=== PATIENT | female | born 1935 | race Caucasian/White ===

== ENCOUNTER → 2018-02-02 12:48 | Outpatient (CLI) | payer MEDICARE, SELFPAY ==
--- NOTE | 2018-02-02 13:05 | XR_ITS ---
XR chest 2V HISTORY: ITS.REASON: SHORTNESS OF BREATH ORDERING PHYSICIAN: Nj Kuo MD PATIENT AGE: 82 years COMPARISON: [id number] FINDINGS: Cardiac pacemaker device is present. Borderline cardiomegaly without failure. Chronic changes are present in the anterior clear space and in the right middle lobe. Increased markings are present in the left lung base laterally consistent with a patchy area of pneumonia. Right hemidiaphragm is slightly elevated. No acute bony anomalies. IMPRESSION: Chronic changes with patchy pneumonia in the left lung base laterally.
== END ==
PROVIDERS: PCP Family Medicine; Visit Provider Family Medicine
DX: R06.02 Shortness of breath (principal)
CPT/HCPCS: 71046

== ENCOUNTER → 2018-02-23 16:01 | Outpatient (CLI) | payer MEDICARE, SELFPAY ==
--- NOTE | 2018-02-23 16:06 | MM_ITS ---
MM Dig screening mamm BI w/CAD CAD Screening ORDERING PHYSICIAN : Nj Kuo MD PATIENT AGE: 82 years GENDER: Female COMPARISON: Previous mammograms: November 2015, July 2014. March 2010. INDICATION: Routine screening 82-year-old no hormones no new complaints noncontributory family history TECHNIQUE: Standard CC and MLO images were obtained. R2 CAD reviewed. FINDINGS: Low-density breast bilaterally with minimal fibrolinear elements. Generalized fatty replacement No dominant mass nor suspicious calcifications either breast.. No architectural distortion No significant new findings. Bilateral follow-up one year recommended . IMPRESSION:... ... Stable bilateral mammogram. Follow-up in one year recommended. BI-RADS Category: 1 Negative RECOMMENDED FOLLOW-UP: 1YR - 1 YEAR FOLLOW-UP (A letter has been sent to the patient regarding results of the study.)
== END ==
PROVIDERS: PCP Family Medicine; Visit Provider Family Medicine
DX: Z12.31 Encounter for screening mammogram for malignant neoplasm of breast (principal)
CPT/HCPCS: 77067

== ENCOUNTER → 2018-03-18 15:14 | Outpatient (POV) | payer MEDICARE, SELFPAY | PROVIDERS: PCP Family Medicine; Visit Provider Dermatology | DX: Z00.00 Encounter for general adult medical examination without abnormal findings (principal) ==

== ENCOUNTER 2018-08-12 09:45 | Outpatient (CLI) | payer MEDICARE, SELFPAY ==
[2018-08-12 10:50] VITALS: BP 112/54; PULSE 72; RESP 16; O2SAT 93
[2018-08-12 11:14] LABS: Anion Gap 13.6 mEq/L (5-15); Blood Urea Nitrogen 18 mg/dL (7-18); Calcium 9.5 mg/dL (8.5-10.1); Carbon Dioxide 27 mmol/L (21.0-32.0); Chloride 104 mmol/L (98-107); Creatinine,Serum 1.12 mg/dL (0.55-1.02); Estimated Glomerular Filt Rate 47 ml/min (>60); GFR (African American) 57 ML/MIN (>60); Glucose 93 mg/dL (74-106); Sodium 140 mmol/L (136-145)
[2018-08-12 11:17] LABS: Potassium 4.6 mmoL/L (3.5-5.1)
[2018-08-12 11:20] VITALS: BP 102/64; PULSE 75; RESP 18
[2018-08-12 11:30] VITALS: BP 92/58; PULSE 74; RESP 18
== END 2018-08-12 11:45 | disposition home or self-care (01) ==
LOC: INF 09:47
PROVIDERS: PCP Family Medicine; Visit Provider Urology
DX: N39.0 Urinary tract infection, site not specified (principal)
CPT/HCPCS: 80048; 96365; J1335

== ENCOUNTER 2018-08-13 09:50 | Outpatient (CLI) | payer MEDICARE, SELFPAY ==
[2018-08-13 10:30] VITALS: BP 142/95; PULSE 98; RESP 20; TEMP 36.4; O2SAT 96
[2018-08-13 11:00] VITALS: BP 138/74; PULSE 66; RESP 20; TEMP 36.4; O2SAT 96
== END 2018-08-13 11:00 | disposition home or self-care (01) ==
LOC: INF 10:09
PROVIDERS: PCP Family Medicine; Visit Provider Urology
DX: N39.0 Urinary tract infection, site not specified (principal)
CPT/HCPCS: 96365; J1335

== ENCOUNTER → 2018-08-14 10:11 | Outpatient (CLI) | payer MEDICARE, SELFPAY ==
[2018-08-14 10:24] VITALS: BP 146/59; PULSE 78; RESP 18; TEMP 36.2; O2SAT 98; BMI 27.3
[2018-08-14 11:15] VITALS: BP 124/64; PULSE 88; RESP 18; TEMP 36.7; O2SAT 97
== END ==
PROVIDERS: PCP Family Medicine; Visit Provider Urology
DX: N39.0 Urinary tract infection, site not specified (principal)
CPT/HCPCS: 96365; J1335

== ENCOUNTER → 2018-08-15 10:12 | Outpatient (CLI) | payer MEDICARE, SELFPAY ==
[2018-08-15 10:25] VITALS: BMI 27.3
[2018-08-15 10:30] VITALS: BP 120/50; PULSE 85; RESP 16; TEMP 36.4; O2SAT 100
[2018-08-15 11:20] VITALS: BP 112/60; PULSE 71; RESP 18; TEMP 36.7; O2SAT 100
== END ==
PROVIDERS: PCP Family Medicine; Visit Provider Urology
DX: N39.0 Urinary tract infection, site not specified (principal)
CPT/HCPCS: 96365; J1335

== ENCOUNTER 2018-08-16 10:04 | Outpatient (CLI) | payer MEDICARE, SELFPAY ==
[2018-08-16 10:14] VITALS: BP 115/64; PULSE 78; RESP 18; TEMP 36.5; O2SAT 98
[2018-08-16 11:05] VITALS: BP 112/68; PULSE 80; RESP 18; TEMP 36.6; O2SAT 98
== END 2018-08-16 11:05 | disposition home or self-care (01) ==
LOC: INF 10:04
PROVIDERS: Visit Provider Urology
DX: N39.0 Urinary tract infection, site not specified (principal)
CPT/HCPCS: 96365; J1335

== ENCOUNTER 2018-08-17 12:50 | Outpatient (CLI) | payer MEDICARE, SELFPAY ==
[2018-08-17 12:50] VITALS: BP 109/61; PULSE 97; RESP 20; TEMP 36.9; O2SAT 96
[2018-08-17 13:10] VITALS: BP 108/74; PULSE 68; RESP 20; TEMP 36.9; O2SAT 96
== END 2018-08-17 13:15 | disposition home or self-care (01) ==
LOC: INF 12:57
PROVIDERS: PCP Family Medicine; Visit Provider Urology
DX: N30.00 Acute cystitis without hematuria (principal)
CPT/HCPCS: 96365; J1335

== ENCOUNTER 2018-08-18 10:10 | Outpatient (CLI) | payer MEDICARE, SELFPAY ==
[2018-08-18 10:05] VITALS: BP 110/63; PULSE 108; RESP 18; TEMP 36.3; O2SAT 94
[2018-08-18 10:30] VITALS: BP 114/64; PULSE 79; RESP 18; TEMP 36.3; O2SAT 94
[2018-08-18 10:34] VITALS: BMI 26.9
[2018-08-18 10:45] VITALS: BP 114/64; PULSE 79; RESP 18; TEMP 36.3; O2SAT 95
[2018-08-18 11:15] VITALS: BP 124/63; PULSE 91; RESP 18; TEMP 36.2; O2SAT 94
== END 2018-08-18 11:15 | disposition home or self-care (01) ==
LOC: INF 10:24
PROVIDERS: PCP Family Medicine; Visit Provider Urology
DX: N30.00 Acute cystitis without hematuria (principal)
CPT/HCPCS: 96365; J1335

== ENCOUNTER 2018-08-19 11:15 | Outpatient (CLI) | payer MEDICARE, SELFPAY ==
[2018-08-19 11:25] VITALS: BP 116/68; PULSE 74; RESP 18; TEMP 36.7; O2SAT 96
[2018-08-19 12:10] VITALS: BP 118/69; PULSE 78; RESP 18; TEMP 36.7; O2SAT 96
== END 2018-08-19 12:10 | disposition home or self-care (01) ==
LOC: INF 11:15
PROVIDERS: PCP Family Medicine; Visit Provider Urology
DX: N39.0 Urinary tract infection, site not specified (principal)
CPT/HCPCS: 96365; J1335

== ENCOUNTER 2018-08-20 10:25 | Outpatient (CLI) | payer MEDICARE, SELFPAY ==
[2018-08-20 10:50] VITALS: BP 109/61; PULSE 75; RESP 18; TEMP 35.9; O2SAT 100
[2018-08-20 11:20] VITALS: BP 104/71; PULSE 70; RESP 18
[2018-08-20 11:35] VITALS: BP 119/61; PULSE 70; RESP 18
== END 2018-08-20 11:55 | disposition home or self-care (01) ==
LOC: INF 10:29
PROVIDERS: PCP Family Medicine; Visit Provider Urology
DX: N30.00 Acute cystitis without hematuria (principal)
CPT/HCPCS: 96365; J1335

== ENCOUNTER → 2018-08-21 10:15 | Outpatient (CLI) | payer MEDICARE, SELFPAY ==
[2018-08-21 10:15] VITALS: BP 104/62; PULSE 80; RESP 16; TEMP 36.2; O2SAT 95
[2018-08-21 10:54] VITALS: BP 111/67; PULSE 80; RESP 18; TEMP 36.2; O2SAT 95; BMI 26.9
== END ==
PROVIDERS: PCP Family Medicine; Visit Provider Urology
DX: N39.0 Urinary tract infection, site not specified (principal)
CPT/HCPCS: 96365; J1335

== ENCOUNTER → 2019-05-10 09:19 | Outpatient (CLI) | payer MEDICARE, SELFPAY ==
--- NOTE | 2019-05-10 09:25 | US_ITS ---
US liver HISTORY: ITS.REASON: ABN ALKALINE PHOSPHATASE TEST ORDERING PHYSICIAN: Nj Kuo MD PATIENT AGE: 83 years COMPARISON: None FINDINGS: Common bile duct measures 3.1 mm. The hepatic veins and portal veins appear to be unremarkable. The echogenicity of the liver is normal. Visualized portions of the right kidney and pancreas are normal. AP diameter of the right hepatic lobe is 10.6 cm. IMPRESSION: Normal ultrasound of the liver.
== END ==
PROVIDERS: PCP Family Medicine; Visit Provider Family Medicine
DX: R74.8 Abnormal levels of other serum enzymes (principal)
CPT/HCPCS: 76705

== ENCOUNTER → 2019-06-07 14:03 | Outpatient (POV) | payer MEDICARE, SELFPAY | PROVIDERS: Visit Provider Dermatology | DX: Z00.00 Encounter for general adult medical examination without abnormal findings (principal) ==

== ENCOUNTER → 2019-07-05 14:23 | Outpatient (POV) | payer MEDICARE, SELFPAY | PROVIDERS: Visit Provider Dermatology | DX: Z00.00 Encounter for general adult medical examination without abnormal findings (principal) ==

== ENCOUNTER 2019-08-11 16:00 | Outpatient (RCR) | payer MEDICARE, SELFPAY | END 2019-08-11 16:05 | disposition home or self-care (01) | LOC: PT 16:00 | PROVIDERS: Visit Provider Dermatology | DX: L97.211 Non-pressure chronic ulcer of right calf limited to breakdown of skin (principal) | CPT/HCPCS: 97140; 97162; 97597 ==

== ENCOUNTER → 2019-12-12 17:12 | Outpatient (CLI) | payer MEDICARE, SELFPAY | PROVIDERS: Visit Provider Nurse Practitioner Obstetrics & Gynecology | DX: N39.0 Urinary tract infection, site not specified (principal) | CPT/HCPCS: 87086; 87088; 87186 ==

== ENCOUNTER → 2020-09-20 12:48 | Outpatient (CLI) | payer MEDICARE, SELFPAY ==
--- NOTE | 2020-09-20 12:53 | MM_ITS ---
PROCEDURE: MM DIG SCREENING MAMM BI W/CAD Digital Breast Tomosynthesis Included CLINICAL INDICATION: SCREENING There is no personal or family history of breast cancer. COMPARISON: MG DMSB DIG MAMM-SCREEN JOSÉ MIGUEL from 08/08/2014 MG DMSB DIG MAMM-SCREEN JOSÉ MIGUEL from 12/04/2015 MG [facility] MM Dig screening mamm BI w/CAD from 02/23/2018 TECHNIQUE: Standard CC and MLO images and 3D Tomosynthesis was obtained. R2 CAD reviewed. FINDINGS: There are fibroglandular densities are seen throughout both breast and the findings are fairly symmetrical bilaterally. There is minimal arterial calcification in each breast. There is a cardiac pacemaker device projecting over left axilla. This lesion and no suspicious microcalcifications. IMPRESSION: Mild to moderate breast density with no suspicious lesions seen BI-RAD Category: 2 Benign Finding(s) FOLLOW-UP: 1YR 1 Year Follow-up (A letter has been sent to the patient regarding results of the study.) Dictated by: Dr. David Fair MD 09/25/2020 09:33 Dr. David Fair MD in [place] 09/25/2020 09:33
== END ==
PROVIDERS: PCP Family Medicine; Visit Provider Family Medicine
DX: Z12.31 Encounter for screening mammogram for malignant neoplasm of breast (principal)
CPT/HCPCS: 77063; 77067

== ENCOUNTER → 2020-12-05 13:57 | Outpatient (CLI) | payer MEDICARE, SELFPAY ==
--- NOTE | 2020-12-05 14:04 | XR_ITS ---
PROCEDURE: XR ELBOW RT MIN 3V CLINICAL INDICATION: RT ELBOW PAIN COMPARISON: No exams were available for comparison FINDINGS: No fracture or dislocation. No lytic or blastic change. There is normal mineralization. The joint spaces are well-preserved. No significant degenerative/arthritic changes. No erosive changes evident. Other findings:Mild soft tissue swelling is present at the olecranon region with some faint calcification in the soft tissues at this area. IMPRESSION: No acute fracture or dislocation. Frontal mild soft tissue swelling and minimal soft tissue calcification at the olecranon region which could be posttraumatic or inflammatory Dictated by: Armen Gonzales MD 12/05/2020 15:22 Armen Gonzales MD in [place] 12/05/2020 15:22
--- NOTE | 2020-12-05 14:04 | XR_ITS ---
PROCEDURE: XR SHOULDER LT MIN 2V CLINICAL INDICATION: ROTATOR CUFF SYNDROME OF LT SHOULDER Left shoulder pain COMPARISON: No exams were available for comparison FINDINGS: There are minimal osteoarthritic changes of the glenohumeral joint. There is some mild hypertrophy along the inferior aspect the acromion with resultant subacromial stenosis. Cardiac pacemaker is present from left subclavian approach. Other findings:None. 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 Hypertrophy along the inferior aspect of the acromion with resultant subacromial stenosis which may result in rotator cuff disease. Dictated by: Armen Gonzales MD 12/05/2020 15:24 Armen Gonzales MD in [place] 12/05/2020 15:24
== END ==
PROVIDERS: PCP Family Medicine; Visit Provider Family Medicine
DX: M75.102 Unspecified rotator cuff tear or rupture of left shoulder, not specified as traumatic (principal); M25.521 Pain in right elbow
CPT/HCPCS: 73030; 73080

== ENCOUNTER → 2020-12-14 09:07 | Outpatient (CLI) | payer MEDICARE, SELFPAY ==
--- NOTE | 2020-12-14 09:11 | US_ITS ---
PROCEDURE: US ABDOMEN LIMITED CLINICAL INDICATION: ABN LIVER FUNCTION COMPARISON: No exams were available for comparison FINDINGS: PANCREAS: Unremarkable. No obvious mass or abnormal fluid collection. No ductal dilatation LIVER: No focal liver lesions demonstrated. Homogeneous echogenicity. No intrahepatic biliary ductal dilatation evident. There is appropriate direction of blood flow within a non dilated portal vein RIGHT KIDNEY: Unremarkable. Normal size and echogenicity. No hydronephrosis GALLBLADDER: Prior cholecystectomy. The common bile duct normal at 4 mm. IMPRESSION: Status post cholecystectomy otherwise negative right upper quadrant ultrasound Dictated by: Armen Gonzales MD 12/14/2020 17:28 Armen Gonzales MD in [place] 12/14/2020 17:28
== END ==
PROVIDERS: PCP Family Medicine; Visit Provider Family Medicine
DX: R94.5 Abnormal results of liver function studies (principal)
CPT/HCPCS: 76705

== ENCOUNTER → 2021-09-03 13:06 | Outpatient (POV) | payer MEDICARE, SELFPAY | PROVIDERS: Visit Provider Dermatology | DX: Z00.00 Encounter for general adult medical examination without abnormal findings (principal) ==

== ENCOUNTER 2021-12-15 06:47 | Observation (INO) | payer MEDICARE, SELFPAY ==
[2021-12-15] VITALS (23 sets, daily range): BP systolic 120–156; BP diastolic 68–94; PULSE 48–93; RESP 16–29; TEMP 36.4–36.6; O2SAT 84–98; BMI 25.8; BMI 26.6
--- NOTE | 2021-12-15 06:58 | ECG_ITS ---
APPROVED REPORT Exam: Resting ECG HR:82 bpm ECG Measurements Heart Rate 82 AXES QRSd 100 QRS 111 QT 387 T -69 QTc 426 Conclusion UNCERTAIN IRREGULAR RHYTHM ELECTRONIC VENTRICULAR PACEMAKER -- CONTOUR ANALYSIS BASED ON INTRINSIC RHYTHM POSSIBLE RIGHT VENTRICULAR HYPERTROPHY [SOME/ALL OF: PROMINENT R IN V1, LATE TRANSITION, RAD, BAKARI, SSS] ST DEVIATION AND MODERATE T-WAVE ABNORMALITY, CONSIDER LATERAL ISCHEMIA [-0.1+ mV T-WAVE IN I/aVL/V5/V6] ST DEVIATION AND MODERATE T-WAVE ABNORMALITY, CONSIDER INFERIOR ISCHEMIA [-0.1+ mV T-WAVE IN II/aVF] ABNORMAL ECG UNCONFIRMED REPORT Electronically signed by : Demetrio Mendosa MD 12/16/2021 17:28:58
--- NOTE | 2021-12-15 07:04 | XR_ITS ---
PROCEDURE INFORMATION: Exam: XR Chest Exam date and time: 12/15/2021 7:04 AM Age: 86 years old Clinical indication: Shortness of breath; Prior surgery; Surgery date: 6+ months; Surgery type: Pacemaker; Additional info: SOA TECHNIQUE: Imaging protocol: XR of the chest. Views: 1 view. COMPARISON: DX CXR2V XR chest 2V 02/02/2018 1:07 PM FINDINGS: Tubes, catheters and devices: There is a cardiac pacemaker in place. Lungs: There is ill-defined airspace and interstitial opacity in the perihilar region on the right, and right lower lobe. There is mild prominence of interstitial markings in the left perihilar region. Pleural spaces: There is a pleural effusion at the right lung base. Heart/Mediastinum: Unremarkable. No cardiomegaly. Bones/joints: Unremarkable. IMPRESSION: 1. Perihilar interstitial prominence, with possible infiltrate right lower lobe. This may be seen with pulmonary edema. Clinical correlation is recommended. 2. Small right-sided pleural effusion.
--- NOTE | 2021-12-15 07:11 | PC.NURSE ---
Covid Swab sent to the lab
--- NOTE | 2021-12-15 07:12 | ECG_ITS ---
APPROVED REPORT Exam: Resting ECG HR:74 bpm ECG Measurements Heart Rate 74 AXES QRSd 96 QRS 109 QT 411 T -86 QTc 438 Conclusion UNCERTAIN IRREGULAR RHYTHM ELECTRONIC VENTRICULAR PACEMAKER -- CONTOUR ANALYSIS BASED ON INTRINSIC RHYTHM RIGHT AXIS DEVIATION [QRS AXIS > 100] ST DEVIATION AND MODERATE T-WAVE ABNORMALITY, CONSIDER LATERAL ISCHEMIA [-0.1+ mV T-WAVE IN I/aVL/V5/V6] ST DEVIATION AND MODERATE T-WAVE ABNORMALITY, CONSIDER INFERIOR ISCHEMIA [-0.1+ mV T-WAVE IN II/aVF] ABNORMAL ECG UNCONFIRMED REPORT Electronically signed by : Demetrio Mendosa MD 12/16/2021 17:28:48
--- NOTE | 2021-12-15 07:16 | PC.NURSE ---
radiology bedside doing chest xray
--- NOTE | 2021-12-15 07:42 | HMH.EDSOB ---
ED Disposition Clinical Impression: SIRS (systemic inflammatory response syndrome) Congestive heart failure Qualifiers: Heart failure type: unspecified Heart failure chronicity: acute Qualified Code(s): I50.9 - Heart failure, unspecified A-fib Qualifiers: Atrial fibrillation type: unspecified chronic Qualified Code(s): I48.20 - Chronic atrial fibrillation, unspecified UTI (urinary tract infection) Qualifiers: Urinary tract infection type: site unspecified Hematuria presence: without hematuria Qualified Code(s): N39.0 - Urinary tract infection, site not specified Hypothyroidism Qualifiers: Hypothyroidism type: acquired Qualified Code(s): E03.9 - Hypothyroidism, unspecified Disposition: Admitted As Inpatient Condition on Discharge: Fair Referrals: Maximino Naqvi MD [Primary Care Provider] - - Critical Care Critical Care Time: No Attestation: On 12/15/21, the high probability of a clinically significant, sudden or life threatening deterioration of the following system(s) required my full and direct attention, intervention and personal management. The time I documented below is in addition to time spent performing reported procedures but includes the following listed in this critical care notation. Medical Decision Making - Medical Records Medical records reviewed: Yes: I reviewed the patient's medical records. - Leon Inquiry Pt receiving controlled substance: No Vital Signs: 12/15/21 06:49 12/15/21 07:00 12/15/21 07:15 Temperature 97.5 F L Temperature Source Oral Pulse Rate 76 60 Pulse Rate [Right Radial] 82 Respiratory Rate 18 29 H 21 Blood Pressure 152/94 H 144/74 H Blood Pressure [Right Arm] 152/94 H Blood Pressure Mean Blood Pressure Mean [Right Arm] 113 Blood Pressure Source [Right Arm] Automatic Cuff Blood Pressure Position [Right Arm] Sitting 02 Sat by Pulse Oximetry 90 L 88 L 95 Oxygen Delivery Method Room Air Oxygen Flow Rate (LPM) 12/15/21 07:30 12/15/21 07:45 12/15/21 08:09 Temperature Temperature Source Pulse Rate 48 L 75 93 H Pulse Rate [Right Radial] Respiratory Rate 16 22 26 H Blood Pressure 148/86 H 152/84 H Blood Pressure [Right Arm] Blood Pressure Mean Blood Pressure Mean [Right Arm] Blood Pressure Source [Right Arm] Blood Pressure Position [Right Arm] 02 Sat by Pulse Oximetry 93 L 96 92 L Oxygen Delivery Method Oxygen Flow Rate (LPM) 12/15/21 08:13 01/30/22 08:29 12/15/21 09:00 Temperature Temperature Source Pulse Rate 86 81 83 Pulse Rate [Right Radial] Respiratory Rate 24 16 27 H Blood Pressure 156/82 H 146/74 H 144/88 H Blood Pressure [Right Arm] Blood Pressure Mean 109 98 Blood Pressure Mean [Right Arm] Blood Pressure Source [Right Arm] Blood Pressure Position [Right Arm] 02 Sat by Pulse Oximetry 95 94 L 96 Oxygen Delivery Method Nasal Cannula Nasal Cannula Nasal Cannula Oxygen Flow Rate (LPM) 2 2 2 12/15/21 09:30 Temperature Temperature Source Pulse Rate 89 Pulse Rate [Right Radial] Respiratory Rate 24 Blood Pressure 140/81 Blood Pressure [Right Arm] Blood Pressure Mean 107 Blood Pressure Mean [Right Arm] Blood Pressure Source [Right Arm] Blood Pressure Position [Right Arm] 02 Sat by Pulse Oximetry 96 Oxygen Delivery Method Nasal Cannula Oxygen Flow Rate (LPM) 2 - Lab Data Lab results reviewed: Yes: I reviewed the patient's lab results. Lab Results 12/15/21 07:11: WBC 8.5, RBC 4.51, Hgb 12.5, Hct 48.3 H, MCV 107.1 H, MCH 27.8, MCHC 26.0 L, RDW 20.6 H, Plt Count 280, MPV 23.6 H, Neut % (Auto) 70.2, Lymph % (Auto) 19.6, Ralls % (Auto) 8.1, Eos % (Auto) 2.1, Baso % (Auto) 15.1 H, Neut # (Auto) 6.0, Lymph # (Auto) 1.7, [place] # (Auto) 0.7, Eos # (Auto) 0.2, Baso # (Auto) 1.3 H, ESR 17 12/15/21 07:11: Sodium 143, Potassium 3.5, Chloride 108 H, Carbon Dioxide 24, Anion Gap 14.5, BUN 16, Creatinine 0.60, Estimated Creat Clear 49, Estimated GFR 95, Est GFR ( Amer
[2021-12-15 07:48] LABS: Coronavirus 19, PCR Not Detected (NotDetected); Influenza A, PCR Not Detected (NotDetected); Influenza B, PCR Not Detected (NotDetected)
--- NOTE | 2021-12-15 07:59 | PC.NURSE ---
pt up to the bathroom, nurses bedside
[2021-12-15 08:02] LABS: Alanine Aminotransferase 15 U/L (12-78); Albumin Level 4.5 g/dl (3.5-5.0); Alkaline Phosphatase 157 U/L (38-126); Anion Gap 14.5 mEq/L (5-15); Aspartate Amino Transferase 29 U/L (14-36); Basophils # 1.3 K/mm3 (0-0.2); Basophils % 15.1 % (0.1-2.0); Bilirubin,Direct 0.1 mg/dl (0.0-0.4); Bilirubin,Indirect 2.2 mg/dL (0.0-0.9); Bilirubin,Total 2.3 mg/dl (0.2-1.3); Bilirubin,Unconjugated 2.2 mg/dL (0.0-1.1); Blood Urea Nitrogen 16 mg/dl (7-17); Calcium 9.8 mg/dl (8.4-10.2); Carbon Dioxide 24 mmol/L (22.0-30.0); Chloride 108 mmol/L (98-107); Creatinine Clearance Estimated 49 mL/min (50-200); Eosinophils # 0.2 K/mm3 (0.0-0.4); Eosinophils % 2.1 % (0.1-12.0); Estimated Glomerular Filt Rate 95 ml/min (>60); GFR (African American) 115 ML/MIN (>60); Glucose 110 mg/dl (74-100); Hematocrit 48.3 % (37.0-47.0); Hemoglobin 12.5 g/dL (12.2-16.2); Lymphocytes # 1.7 K/mm3 (0.7-4.5); Lymphocytes % 19.6 % (10-50); Mean Corpuscular Hemoglobin 27.8 pg (27.0-31.2); Mean Corpuscular Volume 107.1 fl (81-99); Mean Platelet Volume 23.6 fl (7.4-10.4); Monocytes # 0.7 K/mm3 (0.1-1.0); Monocytes % 8.1 % (1.7-9.3); Neutrophils % 70.2 % (37.0-80.0); Platelet Count 280 K/mm3 (142-424); Potassium 3.5 mmoL/L (3.5-5.1); Red Blood Count 4.51 M/mm3 (4.20-5.40); Red Cell Distribution Width 20.6 % (11.5-17.5); Sodium 143 mmol/L (136-145); Total Protein,Serum 7.8 g/dl (6.3-8.2); White Blood Count 8.5 K/mm3 (4.8-10.8)
--- NOTE | 2021-12-15 08:09 | PC.NURSE ---
assisted pt out of restroom and into wheelchair. Helped her to get back in bed and hooked her back up to the oxygen, cardiac monitoring, and vital signs. Call light is within reach. Pt resting in bed at this time.
--- NOTE | 2021-12-15 08:10 | PC.NURSE ---
urine output 300cc
[2021-12-15 08:14] LABS: Microscopic, Urine URINE MICROSCOPIC (MICROSCOPIC)
[2021-12-15 08:17] LABS: NT Pro Brain Natriuretic Pep. 840 pg/mL (0-450)
[2021-12-15 08:18] LABS: Appearance,Urine SL CLOUDY (Clear); Bilirubin,Urine Negative (Negative); Blood, Urine 1+ (Negative); Color,Urine YELLOW (Yellow); Glucose,Urine (UA) Negative (Negative); Ketones,Urine Negative (Negative); Leukocyte Esterase,Urine 3+ (Negative); Nitrate,Urine POSITIVE (Negative); PH,Urine 5.5 (5.0-8.5); Protein,Urine Negative (Negative); Urobilinogen,Urine 0.2 EU/dl (0.2)
[2021-12-15 08:20] LABS: Troponin I < 0.01 ng/ml (0.00-0.034)
[2021-12-15 08:21] LABS: Procalcitonin 0.048 ng/mL (0.0-2.0)
[2021-12-15 08:27] LABS: Bacteria,Urine 4+ /lpf; Squamous Epithelial Cell,Urine Occasional #/hpf (0-5); WBC,Urine 50-100 #/hpf (0-3)
[2021-12-15 08:35] LABS: Thyroid Stimulating Hormone 5.33 uIU/mL (0.465-4.68)
[2021-12-15 08:40] LABS: Erythrocyte Sedimentation Rate 17 mm/hr (0-30)
--- NOTE | 2021-12-15 08:44 | PC.NURSE ---
pt up to bathroom per wheelchair, urine output 450cc
--- NOTE | 2021-12-15 09:30 | PC.NURSE ---
Patient was taken to the bathroom. Output in the hat was 100mL. Patient stated not all of the urine made it into the hat.
--- NOTE | 2021-12-15 09:46 | PC.NURSE ---
called house for admission, stated that she would let us know when we have a bed available, currently using open rooms for outpatient services, but once someone left she would have it cleaned STAT and would notify admissions with room number.
--- NOTE | 2021-12-15 09:49 | PC.NURSE ---
up to the bathroom with assistance x1.
--- NOTE | 2021-12-15 09:52 | PC.NURSE ---
assisted pt out of the bathroom. Voided 550cc. of clear urine. Helped back into bed; placed back on cardiac monitoring, vital signs, and oxygen of 2 liters. call light within reach.
--- NOTE | 2021-12-15 10:17 | PC.NURSE ---
Lab in room drawing lactic acid and blood cultures.
--- NOTE | 2021-12-15 10:36 | PC.NURSE ---
pt up to bathroom at this time. assistance of 1.
--- NOTE | 2021-12-15 10:44 | PC.NURSE ---
pt back in bed after going to the bathroom. Voided 500cc of clear urine. assisted back to bed with assist x1. hooked up to cardiac monitoring, oxygen and vital signs. call light within reach.
--- NOTE | 2021-12-15 11:30 | PC.NURSE ---
report called to floor. states room not ready will call when cleaned
[2021-12-15 11:33] LABS: Troponin I < 0.01 ng/ml (0.00-0.034)
--- NOTE | 2021-12-15 11:46 | PC.NURSE ---
pt up to the bathroom, assist x1.
--- NOTE | 2021-12-15 11:55 | PC.NURSE ---
Wheeled patient to the bathroom. Output was 400 mL
--- NOTE | 2021-12-15 12:00 | PC.NURSE ---
dietary brought patient a lunch tray. pt sitting up eating. call light within reach.
--- NOTE | 2021-12-15 12:13 | PC.NURSE ---
Notified [facility] ED RN that room is clean and ready for patient to come up.
--- NOTE | 2021-12-15 12:45 | PC.NURSE ---
Pt arrived to the floor at this time.
[2021-12-15 13:39] LABS: Troponin I < 0.01 ng/ml (0.00-0.034)
[2021-12-16] VITALS: BP 149/73; PULSE 90; PULSE 92; RESP 16; TEMP 36.7; O2SAT 94
--- NOTE | 2021-12-16 03:35 | PC.NURSE ---
pt with strong foul smelling urine noted, cloudy and yuri colored, pt sob w/exertion, 02 sats noted to be 88% on 2 L pnc and increased to 3L pnc. pt states soa better than what it was before coming into the hospital.
[2021-12-16 04:00] VITALS: BP 156/82; PULSE 66; PULSE 90; RESP 18; TEMP 36.8; O2SAT 94
[2021-12-16 05:00] VITALS: BMI 32.0
--- NOTE | 2021-12-16 07:17 | HMH.PHAVTE ---
[facility] Pharmacy VTE Monitoring - Patient Demographics Admission date: 12/15/21 Report Date: 12/16/21 Time: 07:18 Allergies/Adverse Reactions: Patient Allergies ciprofloxacin [From CIPRO] Allergy (Mild, Verified 06/20/20 13:23) I-RASH Height: 1.5 m Weight: 72 kg Patient Problems: Current Active Problems Congestive heart failure (Acute) A-fib (Acute) UTI (urinary tract infection) (Acute) SIRS (systemic inflammatory response syndrome) (Acute) Hypothyroidism (Acute) - VTE Risk Labs: VTE Related Lab Results Hgb 12.5 g/dL (12.2-16.2) 12/15/21 07:11 Hct 48.3 % (37.0-47.0) H 12/15/21 07:11 Plt Count 280 K/mm3 (142-424) 12/15/21 07:11 BUN 16 mg/dl (7-17) 12/15/21 07:11 Creatinine 0.60 mg/dl (0.52-1.04) 12/15/21 07:11 Estimated Creat Clear 49 mL/min (50-200) 12/15/21 07:11 Was VTE Risk Assessment Performed: Yes VTE Score: 5 VTE Risk Level: Low Risk - Prophylaxis VTE Prophylaxis Ordered?: Yes Types of VTE Prophylaxis: TEDS Knee High, Pharmacological Location of Applied Device: Bilateral Lower Extremeties Pharmacologic Type: Other (XARELTO)
--- NOTE | 2021-12-16 07:30 | XR_ITS ---
FINAL REPORT TECHNIQUE: Single view chest CLINICAL HISTORY: sob COMPARISON: 12/15/2021 FINDINGS: A single view of the chest was obtained. There is a left subclavian pacemaker. The heart and mediastinum are within normal limits. There is pulmonary vascular congestion. Pulmonary opacities may represent edema or pneumonia. There is right base atelectasis or pneumonia with small, right greater than left pleural effusions. There is no pneumothorax. Osseous structures are unremarkable. IMPRESSION: Pulmonary opacities which may represent edema or pneumonia with right greater than left pleural effusions. Reviewed, Interpreted and Dictated by Gerry Ospina III, MD Transcribed by Agatah Dailey Authenticated by Gerry Ospina III, MD on 12/16/2021 08:57:[address] [facility]
--- NOTE | 2021-12-16 07:30 | HMH.PHAINT ---
MEDICATION RECONCILIATION COMPLETED ON PATIENT USING EXTERNAL FILL HISTORY FROM PHARMACY. -PARAM BURCH, [place]
[2021-12-16 07:40] VITALS: BP 137/56; PULSE 86; RESP 14; TEMP 36.4; O2SAT 91
[2021-12-16 07:44] LABS: Basophils # 0.1 K/mm3 (0-0.2); Basophils % 0.8 % (0.1-2.0); Eosinophils # 0.2 K/mm3 (0.0-0.4); Hematocrit 37.6 % (37.0-47.0); Hemoglobin 11.7 g/dL (12.2-16.2); Lymphocytes # 1.4 K/mm3 (0.7-4.5); Lymphocytes % 17.4 % (10-50); Mean Corpuscular HGB Conc 31.1 g/dL (31.8-35.4); Mean Platelet Volume 7.9 fl (7.4-10.4); Monocytes # 0.6 K/mm3 (0.1-1.0); Monocytes % 6.9 % (1.7-9.3); Neutrophils % 72.8 % (37.0-80.0); Platelet Count 299 K/mm3 (142-424); Red Blood Count 4.18 M/mm3 (4.20-5.40); White Blood Count 8.2 K/mm3 (4.8-10.8)
[2021-12-16 07:58] LABS: Anion Gap 13.4 mEq/L (5-15); Blood Urea Nitrogen 16 mg/dl (7-17); Calcium 9.3 mg/dl (8.4-10.2); Carbon Dioxide 26 mmol/L (22.0-30.0); Chloride 107 mmol/L (98-107); Creatinine Clearance Estimated 48 mL/min (50-200); Estimated Glomerular Filt Rate 95 ml/min (>60); GFR (African American) 115 ML/MIN (>60); Glucose 103 mg/dl (74-100); Magnesium 1.9 mg/dl (1.6-2.3); Potassium 3.4 mmoL/L (3.5-5.1); Sodium 143 mmol/L (136-145)
[2021-12-16 08:00] VITALS: PULSE 86
--- NOTE | 2021-12-16 08:00 | CA_ITS ---
APPROVED REPORT EXAM: Comprehensive 2D, Doppler, and color-flow Echocardiogram Package Clerk: Tracey Neely CRT Ht: 5 ft 7 in Wt: 165lbs BSA: 1.86 BP: 140/81 mmHg Indications: Congestive Heart Failure, Atrial Fibrillation, TIA, PACER 2D Dimensions LVOT 1.74 cm (M/F) 1.5-2.5 LA Volume 44.50 mL LA Volume Index 23.90 mL/m2 (M/F) 16-34 M-Mode Dimensions RVDd 3.16 cm (0.9-2.6) LA Diam 3.89 cm (1.9-4.0) LVDd 4.07 cm (3.5-5.7) Ao Diam 3.13 cm (2.0-3.7) LVDs 2.56 cm (3.5-5.7) IVSd 1.35 cm (0.6-1.1) PWd 0.77 cm (0.6-1.1) EF (Teich) 67.50% FS 37.10% EDV (Teich) 72.90 mL TAPSE 1.26 (<1.7) ESV (Teich) 23.70 mL LV Diastology E Decel Time 87.00 (160-240 msec) E/A Ratio 2.45 LAT E' 11.20 (<10 cm/sec) LAT A' 7.20 cm/s E/LAT E' Ratio 10.76 (>14) Aortic Valve AO Peak GR. 6.00 mmHg Mitral Valve MV E Max Javed. 121.00 (40-130 cm/s) MV A Velocity 49.00 (40-130 cm/s) E/A Ratio 2.45 MV Decel. Time 87.00 (160-240 ms) MV PHT 25.00 ms Pulmonary Valve PV Peak Velocity 81.00 (50-150 cm/s) Tricuspid Valve TR P. Velocity 380.00 cm/s RAP Estimate 10.00 mmHg RVSP 67.60 mmHg Left Ventricle Left atrium is moderately enlarged, left ventricle is normal size, mild concentric left ventricular hypertrophy, visually estimated ejection fraction 50%, there is abnormal septal motion, diastolic parameters are inconclusive. Right Ventricle Right atrium and right ventricle moderately enlarged, contractility of the right ventricle is mildly reduced, there is catheter noted in the right ventricle which is likely pacemaker lead. Aortic Valve Aortic valve is minimally thickened and calcified without aortic stenosis or significant aortic insufficiency. Mitral Valve Mitral valve is grossly normal, there is mild mitral regurgitation. Tricuspid Valve Tricuspid valve is minimally thickened, there is moderate tricuspid regurgitation, calculated right ventricular systolic pressure is 57 mmHg. Pulmonic Valve Pulmonic valve is poorly visualized. Great Vessels Aortic root is normal size. Inferior vena cava is poorly visualized. Pericardium No significant pericardial effusion noted. Conclusion 1. Biatrial enlargement, normal left ventricular size, mild concentric left ventricular hypertrophy, visually estimated ejection fraction 50%, there is abnormal septal motion. Diastolic parameters are inconclusive. 2. Moderately enlarged right ventricle with mild reduced contractility. 3. Mild mitral and moderate tricuspid regurgitation, calculated right ventricular systolic pressure is 57 mmHg. 4. No significant pericardial effusion noted. 5. Inferior vena cava is poorly visualized. Electronically signed by : Prince Cardenas MD 12/16/2021 22:05:14
[2021-12-16 08:42] VITALS: O2SAT 88
--- NOTE | 2021-12-16 09:05 | HMH.HPDC ---
General - General Admission date:: 12/15/21 Discharge date: 12/16/21 *Admission Date: 12/15/21 *Chief complaint: Dyspnea/upper abdominal pain/dysuria *History of present illness: 86-year-old white female who recently established care with our practice who has been diagnosed with congestive heart failure, atrial fibrillation and chronic urinary tract infections. She has been prescribed Lasix by her previous physician but had not been taking this on a daily basis. She also had quite a bit of upheaval since the of her in June, and has been progressively more tired and short of air. Over the past couple of days this became worse, came to the emergency department yesterday when she was found to have bilateral pleural effusions, ankle edema, dyspnea, new oxygen requirement and evidence of UTI was admitted to the hospital. [facility] History I have reviewed the patient's past medical history: Yes Medical History: Reports:: Anxiety, Atrial Fibrillation, Cancer (melanoma, no chemo), Hyperlipidemia, Hypertension, Internal Pacemaker, Transient Ischemic Attacks (TIA), Ulcer Denies:: Diabetes Mellitus Type 1, Diabetes Mellitus Type 2, Lung Disease, MRSA, Seizures *Have you ever received a pneumonia vaccine?: Yes *Have you received a flu vaccine this season?: Yes Other Medical History: Reports: Arthritis (both knees, neck, hands), Cataracts (one removed right eye), Hypothyroidism, Thyroid Disease Other Surgeries: Yes: Cholecystectomy, Colonoscopy, Hysterectomy-Total, Pacemaker Amputation: No Fractures: No - *Social History Smoking Status: Never smoker Alcohol Intake: never Alcohol Intake Frequency:: holidays/special occasions only Substance Use Type: denies use *Occupational Status:: retired Housing: house Household Members: none *Travel in the last 8 weeks: None - Psychiatric History Pschychiatric History:: Reports:: Anxiety Family Hx:: No significant family history Review of Systems - Review of Systems Review of systems:: pertinent systems reviewed and negative unless documented below - *Neurologic Denies headache(s), Denies seizure-like activity Exam Vital signs and Labs for Last 24 Hours: Temp Pulse Resp BP Pulse Ox 97.5 F L 86 14 137/56 L 88 L 12/16/21 07:40 12/16/21 07:40 12/16/21 07:40 12/16/21 07:40 12/16/21 08:42 Laboratory Results - last 24 hr 12/15/21 10:15: Troponin I < 0.01 12/15/21 10:25: Lactate 1.0 12/15/21 13:04: Troponin I < 0.01 12/16/21 07:25: WBC 8.2, RBC 4.18 L, Hgb 11.7 L, Hct 37.6, MCV 90.0, MCH 28.0, MCHC 31.1 L, RDW 16.0, Plt Count 299, MPV 7.9, Neut % (Auto) 72.8, Lymph % (Auto) 17.4, [place] % (Auto) 6.9, Eos % (Auto) 2.0, Baso % (Auto) 0.8, Neut # (Auto) 6.0, Lymph # (Auto) 1.4, [place] # (Auto) 0.6, Eos # (Auto) 0.2, Baso # (Auto) 0.1 12/16/21 07:25: Sodium 143, Potassium 3.4 L, Chloride 107, Carbon Dioxide 26, Anion Gap 13.4, BUN 16, Creatinine 0.60, Estimated Creat Clear 48, Estimated GFR 95, Est GFR ( Amer) 115, Glucose 103 H, Calcium 9.3, Magnesium 1.9 I & O for Last 24 hours: Intake & Output 12/13/21 12/14/21 12/15/21 12/16/21 11:59 11:59 11:59 11:59 Intake Total 120 / 120 Output Total 600 / 600 Balance -480 / -480 Weight 160 lb 158 lb 11.725 oz Microbiology Reports for the Last 24 Hours: Microbiology 12/15/21 08:00 Urine,Clean Catch Urine Culture - Preliminary - Constitutional no acute distress - *Routine HEENT Exam Head: Present: normocephalic Eye: Present: EOMI, PERRL ENT: Present: mucous membranes moist - *Routine Neck Exam Present: supple. Absent: lymphadenopathy - *Routine Respiratory Exam Present: rales Comments: In bilateral bases. - *Routine Cardiovascular Exam Present: irregular rhythm - *Routine Abdominal Exam Present: soft, normoactive bowel sounds. Absent: tenderness Comments: Minimal tenderness in the epigastric area. - *Routine Rectal Exam Rectal:: deferred - *Routine Genitalia Exam Genita
--- NOTE | 2021-12-16 09:26 | SW/DCPLANNER ---
PATIENT IS DISCHARGING HOME TODAY AND NEEDS HOME 02, PATIENT HAS CHOSEN [facility]. SENT REFERRAL FOR A PORTABLE TANK TO BE DELIVERED TO HER ROOM PRIOR TO DISCHARGE. SHE IS TO SEE DR RENO IN THE OFFICE ON , 2 SONS AT BEDSIDE..
== END 2021-12-16 10:30 | disposition home or self-care (01) ==
LOC: ER 09:54 → 2ND 10:11
PROVIDERS: Admitting Provider Internal Medicine Adolescent Medicine; Emergency Provider Emergency Medicine; PCP Internal Medicine Adolescent Medicine; Visit Provider Internal Medicine Adolescent Medicine
DX: I11.0 Hypertensive heart disease with heart failure (principal); N39.0 Urinary tract infection, site not specified; Z79.01 Long term (current) use of anticoagulants; Z79.899 Other long term (current) drug therapy; I48.20 Chronic atrial fibrillation, unspecified; E03.9 Hypothyroidism, unspecified; I50.9 Heart failure, unspecified; Z95.0 Presence of cardiac pacemaker; Z20.822 Contact with and (suspected) exposure to COVID-19
CPT/HCPCS: G0378; 71045; 80048; 80076; 81001; 83605; 83735; 83880; 84145; 84436; 84443; 84484; 85025; 85651; 86140; 87040; 87086; 87088; 87186; 93005; 93306; 94760; 94761; 96365; 96375; 99284; C9803; J1335; J2405; U0003; U0005

== ENCOUNTER 2022-02-27 21:57 | Observation (INO) | payer MEDICARE, SELFPAY ==
[2022-02-27] VITALS (8 sets, daily range): BP systolic 85–97; BP diastolic 52–75; PULSE 71–75; RESP 12–18; TEMP 36.4; O2SAT 93–98; BMI 25.8
--- NOTE | 2022-02-27 22:06 | ECG_ITS ---
APPROVED REPORT Exam: Resting ECG HR:77 bpm ECG Measurements Heart Rate 77 AXES QRSd 181 QRS -85 QT 502 T 101 QTc 534 Conclusion ELECTRONIC VENTRICULAR PACEMAKER ABNORMAL RHYTHM ECG UNCONFIRMED REPORT Electronically signed by : Demetrio Mendosa MD 02/28/2022 09:56:23
--- NOTE | 2022-02-27 22:17 | XR_ITS ---
PROCEDURE INFORMATION: Exam: XR Chest Exam date and time: 02/27/2022 10:27 PM Age: 86 years old Clinical indication: Sternal or substernal pain; Prior surgery; Surgery date: 6+ months; Surgery type: Pacemaker placed. ; Additional info: Chest pain TECHNIQUE: Imaging protocol: XR of the chest. Views: 2 views. COMPARISON: CR XR CHEST PORTABLE 12/16/2021 8:13 AM FINDINGS: Tubes, catheters and devices: Dual lead left-sided cardiac pacemaker. Lungs: In the right lung base there is atelectasis /pneumonia. Left lung shows linear atelectasis in the left lower lobe. Pleural spaces: Mild right pleural effusion. Heart/Mediastinum: Cardiomegaly. Diaphragm: Elevated right hemidiaphragm. Bones/joints: Unremarkable. IMPRESSION: Mild right pleural effusion with associated atelectasis /pneumonia.
[2022-02-27 22:39] LABS: Alanine Aminotransferase 25 U/L (12-78); Albumin Level 4.2 g/dl (3.5-5.0); Albumin/Globulin Ratio 1.4 (1.1-1.8); Alkaline Phosphatase 146 U/L (38-126); Anion Gap 15.2 mEq/L (5-15); Aspartate Amino Transferase 37 U/L (14-36); Bilirubin,Total 1.9 mg/dl (0.2-1.3); Blood Urea Nitrogen 38 mg/dl (7-17); Calcium 9.4 mg/dl (8.4-10.2); Carbon Dioxide 22 mmol/L (22.0-30.0); Chloride 103 mmol/L (98-107); Creatinine Clearance Estimated 40 mL/min (50-200); Estimated Glomerular Filt Rate 43 ml/min (>60); GFR (African American) 52 ML/MIN (>60); Globulin 2.9 g/dL (1.3-3.2); Glucose 162 mg/dl (74-100); Potassium 4.2 mmoL/L (3.5-5.1); Sodium 136 mmol/L (136-145); Total Protein,Serum 7.1 g/dl (6.3-8.2)
[2022-02-27 22:40] LABS: Alanine Aminotransferase 25 U/L (12-78); Albumin Level 4.3 g/dl (3.5-5.0); Alkaline Phosphatase 152 U/L (38-126); Aspartate Amino Transferase 36 U/L (14-36); Bilirubin,Direct 0.1 mg/dl (0.0-0.4); Bilirubin,Indirect 1.8 mg/dL (0.0-0.9); Bilirubin,Total 1.9 mg/dl (0.2-1.3); Bilirubin,Unconjugated 1.8 mg/dL (0.0-1.1); Total Protein,Serum 7.1 g/dl (6.3-8.2)
[2022-02-27 22:57] LABS: Troponin I < 0.01 ng/ml (0.00-0.034)
[2022-02-27 23:10] LABS: Thyroid Stimulating Hormone 1.74 uIU/mL (0.465-4.68)
[2022-02-27 23:22] LABS: NT Pro Brain Natriuretic Pep. 883 pg/mL (0-450)
--- NOTE | 2022-02-27 23:24 | HMH.EDDIZZ ---
ED Disposition Clinical Impression: Duodenitis, OZZIE (acute kidney injury) Hypothyroidism Qualifiers: Hypothyroidism type: acquired Qualified Code(s): E03.9 - Hypothyroidism, unspecified Disposition: Admitted As Inpatient Condition on Discharge: Good Referrals: Maximino Naqvi MD [Primary Care Provider] - - Critical Care Critical Care Time: No Attestation: On 02/27/22, the high probability of a clinically significant, sudden or life threatening deterioration of the following system(s) required my full and direct attention, intervention and personal management. The time I documented below is in addition to time spent performing reported procedures but includes the following listed in this critical care notation. Medical Decision Making - Medical Records Medical records reviewed: Yes: I reviewed the patient's medical records. - Leon Inquiry Pt receiving controlled substance: No Vital Signs: 02/27/22 21:57 02/27/22 22:43 02/27/22 22:44 Temperature 97.6 F Temperature Source Oral Pulse Rate 72 71 Pulse Rate [Left Radial] 75 Respiratory Rate 18 14 14 Blood Pressure 96/54 L 97/52 L Blood Pressure [Right Arm] 90/75 L Blood Pressure Mean [Right Arm] 80 Blood Pressure Position Supine Sitting Blood Pressure Position [Right Arm] Sitting 02 Sat by Pulse Oximetry 93 L 94 L 95 Oxygen Delivery Method Room Air Room Air Room Air 02/27/22 22:45 Temperature Temperature Source Pulse Rate 75 Pulse Rate [Left Radial] Respiratory Rate 16 Blood Pressure 96/55 L Blood Pressure [Right Arm] Blood Pressure Mean [Right Arm] Blood Pressure Position Standing Blood Pressure Position [Right Arm] 02 Sat by Pulse Oximetry 98 Oxygen Delivery Method Room Air - Lab Data Lab results reviewed: Yes: I reviewed the patient's lab results. Lab Results 02/27/22 22:12: Sodium 136, Potassium 4.2, Chloride 103, Carbon Dioxide 22, Anion Gap 15.2 H, BUN 38 H, Creatinine 1.20 H, Estimated Creat Clear 40, Estimated GFR 43 L, Est GFR ( Amer) 52 L, Glucose 162 H, Calcium 9.4, Total Bilirubin 1.9 H, AST 37 H, ALT 25, Alkaline Phosphatase 146 H, Troponin I < 0.01, Total Protein 7.1, Albumin 4.2, Globulin 2.9, Albumin/Globulin Ratio 1.4, TSH 1.74 02/27/22 22:12: Total Bilirubin 1.9 H, Direct Bilirubin 0.1, Conjugated Bilirubin 0.0, Indirect Bilirubin 1.8 H, Unconjugated Bilirubin 1.8 H, AST 36, ALT 25, Alkaline Phosphatase 152 H, Total Protein 7.1, Albumin 4.3 02/27/22 22:12: NT-Pro-B Natriuret Pep 883 H, TSH 1.79, Thyroxine (T4) 12.0 H 02/27/22 22:12: Amylase 50 02/27/22 22:12: WBC 8.2, RBC 4.61, Hgb 12.7, Hct 40.9, MCV 88.7, MCH 27.5, MCHC 31.1 L, RDW 18.3 H, Plt Count 245, MPV 8.9, Neut % (Auto) 73.8, Lymph % (Auto) 16.2, [place] % (Auto) 6.6, Eos % (Auto) 1.6, Baso % (Auto) 1.7, Neut # (Auto) 6.1, Lymph # (Auto) 1.3, [place] # (Auto) 0.5, Eos # (Auto) 0.1, Baso # (Auto) 0.1 02/27/22 22:12: Lipase 116 02/28/22 00:04: SARS-CoV-2 (PCR) Not detected, Influenza A Untype (PCR) Not detected, Influenza Type B (PCR) Not detected Result diagrams: 02/27/22 22:12 02/27/22 22:12 Orders (Tests/Meds): ED MEDICATIONS Generic Name Dose Route Start Last Admin Trade Name Freq PRN Reason Stop Dose Admin Sodium Chloride 1,000 mls @ 999 mls/hr 02/27/22 23:45 02/27/22 23:43 Sod Chlor 0.9% 1000ml Bag IV 02/28/22 00:45 999 mls/hr .Q1H1M ALBERTO Administration ORDERS Category Date Time Status Troponin I Q3H Lab 02/28/22 01:30 Ordered Troponin I Q3H Lab 02/28/22 04:30 Ordered UA [Urinalysis and Microscopic] Stat Lab 02/27/22 23:40 Ordered - Radiology Data #1 Image(s): Chest Image Reviewed: Yes I have reviewed radiologist's interpretation Preliminary Findings: Abnormal - CT Data CT Scan: Abdomen, Pelvis Time Received: 00:[address] Reviewed: Yes: I have viewed the radiologist's interpretation Preliminary Findings: Abnormal - ECG Data Tracing #1 Pacemaker function: normal pacer function - Physician
--- NOTE | 2022-02-27 23:40 | CT_ITS ---
PROCEDURE INFORMATION: Exam: CT Abdomen And Pelvis Without Contrast Exam date and time: 02/27/2022 11:47 PM Age: 86 years old Clinical indication: Abdominal pain TECHNIQUE: Imaging protocol: Computed tomography of the abdomen and pelvis without contrast. Radiation optimization: All CT scans at this facility use at least one of these dose optimization techniques: automated exposure control; mA and/or kV adjustment per patient size (includes targeted exams where dose is matched to clinical indication); or iterative reconstruction. COMPARISON: US ABDOMEN LIMITED 12/14/2020 9:15 AM FINDINGS: Pleural spaces: Small right pleural effusion. No left pleural effusion. Heart: Cardiomegaly Liver: Normal. No mass. Gallbladder and bile ducts: Cholecystectomy. Pancreas: Peripancreatic inflammatory changes. These findings could indicate acute pancreatitis. Spleen: Normal. No splenomegaly. Adrenal glands: Normal. No mass. Kidneys and ureters: Punctate non-obstructing right renal stone. No hydronephrosis. Stomach and bowel: Inflammation around the 1st and 2nd portion of the duodenum concerning for duodenitis. Appendix: Normal appendix. Intraperitoneal space: Small amount of free fluid in the pelvis. Arteries: Unremarkable. No abdominal aortic aneurysm. Lymph nodes: Unremarkable. No enlarged lymph nodes. Urinary bladder: Stones in the urinary bladder dependent portion. Reproductive: Unremarkable as visualized. Bones/joints: Unremarkable. No acute fracture. Soft tissues: Unremarkable. IMPRESSION: 1. Peripancreatic inflammatory changes concerning for acute pancreatitis. Correlate with amylase and lipase. 2. Inflammation involving the 1st and 2nd portion of the duodenum which could reflect duodenitis. 3. Punctate non-obstructing right renal stone. No hydronephrosis. 4. Cholecystectomy. 5. Normal appendix. 6. Small amount of free fluid. 7. Bladder stones.
[2022-02-27 23:43] LABS: Thyroid Stimulating Hormone 1.79 uIU/mL (0.465-4.68)
[2022-02-27 23:44] LABS: Basophils # 0.1 K/mm3 (0-0.2); Basophils % 1.7 % (0.1-2.0); Eosinophils # 0.1 K/mm3 (0.0-0.4); Eosinophils % 1.6 % (0.1-12.0); Hematocrit 40.9 % (37.0-47.0); Hemoglobin 12.7 g/dL (12.2-16.2); Lymphocytes # 1.3 K/mm3 (0.7-4.5); Lymphocytes % 16.2 % (10-50); Mean Corpuscular HGB Conc 31.1 g/dL (31.8-35.4); Mean Corpuscular Hemoglobin 27.5 pg (27.0-31.2); Mean Corpuscular Volume 88.7 fl (81-99); Mean Platelet Volume 8.9 fl (7.4-10.4); Monocytes # 0.5 K/mm3 (0.1-1.0); Monocytes % 6.6 % (1.7-9.3); Neutrophils # 6.1 K/mm3 (1.8-7.8); Neutrophils % 73.8 % (37.0-80.0); Platelet Count 245 K/mm3 (142-424); Red Blood Count 4.61 M/mm3 (4.20-5.40); Red Cell Distribution Width 18.3 % (11.5-17.5); White Blood Count 8.2 K/mm3 (4.8-10.8)
[2022-02-27 23:48] LABS: Amylase 50 U/L (30-110)
[2022-02-27 23:51] LABS: Lipase 116 U/L (23-300)
[2022-02-28] VITALS (18 sets, daily range): BP systolic 84–123; BP diastolic 41–73; PULSE 65–104; RESP 14–22; TEMP 35.7–37.2; O2SAT 89–96; BMI 25.7
[2022-02-28 00:10] LABS: Coronavirus 19, PCR Not Detected (NotDetected); Influenza A, PCR Not Detected (NotDetected); Influenza B, PCR Not Detected (NotDetected)
--- NOTE | 2022-02-28 00:20 | PC.NURSE ---
paged dr doty
--- NOTE | 2022-02-28 00:20 | PC.NURSE ---
ER speaking with dr doty
--- NOTE | 2022-02-28 00:30 | PC.NURSE ---
HOUSE NOTIFIED OF ADMISSION
--- NOTE | 2022-02-28 01:30 | PC.NURSE ---
sofia [employer] warehouse specialist called report at [phone] to Yulia HERNANDEZ
[2022-02-28 01:59] LABS: Troponin I < 0.01 ng/ml (0.00-0.034)
--- NOTE | 2022-02-28 02:15 | PC.NURSE ---
PT ARRIVED TO FLOOR VIA STRETCHER FROM ED W/STAFF @ [id number]
[2022-02-28 05:34] LABS: Basophils # 0.1 K/mm3 (0-0.2); Basophils % 1.8 % (0.1-2.0); Eosinophils % 0.5 % (0.1-12.0); Hematocrit 35.5 % (37.0-47.0); Lymphocytes # 0.9 K/mm3 (0.7-4.5); Lymphocytes % 13.4 % (10-50); Mean Corpuscular HGB Conc 31.8 g/dL (31.8-35.4); Mean Corpuscular Hemoglobin 27.2 pg (27.0-31.2); Mean Corpuscular Volume 85.7 fl (81-99); Mean Platelet Volume 9.2 fl (7.4-10.4); Monocytes # 0.5 K/mm3 (0.1-1.0); Monocytes % 6.6 % (1.7-9.3); Neutrophils # 5.5 K/mm3 (1.8-7.8); Neutrophils % 77.7 % (37.0-80.0); Platelet Count 205 K/mm3 (142-424); Red Blood Count 4.14 M/mm3 (4.20-5.40); Red Cell Distribution Width 18.2 % (11.5-17.5)
[2022-02-28 05:44] LABS: Chloride 107 mmol/L (98-107); Hemoglobin 11.4 g/dL (12.2-16.2); Potassium 4.1 mmoL/L (3.5-5.1); Sodium 137 mmol/L (136-145)
[2022-02-28 05:46] LABS: Blood Urea Nitrogen 43 mg/dl (7-17); Creatinine Clearance Estimated 37 mL/min (50-200); Estimated Glomerular Filt Rate 39 ml/min (>60); GFR (African American) 47 ML/MIN (>60)
[2022-02-28 05:47] LABS: Alanine Aminotransferase 18 U/L (12-78); Albumin Level 3.4 g/dl (3.5-5.0); Albumin/Globulin Ratio 1.4 (1.1-1.8); Alkaline Phosphatase 128 U/L (38-126); Anion Gap 12.1 mEq/L (5-15); Aspartate Amino Transferase 32 U/L (14-36); Bilirubin,Total 1.9 mg/dl (0.2-1.3); Calcium 7.8 mg/dl (8.4-10.2); Carbon Dioxide 22 mmol/L (22.0-30.0); Globulin 2.5 g/dL (1.3-3.2); Glucose 124 mg/dl (74-100); Lipase 42 U/L (23-300); Total Protein,Serum 5.9 g/dl (6.3-8.2)
[2022-02-28 06:14] LABS: Troponin I < 0.01 ng/ml (0.00-0.034)
--- NOTE | 2022-02-28 07:17 | P.CONPHA_ITS ---
[facility] Pharmacy VTE Monitoring - Patient Demographics Admission date: 02/28/22 Report Date: 02/28/22 Time: 07:17 Allergies/Adverse Reactions: Patient Allergies ciprofloxacin [From CIPRO] Allergy (Mild, Verified 02/24/22 11:47) I-RASH Height: 1.68 m Weight: 72.575 kg Patient Problems: Current Active Problems Duodenitis (Acute) OZZIE (acute kidney injury) (Acute) Hypothyroidism (Acute) - VTE Risk Labs: VTE Related Lab Results Hgb 11.4 g/dL (12.2-16.2) L D 02/28/22 05:25 Hct 35.5 % (37.0-47.0) L 02/28/22 05:25 Plt Count 205 K/mm3 (142-424) 02/28/22 05:25 BUN 43 mg/dl (7-17) H 02/28/22 05:25 Creatinine 1.30 mg/dl (0.52-1.04) H 02/28/22 05:25 Estimated Creat Clear 37 mL/min (50-200) 02/28/22 05:25 Was VTE Risk Assessment Performed: Yes VTE Score: 3 VTE Risk Level: Low Risk Clinical Trial Participant: No - Prophylaxis VTE Prophylaxis Ordered?: Yes Types of VTE Prophylaxis: TEDS Knee High
--- NOTE | 2022-02-28 07:25 | HMH.PHAINT ---
home medication list verified using list from outpatient pharmacy and cardiology office
--- NOTE | 2022-02-28 07:26 | HMH.HP ---
*Admission Date: 02/28/22 *Chief complaint: Weakness, OZZIE, nausea *History of present illness: Ms. bradford is a pleasant 86-year-old female with history of A. fib, combined CHF, hypertension, chronic anticoagulation. Has recently been seen by both her PCP and cardiology with adjustments to her regimen for heart failure and A. fib. Presented to the ER yesterday due to worsening pain in her neck and back. Got worse yesterday and she felt more dizzy and fatigued. Denies man emesis but was having bloating and discomfort in her upper abdomen accompanied by nausea. No diarrhea. On presentation to the ER found to be hypotensive. Work-up positive for duodenitis on imaging. Concern for UTI so UA was ordered but not obtained until this morning. No leukocytosis. Electrolytes acceptable/within normal limits. Slight OZZIE noted as well on labs with increase from baseline of 0.7 to 1.2. Of note, has recently been increased on her metoprolol over the past month from 100 twice daily to 200 twice daily with the addition of verapamil at the beginning of this week. Tolerating Lasix for peripheral edema with drastic improvement in her lower extremity swelling. Heart rate better controlled at this time in the 70s. Goal between 60 and 80 per cardiology. Pleasant on exam this morning. States she feels little bit better. Tolerating IV fluids. No shortness of breath. On room air. [facility] History I have reviewed the patient's past medical history: Yes Medical History: Reports:: Anxiety, Atrial Fibrillation, Congestive Heart Failure, Hyperlipidemia, Hypertension, Internal Pacemaker, Transient Ischemic Attacks (TIA), Ulcer Denies:: Cancer, Diabetes Mellitus Type 1, Diabetes Mellitus Type 2, Lung Disease, MRSA, Seizures *Have you ever received a pneumonia vaccine?: No *Have you received a flu vaccine this season?: No Other Medical History: Reports: Arthritis, Cataracts, Hypothyroidism, Thyroid Disease Laterality Cases: Right: Cataract, Bilateral: Total Knee Replacement Other Surgeries: Yes: Cardiac Surgery, Cholecystectomy, Colonoscopy, EGD, Hysterectomy-Total, Pacemaker, Tubal Ligation Amputation: No Fractures: No - *Social History Last grade of school completed: High school graduate Smoking Status: Never smoker Alcohol Intake: never Alcohol Intake Frequency:: holidays/special occasions only Substance Use Type: denies use *Occupational Status:: retired Housing: house Household Members: none *Travel in the last 8 weeks: None - Psychiatric History Pschychiatric History:: Reports:: Anxiety Family Hx:: Cancer, Diabetes, Stroke Review of Systems - Review of Systems Review of systems:: pertinent systems reviewed and negative unless documented below (14 point review of systems performed, pertinent positives and negatives as per HPI) - *Neurologic Denies seizure-like activity Meds Home Medications Medication Instructions Recorded Confirmed Type Aspirin [Aspirin 81mg EC Tab] 81 mg PO DAILY 08/12/18 02/27/22 History clonazepam 0.5 mg tablet 0.5 mg PO TIDP PRN 12/12/19 02/27/22 History lisinopril 10 mg tablet 5 mg PO DAILY 12/12/19 02/28/22 History rosuvastatin 10 mg tablet 10 mg PO DAILY 12/12/19 02/27/22 History Rivaroxaban [Xarelto 20mg Tablet*] 20 mg PO PM 12/15/21 02/28/22 History Metoprolol Succinate [Metoprolol 200 mg PO BID 02/27/22 02/28/22 History Succinate 200mg Tablet*] Verapamil HCl [Verapamil ER] 180 mg PO DAILY 02/27/22 02/28/22 History Furosemide [Furosemide 40MG tAB*] 40 mg PO DAILY 02/28/22 02/28/22 History Levothyroxine Sodium 200 mcg PO DAILY 02/28/22 02/28/22 History [Levothyroxine 200mcg (0.2mg) Tab] Allergies Allergy/AdvReac Type Severity Reaction Status Date / Time ciprofloxacin [From CIPRO] Allergy Mild I-RASH Verified 02/24/22 11:47 Exam Vital signs and Labs for Last 24 Hours: Temp Pulse Resp BP Pulse Ox 96.3 F L 65 18 93/41 L 93 L 02/28/22 03:05 02/28/22 04:00 02/28/22 03:05 02/28/22 03:05
--- NOTE | 2022-02-28 11:10 | HMH.PTEV ---
Physical Therapy Evaluation Rehab PT IP Evaluation Start: 02/28/22 08:33 Freq: ONCE Status: Active Protocol: Document 02/28/22 11:07 [email or web address] (Rec: 02/28/22 11:10 PHORNE [id number]) Subjective/History History History 86 yowf adm to [facility] with OZZIE and ABD pain. She reports she lives alone, 1 step to enter, uses a rolator for ambulation at baseline. Subjective Subjective Pt reports feeling less pain this am, tender to B LE in gaitor area, but this is normal for her. Rehab PT IP Eval Objective Appearance Patient Behavior Appropriate Patient Orientation Person,Place,Time Difficulty following instructions none Speech Pattern Clear Ambulation Patient Able to Ambulate Yes Ambulation Observation IP General Gait Pattern Observation Shuffling Step Ambulation Distance (feet) 30 Ambulation Assistive Device Rolling Walker Ambulation Ability Supervision/Stand by Balance Ability to Arise Able, w/o using arms Sitting Balance Steady, safe Standing Balance Steady, wide stance Dynamic Sitting Balance Ability Good Dynamic Standing Balance Ability Fair Transfers Bed Transfer Ability Supervision/Stand by Chair Transfer Ability Supervision/Stand by Sit to Stand Bed Transfer Ability Supervision/Stand by Sit to Stand Chair Transfer Ability Supervision/Stand by ROM All Extremities PT ROM Status WFL MMT All Extremities PT MMT WFL Rehab PT IP prob,goals,plan Problems Date of Evaluation: 02/28/22 Discharge Plan PT Discharge Plan Pt is appropriate to return home once medically stable, would benefit from home health therapy after D/C. G -code Required No Eval Complexity Eval Charge Codes 75073 - Moderate Complexity PHYSICIAN CERTIFICATION: I certify the specified therapy services for Vanessa Chávez are required, authorized, and reviewed every 30 days.
--- NOTE | 2022-02-28 11:56 | SW/DCPLANNER ---
I spoke with this patient this afternoon regarding discharge plans. Patient stated that she lives at home alone with assistance from her family. Patient is not interested in any services at this time including home health. Patient stated that she should be ready for discharge tomorrow. I will continue to follow up with this patient if she has any needs/questions.
[2022-02-28 12:58] LABS: Microscopic, Urine URINE MICROSCOPIC (MICROSCOPIC)
[2022-02-28 13:03] LABS: Appearance,Urine CLOUDY (Clear); Bilirubin,Urine Negative (Negative); Blood, Urine 1+ (Negative); Color,Urine AMBER (Yellow); Glucose,Urine (UA) Negative (Negative); Ketones,Urine Negative (Negative); Leukocyte Esterase,Urine 1+ (Negative); Nitrate,Urine Negative (Negative); PH,Urine 5.5 (5.0-8.5); Protein,Urine 2+ (Negative); Specific Gravity, Urine >= 1.030 (1.005-1.030); Urobilinogen,Urine 0.2 EU/dl (0.2)
[2022-02-28 13:35] LABS: Bacteria,Urine 1+ /lpf; WBC,Urine 20-50 #/hpf (0-3)
--- NOTE | 2022-02-28 15:51 | PC.NURSE ---
PT IS RESTING IN BED. NO COMPLAINTS OF DISCOMFORT. ALERT AND ORIENTED X4. PT TOLERATED SITTING UP IN THE CHAIR FOR SEVERAL HOURS THIS SHIFT. AMBULATES TO THE BATHROOM WITH 1 ASSIST. EATING AND DRINKING FAIR. PACED ON TELEMETRY. LUNG SOUNDS CLEAR. ABDOMEN SOFT WITH MILD EPIGASTRIC TENDERNESS. NORMAL BOWEL SOUNDS. WILL CONTINUE TO MONITOR.
[2022-02-28 18:11] LABS: Chloride 104 mmol/L (98-107); Potassium 4.2 mmoL/L (3.5-5.1); Sodium 138 mmol/L (136-145)
[2022-02-28 18:14] LABS: Anion Gap 13.2 mEq/L (5-15); Blood Urea Nitrogen 40 mg/dl (7-17); Calcium 8.1 mg/dl (8.4-10.2); Carbon Dioxide 25 mmol/L (22.0-30.0); Creatinine Clearance Estimated 34 mL/min (50-200); Estimated Glomerular Filt Rate 36 ml/min (>60); GFR (African American) 43 ML/MIN (>60); Glucose 129 mg/dl (74-100)
[2022-03-01] VITALS: BP 125/83; PULSE 110; PULSE 94; RESP 20; TEMP 36.8; O2SAT 91
[2022-03-01 04:00] VITALS: BP 123/87; PULSE 100; PULSE 110; RESP 20; TEMP 36.6; O2SAT 89
[2022-03-01 05:00] VITALS: BMI 25.6
[2022-03-01 06:33] LABS: Basophils # 0.1 K/mm3 (0-0.2); Basophils % 1.8 % (0.1-2.0); Eosinophils # 0.2 K/mm3 (0.0-0.4); Eosinophils % 2.8 % (0.1-12.0); Hematocrit 36.7 % (37.0-47.0); Hemoglobin 11.6 g/dL (12.2-16.2); Lymphocytes # 1.4 K/mm3 (0.7-4.5); Lymphocytes % 19.5 % (10-50); Mean Corpuscular HGB Conc 31.6 g/dL (31.8-35.4); Mean Corpuscular Hemoglobin 27.9 pg (27.0-31.2); Mean Corpuscular Volume 88.1 fl (81-99); Mean Platelet Volume 8.6 fl (7.4-10.4); Monocytes # 0.6 K/mm3 (0.1-1.0); Monocytes % 7.9 % (1.7-9.3); Neutrophils # 4.9 K/mm3 (1.8-7.8); Platelet Count 222 K/mm3 (142-424); Red Blood Count 4.16 M/mm3 (4.20-5.40); Red Cell Distribution Width 18.6 % (11.5-17.5); White Blood Count 7.2 K/mm3 (4.8-10.8)
[2022-03-01 06:41] LABS: Chloride 107 mmol/L (98-107); Sodium 138 mmol/L (136-145)
[2022-03-01 06:42] LABS: Potassium 4.3 mmoL/L (3.5-5.1)
[2022-03-01 06:44] LABS: Alanine Aminotransferase 19 U/L (12-78); Albumin Level 3.6 g/dl (3.5-5.0); Albumin/Globulin Ratio 1.4 (1.1-1.8); Alkaline Phosphatase 150 U/L (38-126); Anion Gap 12.3 mEq/L (5-15); Aspartate Amino Transferase 27 U/L (14-36); Bilirubin,Total 1.6 mg/dl (0.2-1.3); Blood Urea Nitrogen 33 mg/dl (7-17); Calcium 8.2 mg/dl (8.4-10.2); Carbon Dioxide 23 mmol/L (22.0-30.0); Creatinine Clearance Estimated 48 mL/min (50-200); Estimated Glomerular Filt Rate 60 ml/min (>60); GFR (African American) 72 ML/MIN (>60); Globulin 2.6 g/dL (1.3-3.2); Glucose 88 mg/dl (74-100); Magnesium 2.3 mg/dl (1.6-2.3); Total Protein,Serum 6.2 g/dl (6.3-8.2)
[2022-03-01 08:00] VITALS: BP 133/83; PULSE 98; RESP 16; TEMP 37.3; O2SAT 93
--- NOTE | 2022-03-01 08:37 | HMH.DCSUM ---
General - General Admission date:: 02/28/22 Discharge date: 03/01/22 HPI HPI: Ms. bradford is a pleasant 86-year-old female with history of A. fib, combined CHF, hypertension, chronic anticoagulation. Has recently been seen by both her PCP and cardiology with adjustments to her regimen for heart failure and A. fib. Presented to the ER yesterday due to worsening pain in her neck and back. Got worse yesterday and she felt more dizzy and fatigued. Denies man emesis but was having bloating and discomfort in her upper abdomen accompanied by nausea. No diarrhea. On presentation to the ER found to be hypotensive. Work-up positive for duodenitis on imaging. Concern for UTI so UA was ordered but not obtained until this morning. No leukocytosis. Electrolytes acceptable/within normal limits. Slight OZZIE noted as well on labs with increase from baseline of 0.7 to 1.2. Of note, has recently been increased on her metoprolol over the past month from 100 twice daily to 200 twice daily with the addition of verapamil at the beginning of this week. Tolerating Lasix for peripheral edema with drastic improvement in her lower extremity swelling. Heart rate better controlled at this time in the 70s. Goal between 60 and 80 per cardiology. Pleasant on exam this morning. States she feels little bit better. Tolerating IV fluids. No shortness of breath. On room air. Hospital Course Hospital Course: Patient was admitted. Lasix was held, lisinopril was held and verapamil was held. She was given gentle IV fluids overnight. Did have evidence of leukocytes on urine testing and ceftriaxone was started for UTI. This morning she feels great. OZZIE has resolved. Blood pressure has normalized and she wishes to go home. Plan will be to discharge home. Omnicef for 5 days for possible UTI-adjust therapy based on culture once it is returned. I will ask her to hold Lasix unless she becomes edematous. We will also hold lisinopril and cut verapamil dose down to 120. We will follow her in the office closely. Objective Vital signs: Temp Pulse Resp BP Pulse Ox 99.2 F 98 H 16 133/83 93 L 03/01/22 08:00 03/01/22 08:00 03/01/22 08:00 03/01/22 08:00 03/01/22 08:00 no acute distress - *Routine HEENT Exam Head: Present: normocephalic Eye: Present: EOMI, PERRL ENT: Present: mucous membranes moist - *Routine Neck Exam Present: supple - *Routine Respiratory Exam Present: CTA bilaterally - *Routine Cardiovascular Exam Present: RRR - *Routine Abdominal Exam Present: soft, normoactive bowel sounds. Absent: tenderness - *Routine Extremities Exam Absent: cyanosis, clubbing, edema - *Routine Skin Exam Present: warm. Absent: rash - Detailed Eye Exam Eyelids: Bilateral normal inspection Results Labs on day of discharge: Labs from last 24 hours 03/01/22 03/01/22 02/28/22 06:07 06:07 17:57 WBC 7.2 RBC 4.16 L Hgb 11.6 L Hct 36.7 L MCV 88.1 MCH 27.9 MCHC 31.6 L RDW 18.6 H Plt Count 222 MPV 8.6 Neut % (Auto) 68.0 Lymph % (Auto) 19.5 [place] % (Auto) 7.9 Eos % (Auto) 2.8 Baso % (Auto) 1.8 Neut # (Auto) 4.9 Lymph # (Auto) 1.4 [place] # (Auto) 0.6 Eos # (Auto) 0.2 Baso # (Auto) 0.1 Sodium 138 138 Potassium 4.3 4.2 Chloride 107 104 Carbon Dioxide 23 25 Anion Gap 12.3 13.2 BUN 33 H 40 H Creatinine 0.90 D 1.40 H Estimated Creat Clear 48 34 Estimated GFR 60 36 L Est GFR ( Amer) 72 D 43 L Glucose 88 D 129 H Calcium 8.2 L 8.1 L Magnesium 2.3 Total Bilirubin 1.6 H AST 27 ALT 19 Alkaline Phosphatase 150 H Total Protein 6.2 L Albumin 3.6 Globulin 2.6 Albumin/Globulin Ratio 1.4 Urine Color Urine Appearance Urine pH Ur Specific [place] Urine Protein Urine Glucose (UA) Urine Ketones Urine Blood Urine Nitrate Urine Bilirubin Urine Urobilinogen
--- NOTE | 2022-03-01 09:14 | HMH.PHAINT ---
DISCHARGE MEDICATION COUNSELING PROVIDED. DISCUSSED STOPPING THE LISINOPRIL AND FUROSEMIDE AND THE CHANGE OF THE VERAPAMIL FROM 180 MG TO 120 MG. ALSO DISCUSSED THE SHORT COURSE CEFDINIR FOR HER UTI. DISCUSSED TAKING TWICE DAILY AND TO TAKE WITH FOOD, MAY CAUSE UPSET STOMACH. PATIENT UNDERSTANDS AND ENDORSED NO FURTHER QUESTIONS AT THIS TIME.
--- NOTE | 2022-03-03 15:28 | CARE MANAGER ---
Addendum entered by Jessica Rosa RN 03/03/22 15:33: Patient returned phone call. She reports that she is monitoring her blood pressure and is going to take the results with her to her follow up MD appointment. She states she has been slightly nauseous but nothing too bad. She denies any other questions or concerns at this time. Original Note: Attempted to contact patient and left voicemail message. MARY Gutierrez
== END 2022-03-01 12:04 | disposition home or self-care (01) ==
LOC: ER 22:03 → 2ND 02-28 00:41
PROVIDERS: Admitting Provider Internal Medicine Adolescent Medicine; Emergency Provider Emergency Medicine; PCP Internal Medicine Adolescent Medicine; Visit Provider Internal Medicine Adolescent Medicine
DX: N17.9 Acute kidney failure, unspecified (principal); K29.80 Duodenitis without bleeding; I50.42 Chronic combined systolic (congestive) and diastolic (congestive) heart failure; E03.9 Hypothyroidism, unspecified; I48.20 Chronic atrial fibrillation, unspecified; N39.0 Urinary tract infection, site not specified; Z79.01 Long term (current) use of anticoagulants; Z79.899 Other long term (current) drug therapy; Z20.822 Contact with and (suspected) exposure to COVID-19
CPT/HCPCS: G0378; 36415; 71046; 74176; 80048; 80053; 80076; 81001; 82150; 83690; 83735; 83880; 84436; 84443; 84484; 85025; 87086; 87088; 87186; 93005; 96365; 96375; 97162; 99285; C9803; J0696; J2405; U0003; U0005

== ENCOUNTER 2022-05-30 14:59 | Emergency (ER) | payer MEDICARE, SELFPAY ==
[2022-05-30 15:00] VITALS: BP 168/88; PULSE 105; RESP 18; TEMP 36.7; O2SAT 97; BMI 27.4
--- NOTE | 2022-05-30 15:03 | ED_ITS ---
ED Disposition Referrals: Nj Kuo MD [Primary Care Provider] - Attestation: On , the high probability of a clinically significant, sudden or life threatening deterioration of the following system(s) required my full and direct attention, intervention and personal management. The time I documented below is in addition to time spent performing reported procedures but includes the following listed in this critical care notation. Extremity Problem HPI - General Stated complaint: open wound Time Seen by Provider: 05/30/22 15:03 - Related Data Home Medications Medication Instructions Recorded Confirmed Aspirin [Aspirin 81mg EC Tab] 81 mg PO DAILY 08/12/18 04/22/22 clonazepam 0.5 mg tablet 0.5 mg PO TIDP PRN 12/12/19 04/22/22 rosuvastatin 10 mg tablet 10 mg PO DAILY 12/12/19 04/22/22 Rivaroxaban [Xarelto 20mg Tablet*] 20 mg PO PM 12/15/21 04/22/22 Metoprolol Succinate [Metoprolol 200 mg PO BID 02/27/22 04/22/22 Succinate 200mg Tablet*] Levothyroxine Sodium 200 mcg PO DAILY 02/28/22 04/22/22 [Levothyroxine 200mcg (0.2mg) Tab] nitrofurantoin 100 mg PO BID cap 04/22/22 04/22/22 monohydrate/macrocrystals 100 mg capsule Previous Rx's Medication Instructions Recorded Verapamil HCl [Verapamil ER] 120 mg PO DAILY #30 cap 03/01/22 Allergies Allergy/AdvReac Type Severity Reaction Status Date / Time ciprofloxacin [From CIPRO] Allergy Mild I-RASH Verified 04/22/22 11:57 [facility] History - Hepatitis A Screen Attestation statement:: This patient has been screened for Hepatitis A risk factors. Medical History: Reports:: Anxiety, Atrial Fibrillation, Congestive Heart Failur e, Hyperlipidemia, Hypertension, Internal Pacemaker, Transient Ischemic Attacks (TIA), Ulcer Denies:: Cancer, Diabetes Mellitus Type 1, Diabetes Mellitus Type 2, Lung Disease, MRSA, Seizures Other Medical History: Reports: Arthritis, Cataracts, Hypothyroidism, Thyroid Disease Other Surgeries: Yes: Cardiac Surgery, Cholecystectomy, Colonoscopy, EGD, Hysterectomy-Total, Pacemaker, Tubal Ligation Amputation: No Fractures: No - Social History Smoking Status: Never smoker Alcohol Intake: never Alcohol Intake Frequency:: holidays/special occasions only Substance Use Type: denies use Occupational Status: retired Housing: house Household Members: none - Psychiatric History Pschychiatric History:: Reports:: Anxiety Family Hx:: Cancer, Diabetes, Stroke
--- NOTE | 2022-05-30 15:05 | PC.NURSE ---
[id number] ED MD AT BEDSIDE FOR EVALUATION
--- NOTE | 2022-05-30 15:09 | HMH.EDSKAF ---
ED Disposition Clinical Impression: Bleeding from open wound of chest wall Qualifiers: Encounter type: initial encounter Laterality: left Qualified Code(s): S21.102A - Unspecified open wound of left front wall of thorax without penetration into thoracic cavity, initial encounter Disposition: Home, Self-Care Condition on Discharge: Fair Instructions: DI for Wound Infection Additional Instructions: Continue taking all medications except for your blood thinner. Stop your blood thinner for the next 2 days. After 2 days you may start taking your blood thinner again. Return to the emergency department immediately if you feel worse in any way. Referrals: Nj Kuo MD [Primary Care Provider] - - Critical Care Critical Care Time: No Attestation: On , the high probability of a clinically significant, sudden or life threatening deterioration of the following system(s) required my full and direct attention, intervention and personal management. The time I documented below is in addition to time spent performing reported procedures but includes the following listed in this critical care notation. Medical Decision Making - Leon Inquiry Pt receiving controlled substance: No Vital Signs: 05/30/22 15:00 Temperature 98.0 F Temperature Source Oral Pulse Rate [Brachial] 105 H Respiratory Rate 18 Blood Pressure [Right Arm] 168/88 H Blood Pressure Mean [Right Arm] 114 Blood Pressure Source [Right Arm] Automatic Cuff Blood Pressure Position [Right Arm] Sitting 02 Sat by Pulse Oximetry 97 Oxygen Delivery Method Room Air Orders (Tests/Meds): ORDERS Category Date Time Status ECG Request by /Shimon Stat Y 05/30/22 15:15 Ordered - ECG Data Tracing #1 I reviewed this ECG and interpreted as documented below: Patient is EKG was performed at 1520 p.m. It shows an irregular rhythm with intermittent ventricular pacing at 91 bpm. There is some artifact present. Given the patient's history of atrial fibrillation I suspect that this represents A. fib. The rate is well controlled. No evidence of ischemia. Medical Decision Narrative: The patient presents to the emergency department complaining of bleeding from a chest wound status post incision and drainage at her primary care physician's office. Is on anticoagulation for chronic A. fib. An ECG was obtained. It shows an irregular rhythm most likely A. fib. However, given the fact that the patient is having bleeding complications from her Xarelto, I will advise the patient to stop the Xarelto for the next 2 days while a compression dressing will be applied to the wound. The likelihood of developing a blood clot from atrial fibrillation in those 2 days is low. Skin/Abscess/FB HPI - General Stated complaint: open wound Time Seen by Provider: 05/30/22 15:03 - History of Present Illness HPI narrative: The patient presents to the emergency department complaining of continuous bleeding of an abscess that was drained in her physician's office yesterday. The patient is currently on Xarelto for atrial fibrillation. Ultras are pending. She is currently on a cephalosporin. Has no other complaints. - Related Data Home Medications Medication Instructions Recorded Confirmed Aspirin [Aspirin 81mg EC Tab] 81 mg PO DAILY 08/12/18 04/22/22 clonazepam 0.5 mg tablet 0.5 mg PO TIDP PRN 12/12/19 04/22/22 rosuvastatin 10 mg tablet 10 mg PO DAILY 12/12/19 04/22/22 Rivaroxaban [Xarelto 20mg Tablet*] 20 mg PO PM 12/15/21 04/22/22 Metoprolol Succinate [Metoprolol 200 mg PO BID 02/27/22 04/22/22 Succinate 200mg Tablet*] Levothyroxine Sodium 200 mcg PO DAILY 02/28/22 04/22/22 [Levothyroxine 200mcg (0.2mg) Tab] nitrofurantoin 100 mg PO BID cap 04/22/22 04/22/22 monohydrate/macrocrystals 100 mg capsule Previous Rx's Medication Instructions Recorded Verapamil HCl [Verapamil ER] 120 mg PO DAILY #30 cap 03/01/22 Allergies Allergy/AdvReac Type Severity
--- NOTE | 2022-05-30 15:20 | ECG_ITS ---
APPROVED REPORT Exam: Resting ECG HR:91 bpm ECG Measurements Heart Rate 91 AXES QRSd 94 QRS 115 QT 355 T -78 QTc 403 Conclusion ELECTRONIC VENTRICULAR PACEMAKER ABNORMAL ECG UNCONFIRMED REPORT Electronically signed by : Demetrio Mendosa MD 06/01/2022 16:28:57
--- NOTE | 2022-05-30 15:28 | PC.NURSE ---
ER at going over POC with pt and family member
--- NOTE | 2022-05-30 15:34 | PC.NURSE ---
PRESSURE DRESSING APPLIED TO CYST . WITH EDUCATION GIVEN TO DAUGHTER AND PT
[2022-05-30 15:39] VITALS: BP 160/80; PULSE 91; RESP 20; TEMP 36.7; O2SAT 97
== END 2022-05-30 15:40 | disposition home or self-care (01) ==
PROVIDERS: Emergency Provider Emergency Medicine; PCP Family Medicine
DX: S21.102A Unspecified open wound of left front wall of thorax without penetration into thoracic cavity, initial encounter (principal); Z98.890 Other specified postprocedural states; Z79.01 Long term (current) use of anticoagulants; I48.91 Unspecified atrial fibrillation; Z79.82 Long term (current) use of aspirin; Z79.899 Other long term (current) drug therapy; Z88.1 Allergy status to other antibiotic agents; I11.0 Hypertensive heart disease with heart failure; I50.9 Heart failure, unspecified; E78.5 Hyperlipidemia, unspecified; E03.9 Hypothyroidism, unspecified; Z86.73 Personal history of transient ischemic attack (TIA), and cerebral infarction without residual deficits
CPT/HCPCS: 93005; 99283

== ENCOUNTER → 2022-06-30 12:24 | Outpatient (CLI) | payer MEDICARE, SELFPAY | PROVIDERS: PCP Family Medicine; Visit Provider Nurse Practitioner | DX: Z01.812 Encounter for preprocedural laboratory examination (principal); Z20.822 Contact with and (suspected) exposure to COVID-19; I48.20 Chronic atrial fibrillation, unspecified | CPT/HCPCS: C9803; U0003; U0005 ==

== ENCOUNTER 2022-07-02 09:36 | Day surgery (SDC) | payer MEDICARE, SELFPAY ==
[2022-07-02] VITALS (10 sets, daily range): BP systolic 115–161; BP diastolic 70–116; PULSE 70–87; RESP 14–18; O2SAT 94–99; BMI 27.6
--- NOTE | 2022-07-02 | IR_ITS ---
APPROVED REPORT Patient Location: [facility] Observer: MARCELINO Johns RT (R) PROCEDURES Pocket Revision Removal of old Pacemaker Implant of Permanent Pacemaker INDICATION Normal Battery Depletion Informed consent was obtained prior to the procedure. COMPLICATIONS None Estimated Blood Loss: Less than 10 mls TECHNIQUE 1% lidocaine with epinephrine used to anesthetize the left anterior aspect of the chest. Scalpel was used to make the initial cutaneous incision and then used to dissect down to the existing pacemaker generator. The generator was removed from the existing pocket. Digital manipulation was required along with intermittent usage of scalpel in order to revise the pocket. The leads were removed from the old generator. The new generator was screwed to the existing leads and secured into place. Electronic interrogation proved acceptable thresholds and voltage within the lead. Antibiotics were used to flush the pocket and the pacemaker was secured using 3-0 silk into the newly revised pocket. Monocryl was used to close the subcutaneous tissue and then michael were placed on the cutaneous area in order to approximate the incision. Patient was transferred to the postop holding area in stable condition. INTERROGATION Explanted Generator Model number: Medtronic, ADDR01 Explanted Generator Serial number: [id number] Implanted Generator Model number: Catapooolt JOSE C ELIZALDE, L311 Implanted Generator Serial number: [id number] Atrial lead model number: CapSure Fix, 4076 Atrial lead serial number: [id number] P-wave: 0.7mV Impedence: 354 ohms Right Ventricular lead model number: CapSure SP, 4092 Right Ventricular lead serial number: [id number] R-wave: 15.0mV Impedence: 497 ohms Threshold: 0.5V@0.4ms Current: 1.0mA Pacing Parameters: Mode: DDDR Base/Max Track:60 ppm / 130 ppm No diaphragmatic stimulation at 10 volts. IMPRESSION Successful Pocket Revision Successful Removal of old Pacemaker Successful Implant of Permanent Pacemaker PLAN 1. Follow up office visit, post op wound care. Electronically signed by : Santino Miguel MD 07/02/2022 14:05:37
[2022-07-02 10:24] LABS: Basophils # 0.2 K/mm3 (0-0.2); Basophils % 2.3 % (0.1-2.0); Eosinophils # 0.2 K/mm3 (0.0-0.4); Eosinophils % 2.4 % (0.1-12.0); Hematocrit 41.9 % (37.0-47.0); Hemoglobin 12.8 g/dL (12.2-16.2); Lymphocytes # 1.1 K/mm3 (0.7-4.5); Lymphocytes % 16.6 % (10-50); Mean Corpuscular HGB Conc 30.6 g/dL (31.8-35.4); Mean Corpuscular Hemoglobin 29.4 pg (27.0-31.2); Mean Corpuscular Volume 96.2 fl (81-99); Mean Platelet Volume 8.4 fl (7.4-10.4); Monocytes # 0.5 K/mm3 (0.1-1.0); Monocytes % 7.5 % (1.7-9.3); Neutrophils # 4.9 K/mm3 (1.8-7.8); Neutrophils % 71.2 % (37.0-80.0); Platelet Count 235 K/mm3 (142-424); Red Blood Count 4.35 M/mm3 (4.20-5.40); Red Cell Distribution Width 16.2 % (11.5-17.5); White Blood Count 6.8 K/mm3 (4.8-10.8)
[2022-07-02 10:30] LABS: Blood Urea Nitrogen 15 mg/dl (7-17); Calcium 9.4 mg/dl (8.4-10.2); Carbon Dioxide 25 mmol/L (22.0-30.0); Chloride 106 mmol/L (98-107); Creatinine Clearance Estimated 50 mL/min (50-200); Estimated Glomerular Filt Rate 95 ml/min (>60); GFR (African American) 115 ML/MIN (>60); Glucose 102 mg/dl (74-100); Sodium 140 mmol/L (136-145)
== END 2022-07-02 16:01 | disposition home or self-care (01) ==
LOC: CATHLAB 09:38
PROVIDERS: PCP Family Medicine; Visit Provider Internal Medicine
DX: Z45.010 Encounter for checking and testing of cardiac pacemaker pulse generator [battery] (principal); I48.20 Chronic atrial fibrillation, unspecified; I11.0 Hypertensive heart disease with heart failure; E78.5 Hyperlipidemia, unspecified; I50.9 Heart failure, unspecified; E03.9 Hypothyroidism, unspecified
CPT/HCPCS: 33228; 80048; 85025; 99152; C1785

== ENCOUNTER → 2022-07-25 08:33 | Outpatient (CLI) | payer MEDICARE, SELFPAY ==
[2022-07-25 11:12] LABS: Anion Gap 11.8 mEq/L (5-15); Blood Urea Nitrogen 23 mg/dl (7-17); Carbon Dioxide 27 mmol/L (22.0-30.0); Chloride 107 mmol/L (98-107); Estimated Glomerular Filt Rate 80 ml/min (>60); GFR (African American) 96 ML/MIN (>60); Glucose 104 mg/dl (74-100); Potassium 3.8 mmoL/L (3.5-5.1); Sodium 142 mmol/L (136-145)
== END ==
PROVIDERS: PCP Internal Medicine Adolescent Medicine; Visit Provider Internal Medicine
DX: E78.2 Mixed hyperlipidemia (principal)
CPT/HCPCS: 36415; 80048

== ENCOUNTER → 2022-09-11 12:36 | Outpatient (CLI) | payer MEDICARE, SELFPAY ==
--- NOTE | 2022-09-11 12:49 | XR_ITS ---
FINAL REPORT CLINICAL HISTORY: UPPER ABD PAIN, FINDINGS: A single view of the abdomen was obtained. There is a nonobstructive bowel gas pattern. There are no abnormally dilated loops of small bowel. There is a moderate amount of retained stool. Postoperative changes are seen in the right upper quadrant. IMPRESSION: 1. Nonobstructive bowel gas pattern. 2. Moderate amount of retained stool. Reviewed, Interpreted and Dictated by Gerry Ospina III, MD Transcribed by Pedro Dinh Authenticated and [facility]
== END ==
PROVIDERS: PCP Internal Medicine Adolescent Medicine; Visit Provider Nurse Practitioner Family
DX: R06.01 Orthopnea (principal); R10.10 Upper abdominal pain, unspecified
CPT/HCPCS: 74018

== ENCOUNTER 2022-10-23 07:42 | Emergency (ER) | payer MEDICARE, SELFPAY ==
[2022-10-23 07:58] VITALS: BP 166/98; PULSE 97; RESP 20; TEMP 36.6; O2SAT 94; BMI 26.6
[2022-10-23 08:31] VITALS: BP 188/97; PULSE 73; RESP 18; O2SAT 95
[2022-10-23 08:35] VITALS: BP 159/91; PULSE 82; RESP 17; O2SAT 96
--- NOTE | 2022-10-23 08:49 | PC.NURSE ---
HIEN DE OLIVEIRA at
--- NOTE | 2022-10-23 08:57 | PC.NURSE ---
HIEN DE OLIVEIRA at bedside.
--- NOTE | 2022-10-23 09:10 | HMH.EDGENADL ---
Discharge Plan Disposition Patient Disposition: Home, Self-Care Condition: Good Chief Complaint: Wound/Laceration Prescriptions Prescriptions: No Action furosemide 40 mg tablet 40 mg PO DAILY clonazepam [Klonopin] 0.5 mg tablet 0.5 mg PO TIDP PRN (Reason: Anxiety) rosuvastatin [Crestor] 10 mg tablet 10 mg PO DAILY metoprolol succinate 200 mg tablet extended release 24 hr 200 mg PO BID Qty: 180 3RF rivaroxaban 20 MG tablet 20 mg PO PM aspirin 81 MG tablet,delayed release (DR/EC) 81 mg PO DAILY levothyroxine 200 MCG tablet 200 mcg PO DAILY verapamil 120 MG capsule,ext rel. pellets 24 hr 120 mg PO DAILY potassium chloride [Klor-Con M10] 10 mEq tablet,ER particles/crystals 10 meq PO DAILY Referrals Follow up/Referrals: Demetrio Mendosa MD [Primary Care Provider] - See instructions Activity Restrictions/Add. Instructions Additional Instructions/Restrictions: Clean the area gently with soap and water each day and reapply bandage as instructed by Dr. Lundy. Follow-up with Dr. Lundy as scheduled. Return to the emergency department if bleeding recurs and unable to be stopped with direct pressure. Clinical Impressions Clinical Impression: Postoperative bleeding from incision Instructions Patient Instructions: DI for Laceration Repair Discharge ED Provider: Hector Mo General Adult HPI General Chief complaint: Wound/Laceration Stated complaint: 10/21procedure on Rt leg, bleeding Time Seen by Provider: 10/23/22 08:43 Mode of Arrival: Wheelchair Source of Information: Patient Limitations: No Limitations Description of Symptoms (Recalled from ER Triage Doc. by RN): Patient reports she had a procedure done with Dr. Lundy on thursday and had a squamous cell removed on her right marques. Patient reports the sight started bleeding last night and hasnt stopped since. Dr. Lundy advised pt to come to the ED for tx. History of Present Illness HPI narrative: Patient states she had a dermatological procedure done by Dr. Lundy on Thursday, 2 days ago. 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 She says that the area began bleeding last night after she restarted her Xarelto. It has not stopped despite application of a pressure dressing. Dr. Lundy was contacted by the patient and she advised the patient to come the emergency department to have the bleeding controlled and has arranged follow-up appointment. Related Data Home Medications Medication Instructions Recorded Confirmed aspirin 81 mg tablet,delayed 81 mg PO DAILY Heart Health 08/12/18 10/23/22 release clonazepam 0.5 mg tablet (Klonopin) 0.5 mg PO TIDP PRN Anxiety 12/12/19 10/23/22 rosuvastatin 10 mg tablet (Crestor) 10 mg PO DAILY Cholesterol 12/12/19 10/23/22 rivaroxaban 20 mg tablet 20 mg PO PM Blood thinner 12/15/21 10/23/22 levothyroxine 200 mcg tablet 200 mcg PO DAILY hypothyroidism 02/28/22 10/23/22 furosemide 40 mg tablet 40 mg PO DAILY Fluid 07/09/22 10/23/22 potassium chloride 10 mEq 10 meq PO DAILY Supplement 10/23/22 10/23/22 tablet,extended release(part/cryst) (Klor-Con M) verapamil 120 mg 24 hr 120 mg PO DAILY BP 10/23/22 10/23/22 capsule,extended release Previous Rx's Medication Instructions Recorded metoprolol succinate 200 mg 200 mg PO BID Heart rhythm #180 09/22/22 tablet,extended release 24 hr tabs Allergies Allergy/AdvReac Type Severity Reaction Status Date / Time ciprofloxacin [From CIPRO] Allergy Mild I-RASH Verified 08/06/22 11:20 [facility] Disclaimer: The information contained in this section may have been updated after the patient was seen, as this information can be updated by other users. Medical History OZZIE (acute kidney injury) Bleeding from open wound of chest wall Combined congestive systolic and diastolic heart failure Congestive heart failure Duod
[2022-10-23 09:32] VITALS: BP 158/88; PULSE 74; RESP 20; TEMP 36.6; O2SAT 94
== END 2022-10-23 09:48 | disposition home or self-care (01) ==
PROVIDERS: Emergency Provider Emergency Medicine; PCP Internal Medicine Adolescent Medicine
DX: D69.9 Hemorrhagic condition, unspecified (principal); I50.40 Unspecified combined systolic (congestive) and diastolic (congestive) heart failure; N17.9 Acute kidney failure, unspecified; E78.5 Hyperlipidemia, unspecified; F41.9 Anxiety disorder, unspecified; Z79.01 Long term (current) use of anticoagulants; Z79.82 Long term (current) use of aspirin; Z79.899 Other long term (current) drug therapy; Z98.890 Other specified postprocedural states; Z95.0 Presence of cardiac pacemaker; Z87.440 Personal history of urinary (tract) infections; S81.811A Laceration without foreign body, right lower leg, initial encounter
CPT/HCPCS: 12001; 99283

== ENCOUNTER 2022-11-13 14:32 | Inpatient (IN) | payer MEDICARE, SELFPAY ==
[2022-11-13] VITALS (12 sets, daily range): BP systolic 113–165; BP diastolic 61–113; PULSE 66–72; RESP 18–20; TEMP 36.6; O2SAT 93–99; BMI 26.6
--- NOTE | 2022-11-13 15:03 | XR_ITS ---
FINAL REPORT CLINICAL HISTORY: SOB COMPARISON: February 2022 FINDINGS: SINGLE VIEW CHEST There is a left subclavian pacemaker. The heart size is enlarged. The mediastinum is within normal limits. There is pulmonary vascular congestion, worse. There are worsening pulmonary opacities. A moderate right pleural effusion is worse.. There is no evidence of pneumothorax. The bony thorax is intact. IMPRESSION: Worsening pulmonary opacities favoring edema over pneumonia. Moderate, worse right pleural effusion. Worsening pulmonary vascular congestion.. Reviewed, Interpreted and Dictated by Gerry Ospina III, MD Transcribed by Pedro Dinh Authenticated and [facility]
[2022-11-13 15:12] LABS: Basophils # 0.1 K/mm3 (0-0.2); Basophils % 1.5 % (0.1-2.0); Eosinophils # 0.1 K/mm3 (0.0-0.4); Eosinophils % 1.4 % (0.1-12.0); Lymphocytes # 1.2 K/mm3 (0.7-4.5); Lymphocytes % 13.9 % (10-50); Mean Corpuscular HGB Conc 30.7 g/dL (31.8-35.4); Mean Corpuscular Volume 91.2 fl (81-99); Mean Platelet Volume 8.8 fl (7.4-10.4); Monocytes # 0.7 K/mm3 (0.1-1.0); Monocytes % 8.6 % (1.7-9.3); Neutrophils # 6.3 K/mm3 (1.8-7.8); Neutrophils % 74.5 % (37.0-80.0); Platelet Count 269 K/mm3 (142-424); Red Blood Count 4.27 M/mm3 (4.20-5.40); Red Cell Distribution Width 16.6 % (11.5-17.5); White Blood Count 8.4 K/mm3 (4.8-10.8)
[2022-11-13 15:16] LABS: Chloride 102 mmol/L (98-107); Sodium 141 mmol/L (136-145)
[2022-11-13 15:18] LABS: Blood Urea Nitrogen 19 mg/dl (7-17); Creatinine Clearance Estimated 47 mL/min (50-200); Estimated Glomerular Filt Rate 80 ml/min (>60); GFR (African American) 96 ML/MIN (>60); Lactic Acid 1.3 mmol/L (0.7-2.1)
[2022-11-13 15:19] LABS: Alanine Aminotransferase 22 U/L (12-78); Albumin Level 4.4 g/dl (3.5-5.0); Albumin/Globulin Ratio 1.3 (1.1-1.8); Alkaline Phosphatase 183 U/L (38-126); Aspartate Amino Transferase 32 U/L (14-36); Bilirubin,Total 3.2 mg/dl (0.2-1.3); Calcium 9.2 mg/dl (8.4-10.2); Carbon Dioxide 28 mmol/L (22.0-30.0); Globulin 3.3 g/dL (1.3-3.2); Glucose 104 mg/dl (74-100); Total Protein,Serum 7.7 g/dl (6.3-8.2)
[2022-11-13 15:27] LABS: Coronavirus 19, PCR Not Detected (NotDetected); Influenza A, PCR Not Detected (NotDetected); Influenza B, PCR Not Detected (NotDetected)
[2022-11-13 15:32] LABS: Troponin I < 0.01 ng/ml (0.00-0.034)
--- NOTE | 2022-11-13 15:34 | HMH.EDGENADL ---
Discharge Plan Disposition Patient Disposition: Admitted as Observation Condition: Fair Prescriptions Prescriptions: No Action furosemide 40 mg tablet 40 mg PO DAILY clonazepam [Klonopin] 0.5 mg tablet 0.5 mg PO TIDP PRN (Reason: Anxiety) rosuvastatin [Crestor] 10 mg tablet 10 mg PO DAILY metoprolol succinate 200 mg tablet extended release 24 hr 200 mg PO BID Qty: 180 3RF rivaroxaban 20 MG tablet 20 mg PO PM digoxin 125 mcg (0.125 mg) tablet 125 mcg PO .M,T,W,Th, F aspirin 81 MG tablet,delayed release (DR/EC) 81 mg PO DAILY levothyroxine 200 MCG tablet 200 mcg PO DAILY verapamil 120 MG capsule,ext rel. pellets 24 hr 120 mg PO DAILY potassium chloride [Klor-Con M10] 10 mEq tablet,ER particles/crystals 10 meq PO DAILY Referrals Follow up/Referrals: Demetrio Mendosa MD [Primary Care Provider] - See instructions Clinical Impressions Clinical Impression: Congestive heart failure, Urinary tract infection Discharge ED Provider: Hector Mo General Adult HPI General Chief complaint: Shortness of Breath/Dyspnea Stated complaint: Physician Referral, possible blood clot in lung Time Seen by Provider: 11/13/22 15:25 Mode of Arrival: Wheelchair Source of Information: Patient Limitations: No Limitations Description of Symptoms (Recalled from ER Triage Doc. by RN): PT STATES SHE HAS HAD INCREASED SHORTNESS OF BREATH AND ABDOMINAL PAIN SINCE THURSDAY EVENING, STATES SHE HAS A DRY, HACKY COUGH THAT STARTED THIS AM, STATES SHE IS VERY BLOATED AND HAS HAD TROUBLE URINATING THAT STARTED THIS AM History of Present Illness HPI narrative: The patient is sent from the office of Dr. Mendosa. Patient states that she was seeing him because she has not felt well since Thursday 3 days ago. She has a sensation of fullness, distention, discomfort in her upper abdomen that sometimes goes to her right shoulder. Associated with difficulty breathing. She has tried some Mylanta, which gave her some loose stool, but did not relieve her symptoms. She denies fever or vomiting. Denies chest pain. She says that her pulse ox was low at Dr. Mendosa's office and he did not hear good air movement in her right lung and therefore sent her to the emergency department. The patient had a squamous cell cancer removed from her right marques about 3 weeks ago. She has some mild edema of her right leg associated with that, no other edema. She has had a prior hysterectomy, no other abdominal surgeries. Also has difficulty urinating and foul-smelling urine. Related Data Home Medications Medication Instructions Recorded Confirmed aspirin 81 mg tablet,delayed 81 mg PO DAILY Heart Health 08/12/18 11/13/22 release clonazepam 0.5 mg tablet (Klonopin) 0.5 mg PO TIDP PRN Anxiety 12/12/19 11/13/22 rosuvastatin 10 mg tablet (Crestor) 10 mg PO DAILY Cholesterol 12/12/19 11/13/22 rivaroxaban 20 mg tablet 20 mg PO PM Blood thinner 12/15/21 11/13/22 levothyroxine 200 mcg tablet 200 mcg PO DAILY hypothyroidism 02/28/22 11/13/22 furosemide 40 mg tablet 40 mg PO DAILY Fluid 07/09/22 11/13/22 potassium chloride 10 mEq 10 meq PO DAILY Supplement 10/23/22 11/13/22 tablet,extended release(part/cryst) (Klor-Con M) verapamil 120 mg 24 hr 120 mg PO DAILY BP 10/23/22 11/13/22 capsule,extended release digoxin 125 mcg (0.125 mg) tablet 125 mcg PO .M,T,W,Th, F . 11/13/22 11/13/22 Previous Rx's Medication Instructions Recorded metoprolol succinate 200 mg 200 mg PO BID Heart rhythm #180 09/22/22 tablet,extended release 24 hr tabs Allergies Allergy/AdvReac Type Severity Reaction Status Date / Time ciprofloxacin [From CIPRO] Allergy Mild I-RASH Verified 08/06/22 11:20 [facility] Disclaimer: The information contained in this section may have been updated after the patient was seen, as this information can be updated by other users. Medical History (Reviewed 11/04/22 @ 12:26 by Marianela Gallegos RN
--- NOTE | 2022-11-13 15:39 | CT_ITS ---
PROCEDURE INFORMATION: Exam: CT Abdomen And Pelvis With Contrast Exam date and time: 11/13/2022 4:00 PM Age: 87 years old Clinical indication: Abdominal pain; Generalized; Additional info: Abdo discomfort upper abdo into R shoulder TECHNIQUE: Imaging protocol: Computed tomography of the abdomen and pelvis with contrast. Radiation optimization: All CT scans at this facility use at least one of these dose optimization techniques: automated exposure control; mA and/or kV adjustment per patient size (includes targeted exams where dose is matched to clinical indication); or iterative reconstruction. Contrast material: ISOVUE; Contrast volume: 75 ml; Contrast route: IV; COMPARISON: CT ABDOMEN PELVIS WO CON 02/27/2022 11:47 PM FINDINGS: Liver: Normal. No mass. Gallbladder and bile ducts: Cholecystectomy. Mild biliary ectasia. Pancreas: Normal. No ductal dilation. Spleen: Normal. No splenomegaly. Adrenal glands: Normal. No mass. Kidneys and ureters: 1 cm left renal simple cyst. Tiny nonobstructive right renal calcification. Stomach and bowel: Moderate sigmoid diverticulosis. No bowel obstruction or abscess. Appendix: No evidence of appendicitis. Intraperitoneal space: Trace amount of ascites. Vasculature: Moderate atherosclerosis without aneurysm. Reflux of contrast into distended IVC and hepatic veins again evident. Lymph nodes: Unremarkable. No enlarged lymph nodes. Urinary bladder: Tiny stones dependently in the urinary bladder, largest 3 mm. Reproductive: Hysterectomy. Bones/joints: No acute fracture. Soft tissues: Unremarkable. Other findings: Chest findings in separate dedicated report. Pelvic floor prolapse. No other acute pathology seen. As above. IMPRESSION: 1. Trace amount of ascites. 2. Tiny stones dependently in the urinary bladder, largest 3 mm. 3. No bowel obstruction or abscess. 4. No other acute pathology seen. As above. COMMENTS: Consistent with the [employer]'s Incidental Findings Committee white paper (J Am Dereck Radiol 2018): Any incidental renal lesion less than 1 cm or classified as too small to characterize, or any incidental cystic renal lesion characterized as simple-appearing, is likely benign. No follow-up imaging is recommended for these lesions per consensus recommendations based on imaging criteria.
--- NOTE | 2022-11-13 15:39 | ECG_ITS ---
APPROVED REPORT Exam: Resting ECG HR:70 bpm ECG Measurements Heart Rate 70 AXES QRSd 172 QRS -87 QT 472 T 107 QTc 492 Conclusion ELECTRONIC VENTRICULAR PACEMAKER ABNORMAL RHYTHM ECG UNCONFIRMED REPORT Electronically signed by : Demetrio Mendosa MD 11/14/2022 08:50:08
--- NOTE | 2022-11-13 15:39 | CT_ITS ---
PROCEDURE INFORMATION: Exam: CTA Chest With Contrast Exam date and time: 11/13/2022 4:00 PM Age: 87 years old Clinical indication: Shortness of breath; Additional info: Hypoxia, R pleural effusion TECHNIQUE: Imaging protocol: Computed tomographic angiography of the chest with contrast. 3D rendering (Not supervised by radiologist): MIP and/or 3D reconstructed images were created by the technologist. Radiation optimization: All CT scans at this facility use at least one of these dose optimization techniques: automated exposure control; mA and/or kV adjustment per patient size (includes targeted exams where dose is matched to clinical indication); or iterative reconstruction. Contrast material: ISOVUE 370; Contrast volume: 75 ml; Contrast route: INTRAVENOUS (IV); COMPARISON: CR XR CHEST PORTABLE 11/13/2022 3:41 PM FINDINGS: Tubes, catheters and devices: Pacemaker. Pulmonary arteries: No pulmonary embolus. No dissection or aneurysm in the chest. Aorta: Unremarkable. No aortic aneurysm. No aortic dissection. Lungs: In addition there are focal patchy areas of dense as well as ground-glass consolidation in both lungs suggesting active inflammation or infection. The pattern is nonspecific regarding etiology. Pleural spaces: Moderate to large right pleural effusion with atelectasis. Heart: Limited valvular and coronary artery calcifications. Enlarged heart with right-sided predominance. Reflux of contrast into distended IVC and hepatic veins which can be seen with right heart dysfunction. Lymph nodes: Unremarkable. No enlarged lymph nodes. Bones/joints: Unremarkable. No acute fracture. Soft tissues: Unremarkable. IMPRESSION: 1. No pulmonary embolus. No dissection or aneurysm in the chest. 2. Enlarged heart with right-sided predominance. 3. Moderate to large right pleural effusion with atelectasis. 4. In addition there are focal patchy areas of dense as well as ground-glass consolidation in both lungs suggesting active inflammation or infection. The pattern is nonspecific regarding etiology. 5. Reflux of contrast into distended IVC and hepatic veins which can be seen with right heart dysfunction.
--- NOTE | 2022-11-13 15:47 | PC.NURSE ---
PT TRANSPORTED TO RADIOLOGY VIA STRETCHER.
[2022-11-13 15:59] LABS: NT Pro Brain Natriuretic Pep. 1010 pg/mL (0-450)
[2022-11-13 16:05] LABS: Lipase 95 U/L (23-300)
[2022-11-13 17:18] LABS: Microscopic, Urine URINE MICROSCOPIC (MICROSCOPIC)
--- NOTE | 2022-11-13 17:18 | PC.NURSE ---
pt up to restroom u/a sent to lab
[2022-11-13 17:32] LABS: Appearance,Urine SL CLOUDY (Clear); Bilirubin,Urine Negative (Negative); Blood, Urine TRACE-I (Negative); Color,Urine YELLOW (Yellow); Glucose,Urine (UA) Negative (Negative); Ketones,Urine Negative (Negative); Leukocyte Esterase,Urine 2+ (Negative); Nitrate,Urine POSITIVE (Negative); PH,Urine 7.5 (5.0-8.5); Protein,Urine TRACE (Negative)
--- NOTE | 2022-11-13 17:32 | PC.NURSE ---
LAB CALLED FOR 2ND TROP
--- NOTE | 2022-11-13 18:15 | PC.NURSE ---
DR JUAN DIEGO ARIZMENDI FOR DR MCFADDEN.
[2022-11-13 18:22] LABS: Bacteria,Urine 4+ /lpf; RBC,Urine Occasional #/hpf (0-3)
[2022-11-13 18:39] LABS: Troponin I < 0.01 ng/ml (0.00-0.034)
--- NOTE | 2022-11-13 21:10 | EXP.HP ---
History of Present Illness *Admission Date: 11/13/22 *Reason for visit:: SOA, Abdominal Distention, Chest Pain, Difficulty Urinating *History of present illness: Ms. Chávez is a 87-year-old female with a past medical history of Diastolic CHF, Atrial Fibrillation on Chronic Anticoagulation, Anxiety Disorder, Hypothyroidism and Hyperlipidemia. She presents to [facility] due to pain under right breast, abdominal distention, shortness of air x 4 days and difficulty urinating and dysuria x 1 day. Work-up in the ER showed an Elevated BNP at 1010, CTA of the chest showed a moderate to large right sided pleural effusion with atelectasis and focal patchy areas of dense ground glass consolidations. Urinalysis showed 2 plus leukoesterase, was positive for nitrates and showed 4 plus bacteria. The patient was admitted with initial impression: CHF exacerbation and UTI. In the ER she had cultures drawn, was given Rocephin and Lasix IV. [facility] Disclaimer: The information contained in this section may have been updated after the patient was seen, as this information can be updated by other users. Medical History (Updated 11/14/22 @ 12:24 by Buster Pérez MD) Acute on chronic diastolic (congestive) heart failure Acute respiratory failure with hypoxia OZZIE (acute kidney injury) Bleeding from open wound of chest wall Combined congestive systolic and diastolic heart failure Congestive heart failure Duodenitis Hyperlipidemia Pleural effusion on right Shortness of Breath SIRS (systemic inflammatory response syndrome) UTI (urinary tract infection) Surgical History Cardiac pacemaker in situ Hx of cholecystectomy Social History Smoking Status: Never smoker alcohol intake: never substance use type: denies use current occupational status: retired Travel in the last 8 weeks: None household members: none housing: house caffeine: No Review of Systems Review of Systems Review of systems:: pertinent systems reviewed and negative unless documented below Constitutional Constitutional: Reports fatigue Eyes Eyes: Reports system reviewed and no additional complaints, except as documented ENT Ears, Nose, Mouth, and Throat: Reports system reviewed and no additional complaints, except as documented *Cardiovascular Cardiovascular: Reports chest pain, Reports dyspnea and Reports edema *Respiratory Respiratory: Reports cough and Reports dyspnea *Gastrointestinal Gastrointestinal: Reports system reviewed and no additional complaints, except as documented *Genitourinary Genitourinary: Reports dysuria, Reports urinary hesitancy and Reports urinary urgency *Musculoskeletal Musculoskeletal: Reports system reviewed and no additional complaints, except as documented Integumentary/Breasts Skin/Breast: Reports system reviewed and no additional complaints, except as documented *Neurologic Neurologic: Reports system reviewed and no additional complaints, except as documented Psychiatric Psychiatric: Reports system reviewed and no additional complaints, except as documented Endocrine Endocrine: Reports fatigue Hematologic/Lymphatic Hematologic/Lymphatic: Reports system reviewed and no additional complaints, except as documented Allergic/Immunologic Allergic/Immunologic: Reports system reviewed and no additional complaints, except as documented Meds Home Medications and Allergies Home Medications Medication Instructions Recorded Confirmed Type aspirin 81 mg tablet,delayed 81 mg PO DAILY Heart Health 08/12/18 11/14/22 History release clonazepam 0.5 mg tablet (Klonopin) 0.5 mg PO TIDP PRN Anxiety 12/12/19 11/14/22 History rosuvastatin 10 mg tablet (Crestor) 10 mg PO DAILY Cholesterol 12/12/19 11/14/22 History rivaroxaban 20 mg tablet 20 mg PO QPMWITHMEAL Blood thinner 12/15/21 11/14/22 History levothyroxine 200 mcg table
--- NOTE | 2022-11-13 22:18 | PC.NURSE ---
Pt provided with snacks. Pt also up to bathroom multiple times with assistance.
[2022-11-13 22:48] LABS: Troponin I < 0.01 ng/ml (0.00-0.034)
--- NOTE | 2022-11-13 23:06 | PC.NURSE ---
Pt ambulatory to bathroom at this time.
[2022-11-14] VITALS (10 sets, daily range): BP systolic 116–154; BP diastolic 48–89; PULSE 66–82; RESP 14–22; TEMP 36.7–37.2; O2SAT 92–96; BMI 25.7
--- NOTE | 2022-11-14 00:46 | PC.NURSE ---
Pt has been boarding in ER this shift. [facility] notified that there will be a bed available now for this pt once EVS has cleaned it. [facility] will notify when bed assignment ready
--- NOTE | 2022-11-14 01:02 | PC.NURSE ---
pt assisted to BR, 300ml urine output. Pt also updated on POC and bed assignment will be given soon.
--- NOTE | 2022-11-14 02:33 | PC.NURSE ---
gave report to Rosa eRyes RN
--- NOTE | 2022-11-14 03:43 | PC.NURSE ---
pt arrived to floor via wheelchair @ 0329.
--- NOTE | 2022-11-14 04:19 | PC.NURSE ---
PT PASSWORD - RIO
--- NOTE | 2022-11-14 09:52 | EXP.PULM.CON ---
History of Present Illness History of present illness: Ms. Chávez is a 87-year-old female no significant smoking history, no prior respiratory complaints presented to the hospital for respiratory distress needing new oxygen requirement and pulmonary was called for further evaluation for new oxygen requirements and pleural effusion [facility] Disclaimer: The information contained in this section may have been updated after the patient was seen, as this information can be updated by other users. Medical History (Updated 11/14/22 @ 12:24 by Buster Pérez MD) Acute on chronic diastolic (congestive) heart failure Acute respiratory failure with hypoxia OZZIE (acute kidney injury) Bleeding from open wound of chest wall Combined congestive systolic and diastolic heart failure Congestive heart failure Duodenitis Hyperlipidemia Pleural effusion on right Shortness of Breath SIRS (systemic inflammatory response syndrome) UTI (urinary tract infection) Surgical History Cardiac pacemaker in situ Hx of cholecystectomy Social History Smoking Status: Never smoker alcohol intake: never substance use type: denies use current occupational status: retired Travel in the last 8 weeks: None household members: none housing: house caffeine: No Review of Systems Review of Systems Review of systems:: pertinent systems reviewed and negative unless documented below Constitutional Constitutional: Denies headache(s) and Denies weakness Eyes Eyes: Reports system reviewed and no additional complaints, except as documented ENT Ears, Nose, Mouth, and Throat: Denies headache(s) *Cardiovascular Cardiovascular: Reports system reviewed and no additional complaints, except as documented, Reports chest pain, Reports dyspnea, Reports dyspnea on exertion, Denies leg edema and Reports orthopnea *Respiratory Respiratory: Reports system reviewed and no additional complaints, except as documented, Reports chest congestion, Reports cough, Reports dyspnea, Reports dyspnea on exertion, Denies excessive phlegm production, Denies hemoptysis and Denies pain on inspiration *Gastrointestinal Gastrointestinal: Reports system reviewed and no additional complaints, except as documented and Reports as per HPI (Abdominal distention) *Genitourinary Genitourinary: Reports system reviewed and no additional complaints, except as documented *Musculoskeletal Musculoskeletal: Denies numbness Integumentary/Breasts Skin/Breast: Reports system reviewed and no additional complaints, except as documented *Neurologic Neurologic: Reports system reviewed and no additional complaints, except as documented, Denies headache(s), Denies numbness and Denies weakness Psychiatric Psychiatric: Reports system reviewed and no additional complaints, except as documented Endocrine Endocrine: Reports system reviewed and no additional complaints, except as documented Hematologic/Lymphatic Hematologic/Lymphatic: Reports system reviewed and no additional complaints, except as documented Allergic/Immunologic Allergic/Immunologic: Reports system reviewed and no additional complaints, except as documented Pulmonology Exam Inpatient Vital signs and Labs for Last 24 Hours: Temp Pulse Resp BP Pulse Ox 98.0 F 74 18 137/76 94 L 11/14/22 04:00 11/14/22 04:00 11/14/22 04:00 11/14/22 04:00 11/14/22 04:00 Laboratory Results - last 24 hr 11/13/22 14:56: WBC 8.4, RBC 4.27, Hgb 12.0 L, Hct 39.0, MCV 91.2, MCH 28.0, MCHC 30.7 L, RDW 16.6, Plt Count 269, MPV 8.8, Neut % (Auto) 74.5, Lymph % (Auto) 13.9, Crenshaw % (Auto) 8.6, Eos % (Auto) 1.4, Baso % (Auto) 1.5, Neut # (Auto) 6.3, Lymph # (Auto) 1.2, Crenshaw # (Auto) 0.7, Eos # (Auto) 0.1, Baso # (Auto) 0.1 11/13/22 14:56: Sodium 141, Potassium 4.0, Chloride 102, Carbon Dioxide 28, Anion Gap 15.0, BUN 19 H, Creatinine 0.70, Estimated Creat Clear 47, Estim
--- NOTE | 2022-11-14 12:11 | EXP.CARD.CON ---
History of Present Illness History of Present Illness Consult date: 11/14/22 Requesting physician: Maximino Naqvi Consult reason: shortness of breath Chief complaint: SOA, abd distension History of present illness: This is an 87-year-old white female who presented to the emergency department with complaints of shortness of breath, abdominal distention and pain underneath her right breast that is started approximately 4 days prior to admission. She was also having difficulty urinating. The patient states that for the last 4 days her shortness of breath progressively worsened. It did get severe. She denies any lower extremity edema. She did have a pain underneath the right side of her breast associated with the shortness of breath. She denied any fever, chills, nausea, vomiting, diarrhea. Her shortness of breath is associated with orthopnea. While in the emergency department the patient was found to have a moderate to large right-sided pleural effusion with atelectasis and patchy groundglass consolidations. The patient also has a UTI. The patient was subsequently admitted for an acute exacerbation of her diastolic congestive heart failure and UTI. This morning she states that after getting IV Lasix her shortness of breath has significantly improved. She denies any chest pain or pressure. She denies any fever, chills, nausea, vomiting, diarrhea, PND or orthopnea. [facility] Disclaimer: The information contained in this section may have been updated after the patient was seen, as this information can be updated by other users. Medical History (Updated 11/14/22 @ 12:18 by Edna Holly APRN) Acute on chronic diastolic (congestive) heart failure OZZIE (acute kidney injury) Bleeding from open wound of chest wall Combined congestive systolic and diastolic heart failure Congestive heart failure Duodenitis Hyperlipidemia Shortness of Breath SIRS (systemic inflammatory response syndrome) UTI (urinary tract infection) Surgical History Cardiac pacemaker in situ Hx of cholecystectomy Social History Smoking Status: Never smoker alcohol intake: never substance use type: denies use current occupational status: retired Travel in the last 8 weeks: None household members: none housing: house caffeine: No Review of Systems Review of Systems Review of systems:: pertinent systems reviewed and negative unless documented below Constitutional Constitutional: Reports system reviewed and no additional complaints, except as documented, Denies headache(s), Reports lethargy and Denies weakness Eyes Eyes: Reports system reviewed and no additional complaints, except as documented ENT Ears, Nose, Mouth, and Throat: Reports system reviewed and no additional complaints, except as documented and Denies headache(s) *Cardiovascular Cardiovascular: Reports system reviewed and no additional complaints, except as documented, Reports chest pain, Reports dyspnea, Reports dyspnea on exertion, Denies leg edema and Reports orthopnea *Respiratory Respiratory: Reports system reviewed and no additional complaints, except as documented, Reports dyspnea and Reports dyspnea on exertion *Gastrointestinal Gastrointestinal: Reports system reviewed and no additional complaints, except as documented and Reports as per HPI (Abdominal distention) *Genitourinary Genitourinary: Reports system reviewed and no additional complaints, except as documented *Musculoskeletal Musculoskeletal: Reports system reviewed and no additional complaints, except as documented and Denies numbness Integumentary/Breasts Skin/Breast: Reports system reviewed and no additional complaints, except as documented *Neurologic Neurologic: Reports system reviewed and no additional complaints, except as documented, Denies headache(s), Denies numbness and Denies weakness Psychiatric Psychiatric: Reports sys
--- NOTE | 2022-11-14 19:44 | EXP.ACUTE.PN ---
Subjective *Date: 11/14/22 *Time: 19:44 Interval history: Improvement in breathing. Significant improvement in swelling. Patient overall feels better. Still weak however. Family not comfortable with her going home yet, still has oxygen requirement. Denies nausea, vomiting, chest pain, headache. Medical Exam Vital signs and Labs for Last 24 Hours: Vital Signs Temp Pulse Pulse Resp BP BP Pulse Ox 11/14/22 12:00 98.3 F 82 20 149/62 H 92 L 11/14/22 08:00 98.4 F 70 22 154/63 H 94 L 11/14/22 04:00 98.0 F 74 18 137/76 94 L 11/14/22 03:27 98.9 F 70 14 137/65 11/14/22 01:01 72 149/70 H 93 L 11/14/22 00:00 66 144/89 H 96 11/13/22 23:00 70 129/69 96 11/13/22 22:01 71 113/61 96 11/13/22 20:01 70 142/75 H 93 L Intake and Output 11/14/22 11/14/22 11/14/22 07:59 15:59 23:59 Intake Total 240 / 240 Output Total 0 / 501 501 / 501 Balance 0 / -261 -501 / -261 240 / -261 Intake: Intake, Oral Amount 240 / 240 Output: Output, Urine Amount 0 / 501 501 / 501 Other: Number of Unmeasured Voids 1 1 Number of Bowel Movements 1 Weight 70.08 kg Patient Weight 11/14/22 23:59 Weight 70.08 kg Laboratory Results - last 24 hr 11/13/22 21:59: Troponin I < 0.01 I & O for Labs for Last 24 Hours: Intake & Output 11/11/22 11/12/22 11/13/22 11/14/22 23:59 23:59 23:59 23:59 Intake Total 100 / 100 240 / 240 Output Total 1300 / 1300 501 / 501 Balance -1200 / -1200 -261 / -261 Weight 72.575 kg 70.08 kg Microbiology Reports for the Last 24 Hours: Microbiology 11/13/22 17:10 Urine,Clean Catch Urine Culture - Preliminary Constitutional: Present no acute distress and average body habitus Head: Present atraumatic and normocephalic Neck: Present normal inspection Respiratory: Present crackles (In bases) and normal respiratory effort; Absent rhonchi or wheezes Cardiac: Absent No Murmur Comment:: Irregularly irregular GI: Present soft and normal bowel sounds; Absent distention or tenderness Extremities: Present normal inspection and full ROM; Absent edema Skin: Present intact; Absent erythema Neuro: Present Grossly Intact, alert, awake, oriented x 3 and moves all extremities Assessment and Plan *Assessment and plan (1) CHF exacerbation: Status: Acute Category: Medical Code(s): I50.9 - Heart failure, unspecified (2) Pleural effusion: Status: Acute Category: Medical Code(s): J90 - Pleural effusion, not elsewhere classified (3) Ascites: Status: Acute Category: Medical Code(s): R18.8 - Other ascites (4) Atrial fibrillation: Status: Acute Category: Medical Code(s): I48.91 - Unspecified atrial fibrillation (5) UTI (urinary tract infection): Status: Acute Category: Medical Code(s): N39.0 - Urinary tract infection, site not specified (6) Hypothyroidism: Status: Acute Category: Medical Code(s): E03.9 - Hypothyroidism, unspecified (7) Hypertension: Status: Acute Category: Medical Code(s): I10 - Essential (primary) hypertension Plan 87-year-old female with past medical history of Diastolic CHF, Atrial Fibrillation on Chronic Anticoagulation, HTN, Hyperlipidemia, history of recurrent UTI's presents with 4 day history of shortness of air, right sided chest pain, abdominal distention and a 1 day history of dysuria and feeling of incomplete bladder emptying found to right sided pleural effusions, ascites and UTI CHF exacerbation Volume overload Pleural Effusion Hypertension - Patient with history of Diastolic CHF -Cardiology and pulmonology consulted, appreciate their recommendations. -Responded well to diuresis, -1.2L over the past 24 hours. -Continue Lasix 40 mg twice daily -Improving oxygen requirement, 2 L nasal cannula this afternoon. -Pulm to follow pleural effusion in the outpatie
--- NOTE | 2022-11-14 20:11 | PC.NURSE ---
Pt is A/Ox4. She has been on 2L NC. She was 88% RA when I did a RA sat on pt. She has gotten up to the BSC several times to use the RR. She has tolerated her diet well. No complaints or needs at this time.
--- NOTE | 2022-11-14 21:04 | CA_ITS ---
APPROVED REPORT EXAM: Comprehensive 2D, Doppler, and color-flow Echocardiogram Securities Attorney: Tracey Neely CRT Ht: 5 ft 5 in Wt: 160lbs BSA: 1.80 BP: 159/64 mmHg Indications: Congestive Heart Failure, Shortness of Breath, Hyperlipidemia, Hypertension/HDD, pleural effusion, afib, pacer 2D Dimensions LVOT 1.63 cm (M/F) 1.5-2.5 LA Volume 99.50 mL LA Volume Index 54.10 mL/m2 (M/F) 16-34 M-Mode Dimensions RVDd 3.81 cm (0.9-2.6) LA Diam 5.25 cm (1.9-4.0) LVDd 4.17 cm (3.5-5.7) Ao Diam 2.90 cm (2.0-3.7) LVDs 3.41 cm (3.5-5.7) IVSd 1.23 cm (0.6-1.1) PWd 0.83 cm (0.6-1.1) EF (Teich) 38.20% FS 18.20% EDV (Teich) 77.30 mL TAPSE 1.74 (<1.7) ESV (Teich) 47.80 mL LV Diastology E Decel Time 190.00 (160-240 msec) E/A Ratio 3.57 MED E' 6.90 (< 7 cm/sec) MED A' 5.20 cm/s E'/MED E' Ratio 16.77 (>14) LAT E' 10.80 (<10 cm/sec) LAT A' 7.00 cm/s E/LAT E' Ratio 10.71 (>14) Aortic Valve AO Peak GR. 12.30 mmHg Mitral Valve MV E Max Javed. 116.00 (40-130 cm/s) MV A Velocity 32.00 (40-130 cm/s) E/A Ratio 3.57 MV Decel. Time 190.00 (160-240 ms) MV PHT 56.00 ms Pulmonary Valve PV Peak Velocity 110.00 (50-150 cm/s) Tricuspid Valve TR P. Velocity 428.00 cm/s RAP Estimate 10.00 mmHg RVSP 83.20 mmHg Left Ventricle Left atrium is moderately enlarged, left ventricle is normal size mild concentric left ventricular hypertrophy, estimated ejection fraction 55% with no regional wall motion abnormality, diastolic parameters are inconclusive. Right Ventricle Right atrium and right ventricle are moderately enlarged, contractility of the right ventricle is normal, there is pacemaker leads in the right atrium and right ventricle. Aortic Valve Aortic valve is thickened and calcified without aortic stenosis or aortic insufficiency. Mitral Valve Mitral valve is grossly normal, there is mild mitral regurgitation. Tricuspid Valve Tricuspid valve is grossly normal, there is moderate to severe tricuspid regurgitation, calculated right ventricular systolic pressure 56 mmHg. Pulmonic Valve Pulmonic valve is poorly visualized. Great Vessels Aortic root is normal size. Inferior vena cava is dilated without significant inspiratory collapse. Pericardium No significant pericardial effusion noted. Conclusion 1. Biatrial enlargement, normal left ventricular size, mild concentric left ventricular hypertrophy, estimated ejection fraction 55% with no regional wall motion abnormality, diastolic parameters are inconclusive. 2. Moderately enlarged right ventricle with normal contractility. 3. Mild mitral and moderate to severe tricuspid regurgitation, calculated right ventricular systolic pressure is 56 mmHg. 4. No significant pericardial effusion noted. 5. Inferior vena cava is mildly dilated without significant inspiratory collapse. Electronically signed by : Prince Cardenas MD 11/14/2022 16:10:21
[2022-11-15] VITALS: BP 120/58; PULSE 65; RESP 18; TEMP 36.5; O2SAT 96
[2022-11-15 04:00] VITALS: BP 119/62; PULSE 70; RESP 16; TEMP 36.7; O2SAT 94; BMI 26.2
--- NOTE | 2022-11-15 06:00 | XR_ITS ---
PROCEDURE INFORMATION: Exam: XR Chest Exam date and time: 11/15/2022 5:57 AM Age: 87 years old Clinical indication: Dyspnea; Additional info: Effusion TECHNIQUE: Imaging protocol: Radiologic exam of the chest. Views: 1 view. COMPARISON: CR XR CHEST PORTABLE 11/13/2022 3:41 PM FINDINGS: Tubes, catheters and devices: Atrioventricular pacemaker. Lungs: Emphysematous change, interstitial disease, and asymmetric right-sided airspace disease. Pleural spaces: Small right pleural effusion. Heart/Mediastinum: Cardiac silhouette upper limits of normal size. Vasculature: Calcification of the thoracic aorta. Diaphragm: Asymmetric elevation of the right hemidiaphragm. Bones/joints: Degenerative change. IMPRESSION: 1. Emphysematous change, interstitial disease, and asymmetric right-sided airspace disease. 2. Additional findings as described above.
--- NOTE | 2022-11-15 06:21 | PC.NURSE ---
PATIENT IS A/O X 4. PLEASANT AND COOPERATIVE. SOA ON MOVEMENT. 02 AT 2LNC. CRACKLES NOTED IN THE LEFT LUNG. OCCASSIONAL DRY COUGH NOTED. HAS ULCERATION ON ANTERIOR ASPECT OF RIGHT SMITH WHERE SHE SAYS THE DOCTOR REMOVED A CANCEROUS GROWTH. ULCER IS CRATING AND MOVING ESTIMATOR, NO DRAINAGE.
--- NOTE | 2022-11-15 07:29 | EXP.DC.SUM ---
General Admission date:: 11/14/22 Discharge date: 11/15/22 HPI HPI HPI: Ms. Chávez is a 87-year-old female with a past medical history of Diastolic CHF, Atrial Fibrillation on Chronic Anticoagulation, Anxiety Disorder, Hypothyroidism and Hyperlipidemia. She presents to [facility] due to pain under right breast, abdominal distention, shortness of air x 4 days and difficulty urinating and dysuria x 1 day. Work-up in the ER showed an Elevated BNP at 1010, CTA of the chest showed a moderate to large right sided pleural effusion with atelectasis and focal patchy areas of dense ground glass consolidations. Urinalysis showed 2 plus leukoesterase, was positive for nitrates and showed 4 plus bacteria. The patient was admitted with initial impression: CHF exacerbation and UTI. In the ER she had cultures drawn, was given Rocephin and Lasix IV. Hospital Course Hospital Course Hospital Course: 87-year-old female with past medical history of Diastolic CHF, Atrial Fibrillation on Chronic Anticoagulation, HTN, Hyperlipidemia, history of recurrent UTI's presents with 4 day history of shortness of air, right sided chest pain, abdominal distention and a 1 day history of dysuria and feeling of incomplete bladder emptying found to right sided pleural effusions, ascites and UTI CHF exacerbation Volume overload Pleural Effusion Hypertension Atrial fibrillation - Patient with history of Diastolic CHF. Presented with worsening shortness of breath and abdominal distention as above. Cardiology and pulmonology consulted. Patient diuresed during hospitalization with good response. Negative over 3 L during hospitalization. Plan to continue Lasix 40 mg twice daily at discharge. Continue to have oxygen requirement with room air saturation of 86% on day of discharge. Found to have significant pleural effusion in right hemithorax on presentation. Likely secondary to volume overload. No plan to perform thoracentesis at this time. We will plan to have close follow-up with pulmonology in a week with repeat imaging to evaluate for improvement or need to proceed with drainage of effusion. Initiated on empiric azithromycin, will complete 5 days of antibiotics. Resume home Xarelto. Echo obtained with preserved ejection fraction. Continued home medications including metoprolol and verapamil for A. fib/CHF. UTI -Grossly abnormal UA. Urine culture still pending at time of discharge. Given history of multidrug-resistant E. coli, initiated on Invanz. ReVia sensitivities also sensitive to Macrobid. As patient is relatively asymptomatic, will de-escalate to Macrobid and complete empiric course. Continue to follow cultures. Hypothyroidism: Continue Levothyroxine Anxiety Disorder: Continue Klonopin Exam Data for Last 24 hours Vital signs and Labs for Last 24 Hours: Temp Pulse Resp BP Pulse Ox 98.0 F 70 16 119/62 94 L 11/15/22 04:00 11/15/22 04:00 11/15/22 04:00 11/15/22 04:00 11/15/22 04:00 I & O for Last 24 hours: Intake & Output 11/12/22 11/13/22 11/14/22 11/15/22 23:59 23:59 23:59 23:59 Intake Total 100 / 100 240 / 240 300 / 300 Output Total 1300 / 1300 1601 / 2001 400 / 400 Balance -1200 / -1200 -1361 / -1761 -100 / -100 Weight 72.575 kg 70.08 kg 71.305 kg Microbiology Reports for the Last 24 Hours: Microbiology 11/13/22 17:10 Urine,Clean Catch Urine Culture - Preliminary Constitutional Constitutional: no acute distress *Routine HEENT Exam Head: Present normocephalic Eye: Present EOMI and PERRL ENT: Present mucous membranes moist *Routine Neck Exam Neck: Present supple; Absent lymphadenopathy *Routine Respiratory Exam Respiratory: Present crackles (Faint in right lung field, diminished in right lower lung field) and normal respiratory effort; Absent accessory muscle use, rhonchi or wheezes *Routine Cardiovascular Exam Cardiovascular: Present RRR *Routine Abdominal Exam Abdominal: Present soft
[2022-11-15 07:49] VITALS: O2SAT 86
--- NOTE | 2022-11-15 07:49 | PC.NURSE ---
pt 86% on RA
[2022-11-15 08:00] VITALS: BP 108/49; PULSE 70; RESP 18; TEMP 36.8; O2SAT 86; O2SAT 90
--- NOTE | 2022-11-15 08:24 | PC.NURSE ---
spoke with MD regarding pt hypotension. will hold verapamil for one hour and then recheck bp. if okay will administer
[2022-11-15 08:35] LABS: Basophils # 0.1 K/mm3 (0-0.2); Basophils % 1.5 % (0.1-2.0); Eosinophils # 0.2 K/mm3 (0.0-0.4); Eosinophils % 2.7 % (0.1-12.0); Hematocrit 35.9 % (37.0-47.0); Hemoglobin 11.2 g/dL (12.2-16.2); Lymphocytes # 1.3 K/mm3 (0.7-4.5); Lymphocytes % 18.4 % (10-50); Mean Corpuscular HGB Conc 31.2 g/dL (31.8-35.4); Mean Corpuscular Hemoglobin 27.7 pg (27.0-31.2); Mean Corpuscular Volume 88.9 fl (81-99); Mean Platelet Volume 7.9 fl (7.4-10.4); Monocytes # 0.5 K/mm3 (0.1-1.0); Monocytes % 7.5 % (1.7-9.3); Neutrophils # 4.9 K/mm3 (1.8-7.8); Neutrophils % 69.7 % (37.0-80.0); Platelet Count 320 K/mm3 (142-424); Red Blood Count 4.04 M/mm3 (4.20-5.40); Red Cell Distribution Width 16.7 % (11.5-17.5); White Blood Count 7.1 K/mm3 (4.8-10.8)
[2022-11-15 08:39] LABS: Chloride 100 mmol/L (98-107); Potassium 3.4 mmoL/L (3.5-5.1); Sodium 142 mmol/L (136-145)
[2022-11-15 08:42] LABS: Anion Gap 13.4 mEq/L (5-15); Blood Urea Nitrogen 26 mg/dl (7-17); Calcium 8.8 mg/dl (8.4-10.2); Carbon Dioxide 32 mmol/L (22.0-30.0); Creatinine Clearance Estimated 46 mL/min (50-200); Estimated Glomerular Filt Rate 68 ml/min (>60); GFR (African American) 82 ML/MIN (>60); Glucose 146 mg/dl (74-100)
[2022-11-15 10:18] VITALS: BP 113/55; PULSE 77
--- NOTE | 2022-11-15 14:03 | PC.NURSE ---
pt has been discahrged form the floor. took all belongigns with her and voiced understanding of all discahrge education and follow up appts. o2 in use @ 2lnc. saline lock discontinued. meds brought up by clinic
--- NOTE | 2022-11-17 13:19 | CARE MANAGER ---
Contacted patient related to hospital discharge. She states she is doing well and denies any questions or concerns. Patient is aware of the need to contact Dr. Mendosa's office when they open tomorrow to schedule an appointment. Made her aware of pulmonology visit on the and to come early enough to get CXR beforehand. Appt is at 1pm. MARY Gutierrez
== END 2022-11-15 14:06 | disposition home or self-care (01) | DRG 291 ==
LOC: ER 18:20 → 2ND 11-14 02:25
PROVIDERS: Nurse Practitioner Family; Admitting Provider Internal Medicine Adolescent Medicine; Emergency Provider Emergency Medicine; PCP Internal Medicine Adolescent Medicine; Visit Provider Internal Medicine Adolescent Medicine
DX: I11.0 Hypertensive heart disease with heart failure; I50.33 Acute on chronic diastolic (congestive) heart failure; J96.01 Acute respiratory failure with hypoxia; N39.0 Urinary tract infection, site not specified; R18.8 Other ascites; I48.91 Unspecified atrial fibrillation; E03.9 Hypothyroidism, unspecified; Z85.828 Personal history of other malignant neoplasm of skin; Z95.0 Presence of cardiac pacemaker; F41.9 Anxiety disorder, unspecified; E78.5 Hyperlipidemia, unspecified; Z79.01 Long term (current) use of anticoagulants
CPT/HCPCS: 36415; 71045; 71275; 74177; 80048; 80053; 80162; 81001; 83605; 83690; 83880; 84484; 85025; 87040; 87086; 87088; 87186; 93005; 93306; 99285; C9803; J0456; J0696; J1335; Q9967; U0003; U0005

== ENCOUNTER → 2022-11-20 12:36 | Outpatient (CLI) | payer MEDICARE, SELFPAY ==
--- NOTE | 2022-11-20 12:42 | XR_ITS ---
FINAL REPORT CLINICAL HISTORY: pleural effusion COMPARISON: 11/15/2022 FINDINGS: 2 views of the chest were obtained. The heart size is normal. There is improved right perihilar infiltrate. There is chronic elevation of the right diaphragm. A small right pleural effusion is present. A left pacemaker is present. IMPRESSION: Resolved pneumonia and/or edema with chronic changes. Reviewed, Interpreted and Dictated by Zhane Jhaveri MD Transcribed by Virgen Roper Authenticated and [facility]
== END ==
PROVIDERS: PCP Internal Medicine Adolescent Medicine; Visit Provider Internal Medicine Pulmonary Disease
DX: J90 Pleural effusion, not elsewhere classified (principal)
CPT/HCPCS: 71046

== ENCOUNTER → 2022-12-01 11:52 | Outpatient (CLI) | payer MEDICARE, SELFPAY ==
[2022-12-01 12:13] LABS: Microscopic, Urine URINE MICROSCOPIC (MICROSCOPIC)
[2022-12-01 12:29] LABS: Appearance,Urine CLEAR (Clear); Bilirubin,Urine Negative (Negative); Blood, Urine Negative (Negative); Color,Urine YELLOW (Yellow); Glucose,Urine (UA) Negative (Negative); Ketones,Urine Negative (Negative); Leukocyte Esterase,Urine Negative (Negative); Nitrate,Urine Negative (Negative); PH,Urine 5.5 (5.0-8.5); Protein,Urine Negative (Negative); Specific Gravity, Urine 1.025 (1.005-1.030)
[2022-12-01 12:43] LABS: Bacteria,Urine Trace /lpf; Squamous Epithelial Cell,Urine Occasional #/hpf (0-5)
[2022-12-01 13:01] LABS: Chloride 104 mmol/L (98-107); Potassium 3.8 mmoL/L (3.5-5.1); Sodium 142 mmol/L (136-145)
[2022-12-01 13:03] LABS: Blood Urea Nitrogen 32 mg/dl (7-17); Estimated Glomerular Filt Rate 68 ml/min (>60); GFR (African American) 82 ML/MIN (>60)
[2022-12-01 13:04] LABS: Alanine Aminotransferase 20 U/L (12-78); Albumin Level 4.3 g/dl (3.5-5.0); Albumin/Globulin Ratio 1.3 (1.1-1.8); Alkaline Phosphatase 172 U/L (38-126); Anion Gap 14.8 mEq/L (5-15); Aspartate Amino Transferase 31 U/L (14-36); Bilirubin,Total 2.7 mg/dl (0.2-1.3); Calcium 9.1 mg/dl (8.4-10.2); Carbon Dioxide 27 mmol/L (22.0-30.0); Globulin 3.2 g/dL (1.3-3.2); Glucose 112 mg/dl (74-100); Total Protein,Serum 7.5 g/dl (6.3-8.2)
== END ==
PROVIDERS: Internal Medicine Pulmonary Disease; PCP Internal Medicine Adolescent Medicine; Visit Provider Internal Medicine
DX: I50.33 Acute on chronic diastolic (congestive) heart failure; R06.02 Shortness of breath; Z95.0 Presence of cardiac pacemaker; I11.0 Hypertensive heart disease with heart failure
CPT/HCPCS: 36415; 80053; 81001

== ENCOUNTER → 2023-01-14 15:19 | Outpatient (CLI) | payer MEDICARE, SELFPAY ==
--- NOTE | 2023-01-14 15:26 | XR_ITS ---
FINAL REPORT CLINICAL HISTORY: Pleural Effusion COMPARISON: 11/20/2022 FINDINGS: PA and lateral views of the chest were obtained. There has been no change in the left pacemaker. Heart size is stable. There is fullness of the right hilum which is unchanged. There are increased interstitial markings which are similar to the prior study. There is right middle lobe opacity. There is right pleural effusion anteriorly. No pneumothorax. No acute osseous abnormality is identified. IMPRESSION: Essentially stable airspace disease and right pleural effusion. Abnormal right hilar contour. Given persistence of abnormality, consider CT chest. Reviewed, Interpreted and Dictated by Roberta Clark MD Transcribed by Angie Sinha Authenticated and . [facility]
== END ==
PROVIDERS: PCP Internal Medicine Adolescent Medicine; Visit Provider Internal Medicine Pulmonary Disease
DX: R06.02 Shortness of breath (principal)
CPT/HCPCS: 71046

== ENCOUNTER → 2023-01-21 09:28 | Outpatient (CLI) | payer MEDICARE, SELFPAY | PROVIDERS: PCP Internal Medicine Adolescent Medicine; Visit Provider Internal Medicine Pulmonary Disease | DX: R06.02 Shortness of breath (principal); J90 Pleural effusion, not elsewhere classified | CPT/HCPCS: 94762 ==

== ENCOUNTER 2023-01-25 19:38 | Observation (INO) | payer MEDICARE, SELFPAY ==
[2023-01-25] VITALS (9 sets, daily range): BP systolic 135–149; BP diastolic 69–95; PULSE 70–76; RESP 16–21; TEMP 36.5–36.8; O2SAT 88–97; BMI 25.6; BMI 56.5
--- NOTE | 2023-01-25 19:51 | XR_ITS ---
PROCEDURE INFORMATION: Exam: XR Chest Exam date and time: 01/25/2023 8:10 PM Age: 87 years old Clinical indication: Prior surgery; Surgery date: 6+ months; Surgery type: Pacemaker; Patient HX: Shortness of breath for 2 days. Taking lasix, did not take potassium as prescribed she stated. ; Additional info: SOA, weakness TECHNIQUE: Imaging protocol: Radiologic exam of the chest. Views: 1 view. COMPARISON: CR XR CHEST 2V 01/14/2023 3:29 PM FINDINGS: Tubes, catheters and devices: Left subclavian pacemaker leads in good position. Lungs: Unremarkable. No consolidation. Pleural spaces: Subpulmonic right pleural effusion. Heart/Mediastinum: Mild compensated CHF. No cardiomegaly. Bones/joints: Unremarkable. IMPRESSION: Mild compensated CHF.
--- NOTE | 2023-01-25 19:51 | ECG_ITS ---
APPROVED REPORT Exam: Resting ECG HR:70 bpm ECG Measurements Heart Rate 70 AXES QRSd 154 QRS -86 QT 469 T 101 QTc 489 Conclusion ELECTRONIC VENTRICULAR PACEMAKER ABNORMAL RHYTHM ECG UNCONFIRMED REPORT Electronically signed by : Demetrio Mendosa MD 01/26/2023 19:28:12
[2023-01-25 19:58] LABS: Basophils # 0.1 K/mm3 (0-0.2); Basophils % 1.6 % (0.1-2.0); Eosinophils # 0.3 K/mm3 (0.0-0.4); Eosinophils % 3.3 % (0.1-12.0); Hematocrit 39.1 % (37.0-47.0); Hemoglobin 11.9 g/dL (12.2-16.2); Lymphocytes # 1.3 K/mm3 (0.7-4.5); Lymphocytes % 16.2 % (10-50); Mean Corpuscular HGB Conc 30.4 g/dL (31.8-35.4); Mean Corpuscular Hemoglobin 25.7 pg (27.0-31.2); Mean Corpuscular Volume 84.4 fl (81-99); Mean Platelet Volume 8.6 fl (7.4-10.4); Monocytes # 0.6 K/mm3 (0.1-1.0); Monocytes % 7.7 % (1.7-9.3); Neutrophils # 5.8 K/mm3 (1.8-7.8); Neutrophils % 71.3 % (37.0-80.0); Platelet Count 287 K/mm3 (142-424); Red Blood Count 4.64 M/mm3 (4.20-5.40); Red Cell Distribution Width 17.5 % (11.5-17.5); White Blood Count 8.1 K/mm3 (4.8-10.8)
--- NOTE | 2023-01-25 20:02 | PC.NURSE ---
At this time pt is refused covid/flu swab until you definitely know I'm being admitted .
[2023-01-25 20:04] LABS: Alanine Aminotransferase 21 U/L (12-78); Albumin Level 4.5 g/dl (3.5-5.0); Albumin/Globulin Ratio 1.4 (1.1-1.8); Alkaline Phosphatase 169 U/L (38-126); Anion Gap 14.8 mEq/L (5-15); Aspartate Amino Transferase 35 U/L (14-36); Bilirubin,Total 2.4 mg/dl (0.2-1.3); Blood Urea Nitrogen 28 mg/dl (7-17); Calcium 9.4 mg/dl (8.4-10.2); Carbon Dioxide 28 mmol/L (22.0-30.0); Chloride 101 mmol/L (98-107); Creatinine Clearance Estimated 37 mL/min (50-200); Estimated Glomerular Filt Rate 80 ml/min (>60); GFR (African American) 96 ML/MIN (>60); Globulin 3.3 g/dL (1.3-3.2); Glucose 123 mg/dl (74-100); Magnesium 2.3 mg/dl (1.6-2.3); Potassium 3.8 mmoL/L (3.5-5.1); Sodium 140 mmol/L (136-145); Total Protein,Serum 7.8 g/dl (6.3-8.2)
[2023-01-25 20:09] LABS: C-Reactive Protein 4.4 mg/L (0-4)
[2023-01-25 20:18] LABS: Troponin I < 0.01 ng/ml (0.00-0.034)
[2023-01-25 20:23] LABS: Procalcitonin 0.049 ng/mL (0.0-2.0)
[2023-01-25 20:33] LABS: NT Pro Brain Natriuretic Pep. 839 pg/mL (0-450)
[2023-01-25 20:38] LABS: Erythrocyte Sedimentation Rate 24 mm/hr (0-30)
--- NOTE | 2023-01-25 20:41 | PC.NURSE ---
at bedside talking to patient at this time.
--- NOTE | 2023-01-25 20:44 | HMH.EDWEAK ---
Discharge Plan Disposition Patient Disposition: Home, Self-Care Chief Complaint: Weakness Prescriptions Prescriptions: No Action clonazepam [Klonopin] 0.5 mg tablet 0.5 mg PO TIDP PRN (Reason: Anxiety) rosuvastatin [Crestor] 10 mg tablet 10 mg PO DAILY metoprolol succinate 200 mg tablet extended release 24 hr 200 mg PO BID Qty: 180 3RF rivaroxaban 20 MG tablet 20 mg PO QPMWITHMEAL digoxin 125 mcg (0.125 mg) tablet 125 mcg PO MOTUWETHFR mupirocin 2 % ointment 1 applic TOPICAL BID Label Comments: APPLY TOPICALLY TO THE AFFECTED AREA(S) TWICE DAILY furosemide 40 mg tablet 40 mg PO BID 30 Days Qty: 60 0RF nitrofurantoin monohyd/m-cryst [Macrobid] 100 mg capsule 100 mg PO Q12H 7 Days Qty: 14 0RF Rx Instructions: must administer with a meal/food aspirin 81 MG tablet,delayed release (DR/EC) 81 mg PO DAILY levothyroxine 200 MCG tablet 200 mcg PO DAILYDM verapamil 120 MG capsule,ext rel. pellets 24 hr 120 mg PO DAILY potassium chloride [Klor-Con M10] 10 mEq tablet,ER particles/crystals 10 meq PO DAILY Referrals Follow up/Referrals: Demetrio Mendosa MD [Primary Care Provider] - See instructions Clinical Impressions Clinical Impression: Cardiac pacemaker in situ, Pleural effusion, Acute on chronic diastolic (congestive) heart failure Instructions Patient Instructions: DI for Heart Failure Discharge ED Provider: Parker (ED),Richardson Diaz Weakness HPI General Chief complaint: Weakness Stated complaint: cant walk,SOB,weakness Time Seen by Provider: 01/25/23 20:44 Mode of Arrival: Wheelchair Source of Information: Patient and Medical Record Limitations: No Limitations Description of Symptoms (Recalled from ER Triage Doc. by RN): Increased weakness x 2 days, increased SOA, uses 2L/nc prn at home History of Present Illness HPI Narrative: increased sob and weakness over the last 2 days - no pain and no fever or cough Complaint: generalized weakness Onset (ago): day(s) Duration: constant Location: generalized Migration: none Severity: moderate Associated symptoms: shortness of breath Related Data Home Medications Medication Instructions Recorded Confirmed aspirin 81 mg tablet,delayed 81 mg PO DAILY Heart Health 08/12/18 01/14/23 release clonazepam 0.5 mg tablet (Klonopin) 0.5 mg PO TIDP PRN Anxiety 12/12/19 01/14/23 rosuvastatin 10 mg tablet (Crestor) 10 mg PO DAILY Cholesterol 12/12/19 01/14/23 rivaroxaban 20 mg tablet 20 mg PO QPMWITHMEAL Blood thinner 12/15/21 01/14/23 levothyroxine 200 mcg tablet 200 mcg PO DAILYDM hypothyroidism 02/28/22 01/14/23 potassium chloride 10 mEq 10 meq PO DAILY potassium 10/23/22 01/14/23 tablet,extended replacement release(part/cryst) (Klor-Con M) verapamil 120 mg 24 hr 120 mg PO DAILY Heart disease 10/23/22 01/14/23 capsule,extended release digoxin 125 mcg (0.125 mg) tablet 125 mcg PO MOTUWETHFR Heart disease 11/13/22 01/14/23 mupirocin 2 % topical ointment 1 applic topical BID skin problems 11/14/22 01/14/23 Previous Rx's Medication Instructions Recorded metoprolol succinate 200 mg 200 mg PO BID Heart rhythm #180 09/22/22 tablet,extended release 24 hr tabs furosemide 40 mg tablet 40 mg PO BID High blood pressure 11/15/22 30 days #60 tabs nitrofurantoin 100 mg PO Q12H 7 days #14 caps 11/15/22 monohydrate/macrocrystals 100 mg capsule (Macrobid) Allergies Allergy/AdvReac Type Severity Reaction Status Date / Time ciprofloxacin [From CIPRO] Allergy Mild I-RASH Verified 01/14/23 16:03 [facility] Disclaimer: The information contained in this section may have been updated after the patient was seen, as this information can be updated by other users. Medical History (Updated 01/25/23 @ 21:56 by Richardson Canales (ED)MD) Abnormality of lung on CXR Acute on chronic diastolic (congestive) heart failure Acute respiratory failure with hypoxia OZZIE (acute kidney injury)
--- NOTE | 2023-01-25 20:53 | PC.NURSE ---
Rounded on patient, no needs voiced at this time.
--- NOTE | 2023-01-25 21:06 | PC.NURSE ---
Pt still unable to void for UA sample at this time
[2023-01-25 21:14] LABS: T4 (Thyroxine) 10.8 ug/dl (5.53-11.0)
[2023-01-25 21:28] LABS: Thyroid Stimulating Hormone 2.07 uIU/mL (0.465-4.68)
--- NOTE | 2023-01-25 21:37 | PC.NURSE ---
in room talking to patient at this time.
--- NOTE | 2023-01-25 22:12 | PC.NURSE ---
When discharging pt & after removing IV, she is now deciding that Maybe I better stay in case I get weaker and become more short of breath . Dr. Canales was notified of this.
--- NOTE | 2023-01-25 22:22 | PC.NURSE ---
Dr. Canales s/w Yfn Haley APRN for admission
--- NOTE | 2023-01-25 22:23 | PC.NURSE ---
roads supervisor notified for bed assignment
[2023-01-25 22:24] LABS: Coronavirus 19, PCR Not Detected (NotDetected); Influenza A, PCR Not Detected (NotDetected); Influenza B, PCR Not Detected (NotDetected)
[2023-01-25 22:28] LABS: Microscopic, Urine URINE MICROSCOPIC (MICROSCOPIC)
--- NOTE | 2023-01-25 22:28 | PC.NURSE ---
Hospitalist at bedside at this time.
[2023-01-25 22:35] LABS: Appearance,Urine CLEAR (Clear); Bilirubin,Urine Negative (Negative); Blood, Urine Negative (Negative); Color,Urine DK YELLOW (Yellow); Glucose,Urine (UA) Negative (Negative); Ketones,Urine Negative (Negative); Leukocyte Esterase,Urine TRACE (Negative); Nitrate,Urine Negative (Negative); Protein,Urine 1+ (Negative); Specific Gravity, Urine 1.025 (1.005-1.030)
--- NOTE | 2023-01-25 22:35 | EXP.HP ---
History of Present Illness *Admission Date: 01/25/23 *Reason for visit:: Weakness *History of present illness: Ms. Chávez is a 87-year-old female patient with a past medical history of HFpEF (combined systolic and diastolic), Chronic Atrial Fibrillation on chronic anticoagulation, HTN. She presents to [facility] with a 2-day history of weakness. She denies chest pain, shortness of air. In the ER, CBC and CMP were unremarkable, TSH and Free T4 were within normal limits. BNP was elevated at 839. Cxray showed mildly compensated CHF. The plan was to discharge the patient and have her follow-up in Cardiology office, however at discharge the patient felt she was too weak to go home. On exam in the ER, she has some expiratory wheezing throughout, she complains of post-nasal drip. Full respiratory panel was ordered, blood cultures were ordered. She was given a one-time dose of Lasix and potassium. Cardiology will be consulted for the am. The plan of care was discussed with the patient and her son at bedside. Both verbalized understanding and agreement with the plan of care. [facility] Disclaimer: The information contained in this section may have been updated after the patient was seen, as this information can be updated by other users. Medical History Abnormality of lung on CXR Acute on chronic diastolic (congestive) heart failure Acute respiratory failure with hypoxia OZZIE (acute kidney injury) Bleeding from open wound of chest wall Combined congestive systolic and diastolic heart failure Congestive heart failure Duodenitis Elevated diaphragm Hyperlipidemia Lung collapse Pleural effusion on right Pleural effusion on right Shortness of Breath SIRS (systemic inflammatory response syndrome) UTI (urinary tract infection) Surgical History Cardiac pacemaker in situ History of colonoscopy Hx of cholecystectomy Family History Other Diabetes Social History (Updated 01/25/23 @ 23:54 by Devora Murphy RN) Smoking Status: Never smoker alcohol intake: never substance use type: denies use current occupational status: retired Travel in the last 8 weeks: None household members: none housing: house caffeine: No Review of Systems Review of Systems Review of systems:: pertinent systems reviewed and negative unless documented below Constitutional Constitutional: Reports fatigue, Reports lethargy, Reports malaise and Reports weakness Eyes Eyes: Reports system reviewed and no additional complaints, except as documented ENT Ears, Nose, Mouth, and Throat: Reports nasal congestion Comments: post-nasal drip *Cardiovascular Cardiovascular: Reports system reviewed and no additional complaints, except as documented *Respiratory Respiratory: Reports system reviewed and no additional complaints, except as documented *Gastrointestinal Gastrointestinal: Reports system reviewed and no additional complaints, except as documented *Genitourinary Genitourinary: Reports system reviewed and no additional complaints, except as documented *Musculoskeletal Musculoskeletal: Reports system reviewed and no additional complaints, except as documented Integumentary/Breasts Skin/Breast: Reports system reviewed and no additional complaints, except as documented *Neurologic Neurologic: Reports system reviewed and no additional complaints, except as documented and Reports weakness Psychiatric Psychiatric: Reports system reviewed and no additional complaints, except as documented Endocrine Endocrine: Reports fatigue Hematologic/Lymphatic Hematologic/Lymphatic: Reports system reviewed and no additional complaints, except as documented Meds Home Medications and Allergies Home Medications Medication Instructions Recorded Confirmed Type aspirin 81 mg tablet,delayed
[2023-01-25 22:50] LABS: Adenovirus,PCR Not Detected (NotDetected); Bordetella Pertussis Not Detected (NotDetected); Chlamydophila Pneumoniae, PCR Not Detected (NotDetected); Coronavirus 19, PCR Not Detected (NotDetected); Coronavirus 229E Not Detected (NotDetected); Coronavirus NL63 Not Detected (NotDetected); Coronavirus OC43 Not Detected (NotDetected); Coronovirus HKU1,PCR Not Detected (NotDetected); Human Metapneumovirus Not Detected (NotDetected); Influenza A, PCR Not Detected (NotDetected); Influenza AH1, 2009 Not Detected (NotDetected); Influenza AH1, PCR Not Detected (NotDetected); Influenza AH3,PCR Not Detected (NotDetected); Influenza B, PCR Not Detected (NotDetected); Mycoplasma Pneumoniae, PCR Not Detected (NotDetected); Parainfluenza 1, PCR Not Detected (NotDetected); Parainfluenza 2, PCR Not Detected (NotDetected); Parainfluenza 3, PCR Not Detected (NotDetected); Parainfluenza 4, PCR Not Detected (NotDetected); Respiratory Syncytial Virus Not Detected (NotDetected); Rhinovirus/Enterovirus Not Detected (NotDetected)
[2023-01-25 22:55] LABS: Bacteria,Urine Trace /lpf; Hyaline Casts,Urine Occasional #/lpf (0)
[2023-01-25 23:49] LABS: Troponin I < 0.01 ng/ml (0.00-0.034)
[2023-01-26 02:47] LABS: Troponin I < 0.01 ng/ml (0.00-0.034)
[2023-01-26 04:00] VITALS: BP 138/84; PULSE 70; RESP 16; TEMP 36.6; O2SAT 96; BMI 25.8
--- NOTE | 2023-01-26 07:20 | HMH.PHAINT1 ---
Pharmacy Intervention Comments: Medication reconciliation completed using external fill history
[2023-01-26 08:00] VITALS: BP 116/59; PULSE 70; RESP 18; TEMP 36.8; O2SAT 91
[2023-01-26 08:13] LABS: Alanine Aminotransferase 20 U/L (12-78); Albumin/Globulin Ratio 1.3 (1.1-1.8); Alkaline Phosphatase 161 U/L (38-126); Anion Gap 11.6 mEq/L (5-15); Aspartate Amino Transferase 32 U/L (14-36); Bilirubin,Total 2.4 mg/dl (0.2-1.3); Blood Urea Nitrogen 22 mg/dl (7-17); Calcium 8.8 mg/dl (8.4-10.2); Carbon Dioxide 27 mmol/L (22.0-30.0); Chloride 104 mmol/L (98-107); Creatinine Clearance Estimated 46 mL/min (50-200); Estimated Glomerular Filt Rate 80 ml/min (>60); GFR (African American) 96 ML/MIN (>60); Glucose 135 mg/dl (74-100); Magnesium 2.1 mg/dl (1.6-2.3); Potassium 3.6 mmoL/L (3.5-5.1); Sodium 139 mmol/L (136-145)
[2023-01-26 08:23] VITALS: PULSE 70
[2023-01-26 09:56] VITALS: PULSE 70; RESP 18
--- NOTE | 2023-01-26 10:22 | HMH.PTEV ---
Physical Therapy Evaluation Rehab PT IP Evaluation Start: 01/26/23 00:13 Freq: ONCE Status: Active Protocol: Document 01/26/23 10:16 PHORKAIT (Rec: 01/26/23 10:21 PHORNE [id number]) Subjective/History History History 87 yowf adm to [facility] with CHF exac. She reports she lives with granddaughter, but is alone much of the day. She reports she is generally independent with all mobility using rolator, but does need assistance with some ADLs at baseline. 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 Subjective Subjective She reports feeling fatigued this am, but agrees to get OOB . Rehab PT IP Eval Objective Appearance Patient Behavior Appropriate Patient Orientation Person,Place,Time Difficulty following instructions none Speech Pattern Clear Ambulation Patient Able to Ambulate Yes Ambulation Observation IP General Gait Pattern Observation Wide Based Gait Ambulation Distance (feet) 30 Ambulation Assistive Device Rolling Walker Ambulation Ability Contact Guard/Hand Hold Balance Ability to Arise Able, uses arms to help Sitting Balance Steady, safe Standing Balance Steady, wide stance Dynamic Sitting Balance Ability Good Dynamic Standing Balance Ability Fair Transfers Bed Transfer Ability Contact Guard/Hand Hold Chair Transfer Ability Contact Guard/Hand Hold Sit to Stand Bed Transfer Ability Contact Guard/Hand Hold Sit to Stand Chair Transfer Ability Contact Guard/Hand Hold ROM All Extremities PT ROM Status WFL MMT All Extremities PT MMT WFL Rehab PT IP prob,goals,plan Problems Date of Evaluation: 01/26/23 PT IP Problems Bed Mobility,Transfers,Gait Rehab Potential Rehab Potential Good Plan PT Intervention Plan Bed Mobility,Transfers,Gait, Therapeutic Exercise PT Plan Frequency BID Duration LOS Discharge Goals Bed Transfer Ability Supervision/Stand by Sit to Stand Chair Transfer Ability Supervision/Stand by Ambulation Assistive Device Rolling Walker Ambulation Distance (feet) 40 Discharge Plan PT Discharge Plan Pt is appropriate to return home once medically stable, recommend home health therapy
--- NOTE | 2023-01-26 12:18 | EXP.CARD.CON ---
History of Present Illness History of Present Illness Consult date: 01/26/23 Requesting physician: Maximino Naqvi Consult reason: congestive heart failure Chief complaint: weakness, CHF Additional Medical History:: 1. Chronic atrial fibrillation A. Xarelto therapy 2. Diastolic congestive heart failure, chronic A. Echocardiogram 11/14/2022, biatrial enlargement, normal LV size, mild concentric LVH, EF 55% with no regional WMA. Diastolic parameters inconclusive. Moderately enlarged right ventricle with normal contractility. Mild MR and moderate to severe TR with RVSP 56 mmHg 3. Permanent pacemaker E. Generator change, 07/02/2022 with [employer] explanted and [employer] DR model [id number] implanted 4. Suspected sleep apnea 5. Right pleural effusion on CTA of the chest 11/13/2022 with no evidence of pulmonary embolus, aortic dissection or aneurysm. Right heart enlargement History of present illness: Ms. Chávez is a 87-year-old female patient with a past medical history of HFpEF (combined systolic and diastolic), Chronic Atrial Fibrillation on chronic anticoagulation, HTN. She presents to [facility] with a 2-day history of weakness.? She denies chest pain, shortness of air. In the ER, CBC and CMP were unremarkable, TSH and Free T4 were within normal limits.? BNP was elevated at 839.? Cxray showed mildly compensated CHF.? The plan was to discharge the patient and have her follow-up in Cardiology office, however at discharge the patient felt she was too weak to go home.? On exam in the ER, she has some expiratory wheezing throughout, she complains of post-nasal drip.? Full respiratory panel was ordered, blood cultures were ordered.? She was given a one-time dose of Lasix and potassium.? Cardiology will be consulted for the am. The plan of care was discussed with the patient and her son at bedside.? Both verbalized understanding and agreement with the plan of care.? The above per Yfn Gill DNP, for the hospitalist service. Patient's complaints are mainly that of fatigue or weakness. She denies any significant increase in shortness of breath recently. She does not sleep well on a chronic basis likely since her last year. She apparently does snore per her son in the room. She has never had a sleep study. She recently did have a nocturnal oximetry study which is pending at this time. Despite elevated BNP this is actually good for her. Her renal functions are stable. Troponins were normal. EKG shows ventricular pacing at 70 bpm no acute changes. [facility] Disclaimer: The information contained in this section may have been updated after the patient was seen, as this information can be updated by other users. Medical History Abnormality of lung on CXR Acute on chronic diastolic (congestive) heart failure Acute respiratory failure with hypoxia OZZIE (acute kidney injury) Bleeding from open wound of chest wall Combined congestive systolic and diastolic heart failure Congestive heart failure Duodenitis Elevated diaphragm Hyperlipidemia Lung collapse Pleural effusion on right Pleural effusion on right Shortness of Breath SIRS (systemic inflammatory response syndrome) UTI (urinary tract infection) Surgical History Cardiac pacemaker in situ History of colonoscopy Hx of cholecystectomy Family History Other Diabetes Social History (Updated 01/25/23 @ 23:54 by Devora Murphy RN) Smoking Status: Never smoker alcohol intake: never substance use type: denies use current occupational status: retired Travel in the last 8 weeks: None household members: none housing: house caffeine: No Review of Systems Review of Systems Review of systems:: pertinent systems reviewed and negative unless documented below Const
--- NOTE | 2023-01-26 12:24 | EXP.DC.SUM ---
General Admission date:: 01/25/23 Discharge date: 01/26/23 HPI HPI HPI: Ms. Chávez is a 87-year-old female patient with a past medical history of HFpEF (combined systolic and diastolic), Chronic Atrial Fibrillation on chronic anticoagulation, HTN. She presents to [facility] with a 2-day history of weakness. She denies chest pain, shortness of air. In the ER, CBC and CMP were unremarkable, TSH and Free T4 were within normal limits. BNP was elevated at 839. Cxray showed mildly compensated CHF. The plan was to discharge the patient and have her follow-up in Cardiology office, however at discharge the patient felt she was too weak to go home. On exam in the ER, she has some expiratory wheezing throughout, she complains of post-nasal drip. Full respiratory panel was ordered, blood cultures were ordered. She was given a one-time dose of Lasix and potassium. Cardiology will be consulted for the am. The plan of care was discussed with the patient and her son at bedside. Both verbalized understanding and agreement with the plan of care. Hospital Course Hospital Course Hospital Course: 87-year-old female with past medical history of HFpEF (combined systolic and diastolic), Atrial Fibrillation on chronic anticoagulation, HTN presents with a 2-day history of progressive weakness - CHF exacerbation BNP elevated at 839. History of Acute on Chronic Systolic and Diastolic CHF. Treated with IV Lasix, responded with some improved diuresis. Remained stable on room air throughout duration of admission. Cardiology consulted. Recommended resuming home medications including aspirin 81 mg daily, digoxin 0.125 mg daily Thursday through Thursday only, furosemide 40 mg twice daily, metoprolol succinate 200 mg twice daily, potassium chloride 10 mEq twice daily, rivaroxaban 20 mg daily, Crestor 10 mg daily and verapamil 120 mg extended release daily. Given improvement with diuresis overnight. No further intervention needed. Plan for close follow-up with cardiology in 2 weeks. No overt findings on infectious work-up, labs at baseline for patient. - Declining Functional Status Patient complains mainly of weakness on rounds this morning.? Stable on baseline oxygen which is 2 L at night room air during the day.? Tolerating p.o. intake. Concern patient may have a component of depression underlying her fatigue as well as decreased exercise tolerance and increased debility from being less active and mobile. Evaluated by therapy, at baseline level of function. - Atrial Fibrillation Continue home dose of Metoprolol, Xarelto - HTN Continue Metoprolol, Verapamil Of note: -Prior to admission patient had an overnight pulse ox performed. Recommend patient follow-up on results with Dr. Pérez. She may also benefit from consideration of a sleep study as family says she snores significantly at night and does not sleep very well. Exam Data for Last 24 hours Vital signs and Labs for Last 24 Hours: Temp Pulse Resp BP Pulse Ox 98.2 F 70 18 116/59 L 91 L 01/26/23 08:00 01/26/23 09:56 01/26/23 09:56 01/26/23 08:00 01/26/23 08:00 Laboratory Results - last 24 hr 01/25/23 19:50: WBC 8.1, RBC 4.64, Hgb 11.9 L, Hct 39.1, MCV 84.4, MCH 25.7 L, MCHC 30.4 L, RDW 17.5, Plt Count 287, MPV 8.6, Neut % (Auto) 71.3, Lymph % (Auto) 16.2, [place] % (Auto) 7.7, Eos % (Auto) 3.3, Baso % (Auto) 1.6, Neut # (Auto) 5.8, Lymph # (Auto) 1.3, [place] # (Auto) 0.6, Eos # (Auto) 0.3, Baso # (Auto) 0.1, ESR 24 01/25/23 19:50: Sodium 140, Potassium 3.8, Chloride 101, Carbon Dioxide 28, Anion Gap 14.8, BUN 28 H, Creatinine 0.70, Estimated Creat Clear 37, Estimated GFR 80, Est GFR ( Amer) 96, Glucose 123 H, Calcium 9.4, Magnesium 2.3, Total Bilirubin 2.4 H, AST 35, ALT 21, Alkaline Phosphatase 169 H, Troponin I < 0.01, C-Reactive Protein 4.4 H, Total Protein 7.8, Albumin 4.5, Globulin 3.3 H, Albumin/Globulin Ratio 1.4, Procalcitonin 0.049 01/25/23 19:50: NT-Pro-B
--- NOTE | 2023-01-26 12:42 | HMH.PHAINT1 ---
Pharmacy Intervention Comments: Discussed discharge medications with patient. Patient verbalized understanding and had no questions at this time
--- NOTE | 2023-01-26 16:11 | CARE MANAGER ---
Per PT, patient would benefit from HH services for PT/OT. Patient Choice signed for [facility]. Referral faxed and per Tiana, services will start tomorrow (01/27).
--- NOTE | 2023-01-27 14:30 | CARE MANAGER ---
Contacted patient related to hospital discharge. Patient is aware of follow up appointments and denies questions or concerns. MARY Gutierrez
== END 2023-01-26 14:00 | disposition home health service (06) ==
LOC: ER 21:56 → 2ND 23:26
PROVIDERS: Nurse Practitioner Family; Admitting Provider Internal Medicine Adolescent Medicine; Emergency Provider Emergency Medicine; PCP Internal Medicine Adolescent Medicine; Visit Provider Internal Medicine Adolescent Medicine
DX: I50.33 Acute on chronic diastolic (congestive) heart failure (principal); I48.91 Unspecified atrial fibrillation; Z95.0 Presence of cardiac pacemaker; J90 Pleural effusion, not elsewhere classified; I11.0 Hypertensive heart disease with heart failure; Z79.01 Long term (current) use of anticoagulants; Z79.899 Other long term (current) drug therapy; Z20.822 Contact with and (suspected) exposure to COVID-19
CPT/HCPCS: G0378; 36415; 71045; 80053; 80162; 81001; 83735; 83880; 84145; 84436; 84443; 84484; 85025; 85651; 86140; 87040; 87070; 87086; 87088; 87186; 87205; 87581; 87632; 87798; 93005; 97162; 99285; C9803; U0003; U0005

== ENCOUNTER → 2023-03-17 13:58 | Outpatient (CLI) | payer MEDICARE, SELFPAY ==
--- NOTE | 2023-03-17 13:58 | CT_ITS ---
FINAL REPORT CLINICAL HISTORY: Effusion, SOA FINDINGS: CT CHEST WITHOUT CONTRAST TECHNIQUE: Axial CT images were performed through the chest without contrast. Coronal reformatted images were submitted. This study was performed with techniques to keep radiation doses as low as reasonably achievable (ALARA). Individualized dose reduction techniques using automated exposure control or adjustment of mA and/or kV according to the patient's size were employed. FINDINGS: There is streak artifact arising from left upper anterior chest wall pacemaker. There is no axillary adenopathy. There are multiple small lymph nodes throughout the mediastinum. An anterior mediastinal node measures up to 1.3 cm. The heart size is normal. There is no pericardial or pleural effusion. Patchy ground-glass opacities are seen in both upper and lower lungs probably due to acute pneumonitis. There is moderate right pleural effusion. There is pleural fluid seen tracking into the major fissure. There are small air bubbles along the course of the superior portion of the right major fissure and within the pleural fluid collection. This is possibly iatrogenic from recent thoracentesis. Atelectasis is seen in the left lung base. Limited images of the upper abdomen are unremarkable. IMPRESSION: 1. Small lymph nodes in the mediastinum favored to be reactive. 2. Patchy ground-glass opacities in both lungs likely due to acute pneumonitis. 3. Moderate right pleural effusion with a small hydropneumothorax extending into the major fissure. Please correlate with any recent history of thoracentesis. Reviewed, Interpreted and Dictated by Cleve Murray MD Transcribed by Virgen Roper Authenticated and . [facility]
== END ==
PROVIDERS: PCP Internal Medicine Adolescent Medicine; Visit Provider Internal Medicine Pulmonary Disease
DX: J90 Pleural effusion, not elsewhere classified (principal); J98.19 Other pulmonary collapse; J98.6 Disorders of diaphragm; R91.8 Other nonspecific abnormal finding of lung field
CPT/HCPCS: 71250

== ENCOUNTER → 2023-03-18 08:28 | Outpatient (CLI) | payer MEDICARE, SELFPAY ==
[2023-03-18 09:58] LABS: Chloride 94 mmol/L (98-107); Sodium 140 mmol/L (136-145)
[2023-03-18 09:59] LABS: Potassium 3.6 mmoL/L (3.5-5.1)
[2023-03-18 10:01] LABS: Blood Urea Nitrogen 21 mg/dl (7-17); Estimated Glomerular Filt Rate 68 ml/min (>60); GFR (African American) 82 ML/MIN (>60)
[2023-03-18 10:02] LABS: Anion Gap 16.6 mEq/L (5-15); Calcium 8.8 mg/dl (8.4-10.2); Carbon Dioxide 33 mmol/L (22.0-30.0); Glucose 107 mg/dl (74-100)
== END ==
PROVIDERS: PCP Internal Medicine Adolescent Medicine; Visit Provider Physician Assistant
DX: R06.02 Shortness of breath (principal); I10 Essential (primary) hypertension; I48.91 Unspecified atrial fibrillation; J90 Pleural effusion, not elsewhere classified; R06.00 Dyspnea, unspecified; R53.1 Weakness; Z95.0 Presence of cardiac pacemaker
CPT/HCPCS: 36415; 80048; 93308

== ENCOUNTER → 2023-03-24 11:38 | Outpatient (CLI) | payer MEDICARE, SELFPAY ==
[2023-03-24 16:20] LABS: Anion Gap 19.9 mEq/L (5-15); Blood Urea Nitrogen 71 mg/dl (7-17); Calcium 10.3 mg/dl (8.4-10.2); Carbon Dioxide 35 mmol/L (22.0-30.0); Chloride 88 mmol/L (98-107); Estimated Glomerular Filt Rate 47 ml/min (>60); GFR (African American) 57 ML/MIN (>60); Glucose 213 mg/dl (74-100); Sodium 140 mmol/L (136-145)
[2023-03-24 16:42] LABS: Potassium 2.9 mmoL/L (3.5-5.1)
== END ==
PROVIDERS: PCP Internal Medicine Adolescent Medicine; Visit Provider Physician Assistant
DX: J90 Pleural effusion, not elsewhere classified (principal); R06.02 Shortness of breath
CPT/HCPCS: 36415; 80048

== ENCOUNTER → 2023-03-31 15:06 | Outpatient (CLI) | payer MEDICARE, SELFPAY ==
[2023-03-31 15:33] LABS: Basophils # 0.1 K/mm3 (0-0.2); Chloride 100 mmol/L (98-107); Eosinophils # 0.2 K/mm3 (0.0-0.4); Eosinophils % 2.8 % (0.1-12.0); Hematocrit 37.5 % (37.0-47.0); Hemoglobin 11.6 g/dL (12.2-16.2); Lymphocytes # 1.4 K/mm3 (0.7-4.5); Lymphocytes % 17.1 % (10-50); Mean Corpuscular HGB Conc 30.9 g/dL (31.8-35.4); Mean Corpuscular Hemoglobin 25.1 pg (27.0-31.2); Mean Platelet Volume 8.2 fl (7.4-10.4); Monocytes # 0.6 K/mm3 (0.1-1.0); Neutrophils % 72.1 % (37.0-80.0); Platelet Count 322 K/mm3 (142-424); Potassium 4.3 mmoL/L (3.5-5.1); Red Blood Count 4.63 M/mm3 (4.20-5.40); Red Cell Distribution Width 18.9 % (11.5-17.5); Sodium 139 mmol/L (136-145); White Blood Count 8.3 K/mm3 (4.8-10.8)
[2023-03-31 15:35] LABS: Blood Urea Nitrogen 19 mg/dl (7-17); Estimated Glomerular Filt Rate 95 ml/min (>60); GFR (African American) 115 ML/MIN (>60)
[2023-03-31 15:36] LABS: Anion Gap 14.3 mEq/L (5-15); Carbon Dioxide 29 mmol/L (22.0-30.0); Glucose 92 mg/dl (74-100); Magnesium 2.1 mg/dl (1.6-2.3)
[2023-03-31 15:45] LABS: NT Pro Brain Natriuretic Pep. 1150 pg/mL (0-450)
--- NOTE | 2023-03-31 15:55 | XR_ITS ---
FINAL REPORT TECHNIQUE: Chest PA & Lateral CLINICAL HISTORY: pleural effusion COMPARISON: January 2023 FINDINGS: 2 views of the chest were performed. Cardiomegaly is noted. There is a left subclavian pacemaker. The mediastinum is within normal limits. There is right basilar atelectasis or pneumonia. A small right pleural effusion is partially improved. There is no pneumothorax. The bony thorax appears intact. IMPRESSION: Partially improved small right pleural effusion. Right basilar atelectasis or pneumonia. Reviewed, Interpreted and Dictated by Gerry Ospina III, MD Transcribed by Pedro Dinh Authenticated and [facility]
== END ==
PROVIDERS: PCP Internal Medicine Adolescent Medicine; Visit Provider Physician Assistant
DX: E87.6 Hypokalemia (principal); I10 Essential (primary) hypertension; I48.91 Unspecified atrial fibrillation; R06.02 Shortness of breath; R60.9 Edema, unspecified; Z95.0 Presence of cardiac pacemaker; J90 Pleural effusion, not elsewhere classified; R53.1 Weakness; I50.33 Acute on chronic diastolic (congestive) heart failure
CPT/HCPCS: 36415; 71046; 80048; 83735; 83880; 85025

== ENCOUNTER → 2023-04-27 11:48 | Outpatient (CLI) | payer MEDICARE, SELFPAY ==
--- NOTE | 2023-04-27 11:52 | XR_ITS ---
FINAL REPORT CLINICAL HISTORY: Shortness of breath COMPARISON: 03/31/2023 FINDINGS: Two views of the chest were obtained. Left subclavian pacer is present. The heart size and pulmonary vascularity are within normal limits. The mediastinum is normal. Worsening right base atelectasis or pneumonia. There is a small right pleural effusion. There is no pneumothorax. The bony thorax is intact. IMPRESSION: Worsening right base atelectasis or pneumonia with small right pleural effusion. Reviewed, Interpreted and Dictated by Gerry Ospina III, MD Transcribed by Angie Sinha Authenticated and [facility]
== END ==
PROVIDERS: PCP Internal Medicine Adolescent Medicine; Visit Provider Internal Medicine Pulmonary Disease
DX: R06.02 Shortness of breath (principal)
CPT/HCPCS: 71046

== ENCOUNTER → 2023-07-21 10:31 | Outpatient (CLI) | payer MEDICARE, SELFPAY ==
--- NOTE | 2023-07-21 10:36 | XR_ITS ---
FINAL REPORT TECHNIQUE: Chest PA & Lateral CLINICAL HISTORY: Effusion f/u COMPARISON: April 27, 2023 FINDINGS: 2 views of the chest were performed. The there is a left subclavian pacemaker. The heart size is normal. The mediastinum is within normal limits. There is mild bilateral atelectasis, right greater than left. A small right pleural effusion is stable. There is no pneumothorax. The bony thorax appears intact. IMPRESSION: Right greater than left mild bilateral atelectasis. Stable small right pleural effusion. Reviewed, Interpreted and Dictated by Gerry Ospina III, MD Transcribed by Pedro Dinh Authenticated and [facility]
== END ==
PROVIDERS: PCP Internal Medicine Adolescent Medicine; Visit Provider Internal Medicine Pulmonary Disease
DX: R06.02 Shortness of breath (principal)
CPT/HCPCS: 71046

== ENCOUNTER → 2023-08-17 09:59 | Outpatient (CLI) | payer MEDICARE, SELFPAY ==
--- NOTE | 2023-08-17 10:04 | CA_ITS ---
APPROVED REPORT EXAM: Comprehensive 2D, Doppler, and color-flow Echocardiogram Can Washer: Felicity Multani RT(R) Ht: 5 ft 5 in Wt: 150lbs BSA: 1.75 BP: 128/68 mmHg Indications: SOA, HTN, hyperlipidemia, AFIB, pacemaker 2D Dimensions LVOT 1.91 cm (M/F) 1.5-2.5 LVEF (Mckinney's) 61.10 % F: 54 - 74 LV Volume 86.30 mL F: 46 - 106 LV Volume Index 49.31 mL/m2 F: 29 - 61 LA Volume 79.70 mL LA Volume Index 45.54 mL/m2 (M/F) 16-34 M-Mode Dimensions RVDd 3.59 cm (0.9-2.6) LA Diam 5.34 cm (1.9-4.0) LVDd 3.95 cm (3.5-5.7) Ao Diam 2.52 cm (2.0-3.7) LVDs 3.16 cm (3.5-5.7) IVSd 0.86 cm (0.6-1.1) PWd 0.75 cm (0.6-1.1) EF (Teich) 41.50% FS 20.00% EDV (Teich) 67.90 mL TAPSE 1.61 (<1.7) ESV (Teich) 39.70 mL LV Diastology E Decel Time 160.00 (160-240 msec) E/A Ratio 3.2 MED E' 7.80 (< 7 cm/sec) E'/MED E' Ratio 14.00 (>14) LAT E' 9.30 (<10 cm/sec) E/LAT E' Ratio 11.74 (>14) Mitral Valve MV E Max Javed. 109.00 (40-130 cm/s) MV A Velocity 34.00 (40-130 cm/s) E/A Ratio 3.20 MV Decel. Time 160.00 (160-240 ms) MV PHT 47.00 ms Tricuspid Valve TR P. Velocity 359.00 cm/s RAP Estimate 15.00 mmHg RVSP 66.50 mmHg Left Ventricle The left ventricle is normal size. The left ventricular systolic function is normal. The left ventricular ejection fraction is within the normal range. There is increased LV wall thickness. The septum appears asynchronous. Grade 2 diastolic dysfunction is present. LVEF is 55%. Right Ventricle The right ventricle is mildly dilated. The right ventricular systolic function is normal. Device lead is present in the right ventricle. Atria The left atrium is moderately dilated. The right atrium is moderately dilated. There is no Doppler evidence of interatrial shunt. Aortic Valve The aortic valve is mildly thickened. There is no aortic valvular stenosis. Trace aortic regurgitation. Mitral Valve The mitral valve is mildly thickened. No evidence of mitral valve stenosis. There is moderate mitral regurgitation. Tricuspid Valve The tricuspid valve leaflets are mildly thickened. Severe tricuspid regurgitation. RVSP is > 60 mmHg. There is systolic hepatic venous reversal, suggestive of significant TR. The TR originates from the pacemaker site. Pulmonic Valve The pulmonary valve is normal in structure. Mild pulmonic regurgitation. Great Vessels The aortic root is normal in size. The ascending aorta is not well visualized. The IVC is plethoric. Pericardium There is no pericardial effusion. Other Information Study Quality: Fair Conclusion Normal biventricular systolic function. Grade 2 diastolic dysfunction. Mild RV dilation. Moderate biatrial dilatation. Moderate MR. Severe TR (at the site of the pacemaker lead). Electronically signed by : Soco Dickerson MD 08/17/2023 22:11:23
--- NOTE | 2023-08-17 11:14 | XR_ITS ---
FINAL REPORT CLINICAL HISTORY: dyspnea COMPARISON: 07/21/2023 FINDINGS: Two views of the chest were obtained. A left subclavian pacemaker is once again identified. There is a right base opacity, atelectasis or pneumonia, not significantly changed since the prior film. The mediastinum is normal. A small right pleural effusion remains present. There is no pneumothorax. The bony thorax is intact. IMPRESSION: Right base opacity, atelectasis versus pneumonia, persists as well as a small right pleural effusion. Reviewed, Interpreted and Dictated by Gerry Ospina III, MD Transcribed by Hoda Zavala Authenticated and [facility]
[2023-08-17 11:32] LABS: Basophils # 0.1 K/mm3 (0-0.2); Eosinophils # 0.1 K/mm3 (0.0-0.4); Eosinophils % 1.6 % (0.1-12.0); Hematocrit 44.3 % (37.0-47.0); Hemoglobin 13.8 g/dL (12.2-16.2); Lymphocytes # 1.1 K/mm3 (0.7-4.5); Lymphocytes % 14.8 % (10-50); Mean Corpuscular Volume 90.1 fl (81-99); Mean Platelet Volume 8.6 fl (7.4-10.4); Monocytes # 0.6 K/mm3 (0.1-1.0); Monocytes % 7.9 % (1.7-9.3); Neutrophils # 5.6 K/mm3 (1.8-7.8); Neutrophils % 74.7 % (37.0-80.0); Platelet Count 218 K/mm3 (142-424); Red Blood Count 4.92 M/mm3 (4.20-5.40); Red Cell Distribution Width 17.7 % (11.5-17.5); White Blood Count 7.5 K/mm3 (4.8-10.8)
[2023-08-17 13:05] LABS: Alanine Aminotransferase 24 U/L (12-78); Albumin Level 4.2 g/dl (3.5-5.0); Alkaline Phosphatase 172 U/L (38-126); Anion Gap 14.5 mEq/L (5-15); Aspartate Amino Transferase 41 U/L (14-36); Bilirubin,Direct 0.5 mg/dl (0.0-0.4); Bilirubin,Indirect 2.6 mg/dL (0.0-0.9); Bilirubin,Total 3.1 mg/dl (0.2-1.3); Bilirubin,Unconjugated 2.5 mg/dL (0.0-1.1); Blood Urea Nitrogen 21 mg/dl (7-17); Calcium 9.2 mg/dl (8.4-10.2); Carbon Dioxide 29 mmol/L (22.0-30.0); Chloride 103 mmol/L (98-107); Chol/HDL Ratio 3.2 (1-3.5); Cholesterol 99 mg/dl (140-200); Estimated Glomerular Filt Rate 68 ml/min (>60); GFR (African American) 82 ML/MIN (>60); Glucose 108 mg/dl (74-100); HDL Cholesterol 31 mg/dl (40-60); Magnesium 2.3 mg/dl (1.6-2.3); Potassium 3.5 mmoL/L (3.5-5.1); Sodium 143 mmol/L (136-145); Total Protein,Serum 7.6 g/dl (6.3-8.2); Triglycerides 113 mg/dl (30-150); VLDL Cholesterol 23 mg/dL (0-40)
[2023-08-17 13:15] LABS: Direct LDL Cholesterol 48.23 mg/dL (100-129)
[2023-08-17 13:44] LABS: Free T4 (Free Thyroxine) 2.01 ng/dl (0.78-2.19)
[2023-08-17 15:45] LABS: Troponin I < 0.01 ng/ml (0.00-0.034)
[2023-08-17 15:55] LABS: Thyroid Stimulating Hormone 0.63 uIU/mL (0.465-4.68)
== END ==
PROVIDERS: PCP Internal Medicine Adolescent Medicine; Visit Provider Nurse Practitioner
DX: I10 Essential (primary) hypertension (principal); I48.91 Unspecified atrial fibrillation; R06.02 Shortness of breath; R53.1 Weakness; R68.83 Chills (without fever); Z95.0 Presence of cardiac pacemaker; R06.00 Dyspnea, unspecified
CPT/HCPCS: 36415; 71046; 80048; 80061; 80076; 83735; 84439; 84443; 84484; 85025; 93306

== ENCOUNTER 2023-08-26 17:03 | Observation (INO) | payer MEDICARE, SELFPAY ==
[2023-08-26] VITALS (10 sets, daily range): BP systolic 81–141; BP diastolic 46–95; PULSE 70–74; RESP 15–18; TEMP 36.4–36.6; O2SAT 93–100; BMI 25.0; BMI 23.1
--- NOTE | 2023-08-26 17:05 | PC.NURSE ---
awa wrap applied over top of hematoma on LLE for compression per ER MD Thompson request.
--- NOTE | 2023-08-26 17:19 | CT_ITS ---
PROCEDURE INFORMATION: Exam: CTA Left Lower Extremity With Contrast Exam date and time: 08/26/2023 6:15 PM Age: 88 years old Clinical indication: Patient HX: Large hematoma on left lower leg, PT hit leg on car door a few days ago , discoloration to leg from knee down to foot; Additional info: Hematoma rapidly expanding, on xarelto TECHNIQUE: Imaging protocol: Computed tomographic angiography of the left lower extremity with contrast. 3D rendering (Not supervised by radiologist): MIP and/or 3D reconstructed images were created by the technologist. Radiation optimization: All CT scans at this facility use at least one of these dose optimization techniques: automated exposure control; mA and/or kV adjustment per patient size (includes targeted exams where dose is matched to clinical indication); or iterative reconstruction. Contrast material: ISOVUE 370; Contrast volume: 120 ml; Contrast route: INTRAVENOUS (IV); REPORTING DATA: Count of CT and Cardiac NM exams in prior 12 months: This patient has received 3 known CTs and 0 known cardiac nuclear medicine studies in the 12 months prior to the current study. COMPARISON: CT ABDOMEN PELVIS W CON 11/13/2022 4:00 PM FINDINGS: Left iliac arteries: No significant stenosis or occlusion. Mild common and internal iliac artery disease. External iliac artery widely patent. Left femoral/popliteal arteries: No occlusion or significant stenosis. Mild common femoral artery and distal SFA disease. Mild popliteal artery disease with note short segment is not visualized secondary to knee hardware artifact. Left infrapopliteal arteries: Posterior tibial artery is patent to the foot with patent plantar artery. Peroneal artery is patent to the ankle. Anterior tibial artery demonstrates gradual fading of contrast distally at the ankle/foot with unopacified dorsalis pedis artery. Right lower extremity arteries: Incidental imaging of the right lower extremity arteries demonstrates no significant stenosis or occlusion with note of short segment of the popliteal artery is not visualized secondary to hardware artifact. Three-vessel runoff to the foot. Bones/joints: Osteopenia. Bilateral knee arthroplasties, hardware artifact limits evaluation of the adjacent structures. No acute fracture. No dislocation. Soft tissues: Subcutaneous hematoma along the anteromedial left lower leg at the level of the proximal/mid tibia measuring approximately 8 x 2 cm measured on axial images and 11 cm in craniocaudal dimension measured on coronal images. Small focus of contrast blush within the lateral margin of the hematoma compatible with active extravasation. Other findings: Small layering stones within the urinary bladder. Colonic diverticulosis. Status post hysterectomy. IMPRESSION: 1. Subcutaneous hematoma along the anteromedial left lower leg at the level of the proximal/mid tibia measuring 8 x 2 x 11 cm. Small focus of contrast blush within the lateral margin of the hematoma compatible with active extravasation, feeder vessel not identified, likely superficial branch. 2. No significant femoropopliteal artery disease. Left anterior tibial artery demonstrates gradual fading of contrast distally at the ankle/foot with unopacified dorsalis pedis artery which may be secondary to phase of imaging or vessel disease, can correlate with distal pulses. 3. Please see above for chronic and incidental findings. THIS REPORT CONTAINS FINDINGS THAT MAY BE CRITICAL TO PATIENT CARE. The findings were verbally communicated via telephone conference at 7:28 PM EDT on 08/26/2023 with Arturo Thompson. The findings were acknowledged and understood.
--- NOTE | 2023-08-26 17:21 | HMH.EDGENADL ---
Discharge Plan Disposition Patient Disposition: Admitted Condition: Good Clinical Impressions Clinical Impression: Hematoma, Arterial hemorrhage Discharge ED Provider: Arturo Thompson General Adult HPI General Chief complaint: Skin/Abscess/Foreign Body Stated complaint: lower extremedy non injury Time Seen by Provider: 08/26/23 17:04 Mode of Arrival: EMS Source of Information: Patient Limitations: No Limitations Description of Symptoms (Recalled from ER Triage Doc. by RN): Presents to ED with c/o large hematoma to the left leg. Patient reports she hit her leg on thursday and wrapped her leg with an awa wrap. Unwrapped leg yesterday and re-wrapped today before going to eat patient reports it had raised within 10 minutes. PAtient states she felt a sharp burning pain. +PMS +Xarelto History of Present Illness HPI narrative: 88-year-old female history of A-fib on Xarelto, hypertension, hyperlipidemia, CHF on diuretics presenting with left lower extremity hematoma. She struck her left lower extremity with a car door 4 days prior to arrival. Since that time, she is kept it wrapped. Today, she took the wrap off and went to lunch. He got significantly worse at lunch rapidly, so she called EMS. Pain is severe in intensity, made worse with bearing weight and direct pressure. Not made worse with active or passive range of motion. Patient denies neurovascular deficits. Related Data Home Medications Medication Instructions Recorded Confirmed aspirin 81 mg tablet,delayed 81 mg PO DAILY Heart Health 08/12/18 08/19/23 release levothyroxine 200 mcg tablet 200 mcg PO DAILYDM thyroid 02/28/22 08/19/23 clonazepam 0.5 mg tablet (Klonopin) 0.5 mg PO TID PRN Anxiety 03/02/23 08/19/23 Previous Rx's Medication Instructions Recorded cholecalciferol (vitamin D3) 25 25 mcg PO DAILY #30 caps 04/28/23 mcg (1,000 unit) capsule digoxin 125 mcg (0.125 mg) tablet See Rx Instructions .Route 04/28/23 .COMPLEX #30 tabs furosemide 40 mg tablet 40 mg PO BID High blood pressure 04/28/23 #60 tabs metoprolol succinate 200 mg 200 mg PO BID Heart rhythm #180 04/28/23 tablet,extended release 24 hr tabs potassium chloride 10 mEq 10 meq PO BID #60 caps 04/28/23 capsule,extended release rivaroxaban 20 mg tablet 20 mg PO QPMWITHMEAL Blood 04/28/23 thinner/AFIB #30 tabs rosuvastatin 10 mg tablet (Crestor) 10 mg PO DAILY Cholesterol #30 tabs 04/28/23 verapamil 120 mg 24 hr 120 mg PO DAILY Heart disease #30 04/28/23 capsule,extended release caps spironolactone 25 mg tablet 25 mg PO DAILY #30 tabs 08/17/23 Allergies Allergy/AdvReac Type Severity Reaction Status Date / Time ciprofloxacin [From CIPRO] Allergy Mild I-RASH Verified 08/19/23 13:26 [facility] Disclaimer: The information contained in this section may have been updated after the patient was seen, as this information can be updated by other users. Medical History Abnormality of lung on CXR Acute on chronic diastolic (congestive) heart failure Acute respiratory failure with hypoxia OZZIE (acute kidney injury) Bleeding from open wound of chest wall Chills Combined congestive systolic and diastolic heart failure Congestive heart failure Duodenitis Elevated diaphragm Hyperlipidemia Hypokalemia Lung collapse Pleural effusion on right Pleural effusion on right Shortness of Breath SIRS (systemic inflammatory response syndrome) UTI (urinary tract infection) Surgical History Cardiac pacemaker in situ History of colonoscopy Hx of cholecystectomy Family History Other Diabetes Social History Smoking Status: Never smoker alcohol intake: never substance use type: denies use current occupational status: retired Travel in the last 8 weeks: None household members: none
[2023-08-26 17:39] LABS: Basophils # 0.1 K/mm3 (0-0.2); Basophils % 1.3 % (0.1-2.0); Eosinophils # 0.1 K/mm3 (0.0-0.4); Eosinophils % 1.5 % (0.1-12.0); Hematocrit 43.5 % (37.0-47.0); Hemoglobin 14.3 g/dL (12.2-16.2); Lymphocytes # 1.4 K/mm3 (0.7-4.5); Lymphocytes % 20.2 % (10-50); Mean Corpuscular HGB Conc 32.9 g/dL (31.8-35.4); Mean Corpuscular Hemoglobin 29.6 pg (27.0-31.2); Mean Platelet Volume 8.1 fl (7.4-10.4); Monocytes # 0.4 K/mm3 (0.1-1.0); Monocytes % 6.5 % (1.7-9.3); Neutrophils # 4.7 K/mm3 (1.8-7.8); Neutrophils % 70.4 % (37.0-80.0); Platelet Count 257 K/mm3 (142-424); Red Blood Count 4.84 M/mm3 (4.20-5.40); Red Cell Distribution Width 17.3 % (11.5-17.5); White Blood Count 6.7 K/mm3 (4.8-10.8)
[2023-08-26 17:42] LABS: Alanine Aminotransferase 30 U/L (12-78); Albumin Level 4.6 g/dl (3.5-5.0); Albumin/Globulin Ratio 1.1 (1.1-1.8); Alkaline Phosphatase 169 U/L (38-126); Anion Gap 17.1 mEq/L (5-15); Aspartate Amino Transferase 45 U/L (14-36); Blood Urea Nitrogen 27 mg/dl (7-17); Calcium 9.7 mg/dl (8.4-10.2); Carbon Dioxide 29 mmol/L (22.0-30.0); Chloride 100 mmol/L (98-107); Creatinine Clearance Estimated 43 mL/min (50-200); Estimated Glomerular Filt Rate 53 ml/min (>60); GFR (African American) 64 ML/MIN (>60); Globulin 4.2 g/dL (1.3-3.2); Glucose 162 mg/dl (74-100); Potassium 4.1 mmoL/L (3.5-5.1); Sodium 142 mmol/L (136-145); Total Protein,Serum 8.8 g/dl (6.3-8.2)
[2023-08-26 17:45] LABS: INR 1.52 (0.9-1.1)
--- NOTE | 2023-08-26 18:00 | PC.NURSE ---
Annemarie RN @ Patient BP: 81/50 with a MAP of 60. Upon reassessment patient still hypotensive. NS hung on patient. Will continue to monitor patient's V/S
--- NOTE | 2023-08-26 18:00 | PC.NURSE ---
Patient's O2 sat 84% RA. 2L NC applied to patient per Annemarie HERNANDEZ
--- NOTE | 2023-08-26 18:01 | PC.NURSE ---
Charge nurse(Annemarie)aware of o2 sats dropping and bp
--- NOTE | 2023-08-26 18:19 | PC.NURSE ---
pt going to ct scan
--- NOTE | 2023-08-26 18:26 | PC.NURSE ---
pts bp responded to IVF bolus, pt got approx 200 mL and had a bp of 109 sbp, ER MD stated okay to stop IVF bolus.
--- NOTE | 2023-08-26 18:39 | PC.NURSE ---
pt return from CT via stretcher, given warm blanket, family at BS, call light in reach
--- NOTE | 2023-08-26 18:59 | PC.NURSE ---
Rounded on patient nothing needed at this time. Call light within reach.
--- NOTE | 2023-08-26 19:32 | PC.NURSE ---
on the phone with hospitalist
--- NOTE | 2023-08-26 19:35 | PC.NURSE ---
House notified of admission
--- NOTE | 2023-08-26 20:01 | PC.NURSE ---
rounded on patient no new complaints
--- NOTE | 2023-08-26 20:28 | EXP.HP ---
History of Present Illness *Admission Date: 08/26/23 *Reason for visit:: large left leg hematoma *History of present illness: This is a 88-year-old female wth a PMHx of A-fib on Xarelto, hypertension, hyperlipidemia, CHF on diuretics, PPM in situ, presenting with left lower extremity hematoma. She struck her left lower extremity with a car door around last thursday, been wrapped since that time. Today, she took the wrap off while she was at the restaurant at lunchtime, and got significantly worse, with rapidly enlarge, so she called EMS. Pain is severe in intensity, made worse with bearing weight and direct pressure. Not made worse with active or passive range of motion. Patient denies neurovascular deficits. Admitted for treatment and management. [facility] Disclaimer: The information contained in this section may have been updated after the patient was seen, as this information can be updated by other users. Medical History (Updated 08/27/23 @ 00:19 by Gamal Nino APRN) Abnormality of lung on CXR Acute on chronic diastolic (congestive) heart failure Acute respiratory failure with hypoxia OZZIE (acute kidney injury) Bleeding from open wound of chest wall Chills Combined congestive systolic and diastolic heart failure Congestive heart failure Duodenitis Elevated diaphragm Hyperlipidemia Hypokalemia Lung collapse Pleural effusion on right Pleural effusion on right Shortness of Breath SIRS (systemic inflammatory response syndrome) UTI (urinary tract infection) Surgical History Cardiac pacemaker in situ History of colonoscopy Hx of cholecystectomy Family History Other Diabetes Social History (Updated 08/26/23 @ 21:35 by Mile Godfrey RN) Smoking Status: Never smoker alcohol intake: never substance use type: denies use current occupational status: retired Travel in the last 8 weeks: None household members: none housing: house caffeine: No Review of Systems Review of Systems Review of systems:: pertinent systems reviewed and negative unless documented below Meds Home Medications and Allergies Home Medications Medication Instructions Recorded Confirmed Type aspirin 81 mg tablet,delayed 81 mg PO DAILY Heart Health 08/12/18 08/27/23 History release levothyroxine 200 mcg tablet 200 mcg PO DAILYDM thyroid 02/28/22 08/26/23 History clonazepam 0.5 mg tablet (Klonopin) 0.5 mg PO TID Anxiety 03/02/23 08/27/23 History rivaroxaban 20 mg tablet 20 mg PO QPMWITHMEAL Blood 04/28/23 08/26/23 Rx thinner/AFIB #30 tabs rosuvastatin 10 mg tablet (Crestor) 10 mg PO DAILY Cholesterol #30 tabs 04/28/23 08/26/23 Rx Lactobacillus 1 cap PO DAILY GI health 08/26/23 08/27/23 History acidophilus-Bifidobac.animalis 2 billion cell capsule (TruBiotics) digoxin 125 mcg (0.125 mg) tablet 125 mcg PO MOTUWETHFR Heart Rate 08/26/23 08/27/23 History furosemide 40 mg tablet (Lasix) 40 mg PO BID Fluid 08/26/23 08/26/23 History vitamins A,C,E-lbep-wbeviv 2,148 1 tab PO BID 08/26/23 08/26/23 History mcg-113 mg-45 mg-17.4 mg tablet (PreserVision AREDS) cholecalciferol (vitamin D3) 25 25 mcg PO DAILY Supplement 08/27/23 08/27/23 History mcg (1,000 unit) capsule metoprolol succinate 200 mg 200 mg PO BID Heart Rate 08/27/23 08/26/23 History tablet,extended release 24 hr potassium chloride 10 mEq 10 meq PO BID Supplement 08/27/23 08/26/23 History capsule,extended release spironolactone 25 mg tablet 25 mg PO DAILY Fluid 08/27/23 08/26/23 History verapamil 120 mg 24 hr 120 mg PO DAILY Heart Rate 08/27/23 08/26/23 History capsule,extended release New Prescriptions to Start Prescriptions: Allergies Allergy/AdvReac Type Severity Reaction Status Date / Time ciprofloxacin [From CIPRO] Allergy Mild I-RASH Verified 08/19/23 13:26 Exam Data for Last 24 hours Vital signs and Labs
--- NOTE | 2023-08-26 20:29 | PC.NURSE ---
Kevin arrived to floor via stretcher at 20:25.
[2023-08-27 04:00] VITALS: BP 116/61; PULSE 70; RESP 20; TEMP 36.6; O2SAT 96; BMI 24.0
--- NOTE | 2023-08-27 04:30 | PC.NURSE ---
Pt awake in bed, current pain level 4/10 after PRN pain medication administered. Denies additional PRN pain medication at this time. CINTHYA wrap still applied to LLE and pulse assessment completed. Pt remains on 2 L NC due to PRN morphine, 96% SpO2 on last VS check. No acute needs at this time. No significant issues needing addressed per pt at this time.
[2023-08-27 06:16] LABS: Basophils # 0.1 K/mm3 (0-0.2); Basophils % 1.2 % (0.1-2.0); Eosinophils # 0.1 K/mm3 (0.0-0.4); Eosinophils % 1.7 % (0.1-12.0); Hematocrit 39.8 % (37.0-47.0); Hemoglobin 12.9 g/dL (12.2-16.2); Lymphocytes # 1.2 K/mm3 (0.7-4.5); Lymphocytes % 18.8 % (10-50); Mean Corpuscular HGB Conc 32.6 g/dL (31.8-35.4); Mean Corpuscular Hemoglobin 29.4 pg (27.0-31.2); Mean Corpuscular Volume 90.3 fl (81-99); Mean Platelet Volume 8.1 fl (7.4-10.4); Monocytes # 0.6 K/mm3 (0.1-1.0); Monocytes % 10.2 % (1.7-9.3); Neutrophils # 4.3 K/mm3 (1.8-7.8); Platelet Count 220 K/mm3 (142-424); Red Blood Count 4.41 M/mm3 (4.20-5.40); Red Cell Distribution Width 17.2 % (11.5-17.5); White Blood Count 6.3 K/mm3 (4.8-10.8)
[2023-08-27 06:20] LABS: Chloride 106 mmol/L (98-107); Sodium 143 mmol/L (136-145)
[2023-08-27 06:22] LABS: Blood Urea Nitrogen 27 mg/dl (7-17); Creatinine Clearance Estimated 38 mL/min (50-200); Estimated Glomerular Filt Rate 47 ml/min (>60); GFR (African American) 57 ML/MIN (>60)
[2023-08-27 06:23] LABS: Alanine Aminotransferase 25 U/L (12-78); Albumin Level 3.8 g/dl (3.5-5.0); Albumin/Globulin Ratio 1.2 (1.1-1.8); Alkaline Phosphatase 150 U/L (38-126); Aspartate Amino Transferase 34 U/L (14-36); Calcium 8.8 mg/dl (8.4-10.2); Carbon Dioxide 28 mmol/L (22.0-30.0); Globulin 3.3 g/dL (1.3-3.2); Glucose 103 mg/dl (74-100); Magnesium 2.2 mg/dl (1.6-2.3); Total Protein,Serum 7.1 g/dl (6.3-8.2)
--- NOTE | 2023-08-27 07:42 | PC.NURSE ---
rounded on pt, updated pts whiteboard, no needs at this time
[2023-08-27 08:00] VITALS: BP 112/60; PULSE 70; RESP 17; TEMP 36.4; O2SAT 96
--- NOTE | 2023-08-27 08:28 | HMH.PHAINT1 ---
Pharmacy Intervention Comments: MEDICATION RECONCILIATION COMPLETED ON PATIENT USING EXTERNAL FILL HISTORY FORM PHARMACY. -PARAM B[facility]CH, [place]
--- NOTE | 2023-08-27 09:32 | EXP.PN ---
Subjective *Date: 08/27/23 *Time: 09:32 Interval history: The patient is seen and examined at bedside today. She is accompanied by her granddaughter. She lives with her granddaughter and great grandson's. She ambulates at home with a rolling walker. She describes previous bilateral total knee arthroplasties. 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 The patient reports adequate pain control. She denies retrosternal chest pain, dyspnea, confusion or palpitations. Orthopedic surgery is not available at our facility today. Nursing staff report that she remains afebrile with stable vital signs and saturating appropriately on room air. A recent echocardiogram by cardiology identified an EF 55% with grade 2 diastolic dysfunction and severe tricuspid regurgitation. We discussed the left lower extremity CTA identifies subcutaneous anterior medial hematoma 8 x 2 cm and active arterial blush. She identifies pain which prompted her ED presentation and is improved with opioid therapy. She identified some paresthesias to the leg but no paralysis or paleness. ED documented intact distal pulses. PT is due to see the patient to evaluate for wound care and recommendations concerning her subcu hematoma. With her elevated total bilirubin and INR we will evaluate and liver ultrasound and trend her labs. Exam Data for Last 24 hours Vital signs and Labs for Last 24 Hours: Temp Pulse Resp BP Pulse Ox O2 Del Method O2 Flow Rate 97.5 F L 70 17 112/60 96 Room Air 2 08/27/23 08:00 08/27/23 08:00 08/27/23 08:00 08/27/23 08:00 08/27/23 08:00 08/27/23 08:00 08/27/23 07:00 Laboratory Results - last 24 hr 08/26/23 17:21: WBC 6.7, RBC 4.84, Hgb 14.3, Hct 43.5, MCV 90.0, MCH 29.6, MCHC 32.9, RDW 17.3, Plt Count 257, MPV 8.1, Neut % (Auto) 70.4, Lymph % (Auto) 20.2, Thomas % (Auto) 6.5, Eos % (Auto) 1.5, Baso % (Auto) 1.3, Neut # (Auto) 4.7, Lymph # (Auto) 1.4, Thomas # (Auto) 0.4, Eos # (Auto) 0.1, Baso # (Auto) 0.1, PT 16.0 H, INR 1.52 H, APTT 34.0 H, Sodium 142, Potassium 4.1, Chloride 100, Carbon Dioxide 29, Anion Gap 17.1 H, BUN 27 H, Creatinine 1.00, Estimated Creat Clear 43, Estimated GFR 53 L, Est GFR ( Amer) 64, Glucose 162 H, Calcium 9.7, Total Bilirubin 3.0 H, AST 45 H, ALT 30, Alkaline Phosphatase 169 H, Total Protein 8.8 H, Albumin 4.6, Globulin 4.2 H, Albumin/Globulin Ratio 1.1 08/27/23 05:40: WBC 6.3, RBC 4.41, Hgb 12.9, Hct 39.8, MCV 90.3, MCH 29.4, MCHC 32.6, RDW 17.2, Plt Count 220, MPV 8.1, Neut % (Auto) 68.0, Lymph % (Auto) 18.8, Thomas % (Auto) 10.2 H, Eos % (Auto) 1.7, Baso % (Auto) 1.2, Neut # (Auto) 4.3, Lymph # (Auto) 1.2, Thomas # (Auto) 0.6, Eos # (Auto) 0.1, Baso # (Auto) 0.1, Sodium 143, Potassium 4.0, Chloride 106, Carbon Dioxide 28, Anion Gap 13.0, BUN 27 H, Creatinine 1.10 H, Estimated Creat Clear 38, Estimated GFR 47 L, Est GFR ( Amer) 57 L, Glucose 103 H D, Calcium 8.8, Magnesium 2.2, Total Bilirubin 2.0 H, AST 34, ALT 25, Alkaline Phosphatase 150 H, Total Protein 7.1, Albumin 3.8 D, Globulin 3.3 H, Albumin/Globulin Ratio 1.2 I & O for Last 24 hours: Intake & Output 08/24/23 08/25/23 08/26/23 08/27/23 23:59 23:59 23:59 23:59 Intake Total 250 / 250 Output Total 0 / 0 0 / 0 Balance 0 / 250 250 / 250 Weight 62.851 kg 65.544 kg Constitutional Constitutional: no acute distress, thin and cooperative *Routine HEENT Exam Head: Present normocephalic and atraumatic Eye: Present EOMI and PERRL ENT: Present mucous membranes moist *Routine Neck Exam Neck: Present supple, full ROM and trachea midline; Absent lymphadenopathy *Routine Respiratory Exam Respiratory: Present CTA bilaterally, normal respiratory effort and symmetric chest movement *Routine Cardiovascular Exam Cardiovascular: Present RRR, Normal S1, Normal S2 and murmur *Routine Abdominal Exam Abdominal: Present soft and normoactive bowel sounds; Absent tenderness *Routine Extremities Exam Ex
--- NOTE | 2023-08-27 09:50 | US_ITS ---
FINAL REPORT CLINICAL HISTORY: INR 1.52, TB 2.0 FINDINGS: RIGHT UPPER QUADRANT ULTRASOUND Sonographic images of the right upper quadrant were obtained. The pancreas is partially obscured.The liver has an unremarkable appearance. The gallbladder is absent. The common duct measures 3 mm. Limited images of the right kidney are normal. There is a small right pleural effusion. IMPRESSION: Small right pleural effusion. Reviewed, Interpreted and Dictated by Gerry Ospina III, MD Transcribed by Ese Koehler Authenticated and [facility]
--- NOTE | 2023-08-27 11:29 | PC.NURSE ---
COURTESY NOTE: rounded on pt, pt denied use of any assistance at this time. call light within reach.
--- NOTE | 2023-08-27 11:35 | PC.NURSE ---
Pt spoke with MD Hill and has changed her code status to full code
--- NOTE | 2023-08-27 13:24 | EXP.DC.SUM ---
General Admission date:: 08/26/23 Discharge date: 08/27/23 HPI HPI HPI: This is a 88-year-old female wth a PMHx of A-fib on Xarelto, hypertension, hyperlipidemia, CHF on diuretics, PPM in situ, presenting with left lower extremity hematoma. She struck her left lower extremity with a car door around last thursday, been wrapped since that time. Today, she took the wrap off while she was at the restaurant at lunchtime, and got significantly worse, with rapidly enlarge, so she called EMS. Pain is severe in intensity, made worse with bearing weight and direct pressure. Not made worse with active or passive range of motion. Patient denies loss of motor function. Hospital Course Hospital Course Hospital Course: 88-year-old female wth a PMHx of A-fib on Xarelto, hypertension, hyperlipidemia, CHF on diuretics, PPM in situ, presenting with trauma induced left lower extremity hematoma. It occurred approximately 4 days ago, with rapidly enlargement today, after she released her wrap/bandage. CTA of the extremity was obtained with significant size superficial hematoma with identified active extravasation. Problems addressed as follows: Large left lower leg hematoma Chronically anticoagulated factor Xa inhibitor (Xarelto) Chronic venous stasis Varicose veins Peripheral vascular disease Trauma identified Orthopedic consultation not available at our facility CTA LLE reviewed with hematoma 11 x 8 x 2 cm with extravasation of contrast noted Kerlex with loose awa wrap and leg elevation PT/wound care consult Holding Xarelto therapy and transition to Eliquis as outpatient Holding antiplatelet therapy Statin therapy Routine lower extremity assessments including doppler of distal pulses CPK evaluations Routine lab (CBC) and inflammatory marker evaluation Fall precautions Anticipate transition of care to tertiary care facility Transaminitis Elevated INR Ultrasound of liver Trend LFTs Hepatitis panel Atrial fibrillation Telemetry monitoring Beta-marita therapy Calcium channel marita therapy Digoxin therapy Holding Xarelto and transition to Eliquis as outpatient Chronic HFpEF Echocardiogram (08/17/2023) with EF 55%, grade 2 diastolic dysfunction, severe TR Loop diuretic therapy Beta-marita therapy Aldosterone antagonist therapy Hypothyroidism Levothyroxine replacement therapy VTE prophylaxis: Anticoagulation risks noted CODE STATUS: Full code POA: Granddaughter-Vanessa The patient is hospitalized day 1 with above diagnoses complicated by her advanced age and mobility concerns. Case management is assisting with next site of care which is a expected to be tertiary care hospital for Vascular surgery evaluation. Case management is assisting with transportation needs. Barriers to discharge currently include bed availability at receiving tertiary care facility. Expected day of discharge is today pending bed availability. I spent 35 minutes in [id number] time with the patient, granddaughter at bedside and nursing staff concerning the discharge process. We discussed the admitting diagnoses and hospital course. We discussed identified concerns for compartment syndrome, large hematoma and patient's desire to transition her care for higher level of services. We reviewed inpatient studies and imaging. The patient voiced understanding on the importance of follow-up with her local primary care provider and specialist(s) on discharge from tertiary [facility]. The patient plans to be compliant with the medication regimen prescribed and follow-up appointments. Her care will be transition to [facility] in [facility]. Exam Data for Last 24 hours Vital signs and Labs for Last 24 Hours: Temp Pulse Resp BP Pulse Ox O2 Del Method O2 Flow Rate 97.5 F L 70 17 112/60 96 Room Air 2 08/27/23 08:00 08/27/23 08:00 08/27/23 08:00 08/27/23 08:00 08/27/23 08:00 08/27/23 13:00 08/27/23 07:00 Laboratory Results - last 2
--- NOTE | 2023-08-27 13:34 | PC.NURSE ---
Report called to [facility]. Ambulance service notified for need of service. Pt c/o pain to LLE. Pedal pulse to LLE per doppler. MD and PT evaluated DSG and replaced it. EMS arrived to take pt to [facility].
[2023-08-28 13:08] LABS: HBsAg Screen Negative (Negative); HCV Ab Non Reactive (Non Reactive); Hep A Ab, IGM Negative (Negative); Hep B Core Ab, IgM Negative (Negative)
== END 2023-08-27 13:30 | disposition short-term general hospital (02) ==
LOC: ER 17:18 → 2ND 20:04
PROVIDERS: Nurse Practitioner Family; Admitting Provider Family Medicine; Emergency Provider Emergency Medicine; PCP Family Medicine; Visit Provider Family Medicine
DX: S80.12XA Contusion of left lower leg, initial encounter (principal); W22.8XXA Striking against or struck by other objects, initial encounter; I48.91 Unspecified atrial fibrillation; Z79.899 Other long term (current) drug therapy; I11.0 Hypertensive heart disease with heart failure; I50.32 Chronic diastolic (congestive) heart failure; E78.2 Mixed hyperlipidemia; Z79.01 Long term (current) use of anticoagulants; Z95.0 Presence of cardiac pacemaker; E03.9 Hypothyroidism, unspecified; R53.1 Weakness
CPT/HCPCS: 36415; 73706; 76705; 80053; 80074; 83735; 85025; 85610; 85730; 99285; G0378; J0131; J2405; Q9967

== ENCOUNTER 2024-04-13 11:00 | Outpatient (RCR) | payer MEDICARE, SELFPAY ==
--- NOTE | 2024-01-13 08:47 | HMH.PTOPWND ---
Rehab Outpt Wound Evaluation Rehab OP Wound Evaluation Start: 01/13/24 07:58 Freq: Status: Active Protocol: Document 01/13/24 08:34 CHUCHO (Rec: 01/13/24 08:46 PHOAMISHA [id number]) E-signed By Byron Del Cid, PT Subjective/History History History This is the initial PT eval for Vanessa Chávez, 88 yowf who presents with L lower leg chronic wound x ~ 4 mos. SHe initially injured her leg by hitting it with a car door with a resulting small hematoma. SHe kept compression on the area for several days, but when she removed the compression, the hematoma significantly enlarged and she required hospitalization. She most recently hasbeen treated by home health with daily dressing changes of petroleum gauze with gauze roll secondary. She also had a recent bout of cellulitis treated with oral abx. She reports dressing changes are painful, but otherwise she has minimal discomfort. She has PMH of A-fib on Xarelto, hypertension, hyperlipidemia, CHF on diuretics, PPM in situ, CVI. Subjective Subjective Currently no pain in the L LE. 1+ pitting edema noted to L lower leg. Significant blue telangiectasis throughout the L foot and ankle. New diagnosis of cancer in past 12 No months? Wound Eval Wound Left Lower Leg Wound Type Stasis Ulcer Is This a Chronic Wound Yes Wound Length (cm) 16.0 Wound Width (cm) 22.0 Wound Depth (cm) 0.1 Wound Bed Appearance Beefy Red,Mallow,White,Shiny, Peeling Skin Percentage Granulated (%) 75 Wound Margins Description Indistinct Surrounding Tissue Appearance Bright Red Edema Type Pitting Edema Degree 1+ Query Text:1+ Trace, Barely Detectable, Rebound 15-30 seconds 2+ Moderate, Slight Indentation, Rebound 10-20 seconds 3+ Deep, Deeper Indentation, Rebound > 30 seconds 4+ Very Deep, Rebound > 60 seconds Edema Appearance Shiny,Puffy,Red Drainage Description Serous Drainage Amount Moderate Wound Topical Solution/Irrigant Saline Irrigant Primary Dressing contact layer Comment versatel one, puracol Wound Secondary Dressing Type Absorbant Pad,Gauze Roll/Wrap, Adhering Gauze Roll Comment optilock, 2-layer calamine compression wrap system. Wound Debridement Method Forceps,Gauze,Mechanical Wound Debridement Amount of Tissue Minimal Removed Dressing Change Patient Tolerance Tolerated Well Wound Problems/Impairments Impairments Problems/Impairmments Palpation Tenderness,Impaired Gait Pattern,Impaired Walking, Impaired Standing,Impaired Shower/Bathing,Impaired Household Care,Increased Edema ,Lymphedema Present,Wound Care Needs,Subjective C/O Pain, Impaired Self Care/Self Management Prognosis Rehab Potential Good Clinical Impression Consistent with Diagnosis Yes Short Term Goals Number of Weeks 4 Decreased Palpation Tenderness Yes: 1/4 L lower leg Decrease Edema Yes: No pitting edema Decrease Wound Area Yes: by 25% Assisted Goals Number of Weeks 6-8 Decreased Palpation Tenderness Yes: 0/4 L lower leg Decrease Lymphedema Yes Decrease Wound Area Yes: by 75% Patient to be Ind w/ HEP Yes Patient to be Ind w/ Home Wound Care/ Yes Dressing Changes Patient to Understand Lymphedema Yes Treatment and Exercises Outpatient Therapy Plan of Care Treatment Plan May Include Therapeutic Exercise Including Home Yes Exercise Program Manual Therapy Techniques Yes Neuromuscular Re-education Yes Therapeutic Activities to Return to Yes Previous Functional/Work Level ADL/Self Care Education Yes Orthotics/Bracing/Splinting Yes Manual Lymphatic Drainage Yes Wound Care Yes Eval/Re-Eval Yes Frequency Times per week 2 Duration Number of Weeks 6-8 Addendums This patient is a candidate for social No or vocational rehab? Patient/Guardian verbally acknowledges Yes understanding of treatment program and consents to further treatment? Patient/Guardian verbally acknowledges Yes understanding of diagnosis, prognosis and goals for treatment? Eval Complexity PT Charges 92336 - High Complexity PHYSICIAN CERTIFICATION: I certify the specified therapy services for Vanessa Chávez are required, authorized, and reviewed every 30 days.
--- NOTE | 2024-02-09 11:41 | HMH.RHREAS ---
Rehab Reassessment Rehab OP Re-assessment Start: 01/13/24 07:58 Freq: Status: Active Protocol: Document 02/09/24 11:36 [email or web address] (Rec: 02/09/24 11:41 PHORKAIT [id number]) E-signed By Byron Del Cid, PT Rehab Re-assessment Subjective Subjective Pt continues to have pain with dressing changes, but not as bad as previously. She reports feeling better overall with less swelling and better able to ambulate. Objective Objective Notes L marques wound: L= 17.0 cm, W= 15.0 cm, D= 0.1 cm. Wound 95% healthy granulation tissue and healed by 28% of total surface area. TTP: 11/19 L lower leg Edema: 1+ pitting edema to L lower leg. Assessment Progress Assessment Progressing as Expected Assessment Notes Pt has shown significant reduction in L LE wound since initial eval. She is also showing improved functional mobility. She does continue to need skilled intervention to return to prior level of function. Patient goals met ST,[address] LT,2,3,4,5,6 Plan Plan Continue per initial POC with dressing changes ans appropriate for wound healing. Frequency of Therapy 2-3 x/wk Duration of therapy 6-8 wks. Time and Billing Re-Eval Time 12 Re-Eval Billing Units 0 PHYSICIAN CERTIFICATION: I certify the specified therapy services for Vanessa Chávez are required, authorized, and reviewed every 30 days.
--- NOTE | 2024-03-11 11:49 | HMH.RHREAS ---
Rehab Reassessment Rehab OP Re-assessment Start: 01/13/24 07:58 Freq: Status: Active Protocol: Document 03/11/24 11:44 CHUCHO (Rec: 03/11/24 11:48 PHOAMISHA [id number]) E-signed By Byron Del Cid, PT Rehab Re-assessment Subjective Subjective Pt reports less pain overall and she is ambulating much better now. She continues to have discomfort with dressing changes, but this is also improved. Objective Objective Notes L marques wound: L= 10.5 cm, W= 4 .5 cm, D= 0.1 cm. Wound 99% healthy granulation tissue. TTP: 11/19 L lower leg Edema: 1+ pitting edema to L lower leg. Assessment Progress Assessment Progressing as Expected Assessment Notes Pt has shown significnat improvements in overall wound surface area. SHe does continues to have increases soreness and edema that limit her mobility somewhat. Patient goals met ST,[address] LT,2,3,4,5,6 Plan Plan Continue per initial POC with dressing changes ans appropriate for wound healing. Frequency of Therapy 2-3 x/wk Duration of therapy 6-8 wks. Time and Billing Re-Eval Time 10 Re-Eval Billing Units 0 PHYSICIAN CERTIFICATION: I certify the specified therapy services for Vanessa Chávez are required, authorized, and reviewed every 30 days.
== END 2024-04-13 12:00 | disposition home or self-care (01) ==
LOC: PT 11:00
PROVIDERS: Visit Provider Nurse Practitioner Family
DX: M79.605 Pain in left leg (principal); S81.802D Unspecified open wound, left lower leg, subsequent encounter
CPT/HCPCS: 29580; 97140; 97163; 97164; 97597; 97598; 97606

== ENCOUNTER 2024-09-13 12:38 | Outpatient (CLI) | payer MEDICARE, SELFPAY ==
--- NOTE | 2024-09-13 12:44 | XR_ITS ---
PROCEDURE INFORMATION: Exam: XR Left Tibia and Fibula Exam date and time: 09/13/2024 12:54 PM Age: 89 years old Clinical indication: Pain; Ankle and lower leg; Left; Additional info: Cellulitis of left leg TECHNIQUE: Imaging protocol: Radiologic exam of the left tibia and fibula. Views: 2 views. COMPARISON: CT ANGIO LE LT 08/26/2023 6:15 PM FINDINGS: Bones/joints: Total knee replacement without evidence of complication. Degenerative changes in the ankle There is no evidence of acute fracture.There is no evidence of malalignment or dislocation. Soft tissues: Soft tissue swelling of the leg IMPRESSION: No acute process
== END 2024-09-13 23:59 | disposition home or self-care (01) ==
LOC: RAD 12:39
PROVIDERS: PCP Internal Medicine Adolescent Medicine; Visit Provider Nurse Practitioner Family
DX: L03.116 Cellulitis of left lower limb (principal)
CPT/HCPCS: 73590

== ENCOUNTER 2024-10-21 15:44 | Emergency (ER) | payer MEDICARE, SELFPAY ==
[2024-10-21 15:45] VITALS: BP 148/78; PULSE 68; RESP 20; TEMP 36.6; O2SAT 96; BMI 23.5
--- NOTE | 2024-10-21 15:53 | ED_ITS ---
<Statement entered by Eddie Jensen MD - 10/21/24 23:22> I was consulted by the JANAY, and we discussed the complexity of the problems being addressed. I approved the treatment and management plan for this patient's care in the emergency department, thus performing a substantive portion of the medical decision making. Eddie Jensen MD, ARNOLD, FACEP Discharge Plan Disposition Patient Disposition: Home, Self-Care Condition: Good Prescriptions Prescriptions: No Action clonazepam [Klonopin] 0.5 mg tablet 0.5 mg PO TID Patient Comments: Pt states she only takes half of one occassionally furosemide 40 mg tablet See Rx Instructions .ROUTE .COMPLEX Qty: 180 4RF Dose Instruction: TAKE ONE TABLET BY MOUTH TWICE DAILY FOR HIGH BLOOD PRESSURE Rx Instructions: TAKE ONE TABLET BY MOUTH TWICE DAILY FOR HIGH BLOOD PRESSURE Xarelto 20 mg tablet 20 mg PO DAILY Qty: 30 5RF Rx Instructions: must administer with evening meal digoxin 125 mcg (0.125 mg) tablet See Rx Instructions .ROUTE .COMPLEX Qty: 30 3RF Dose Instruction: TAKE ONE TABLET BY MOUTH ON thursday, thursday, thursday, , AND thursday Rx Instructions: TAKE ONE TABLET BY MOUTH ON thursday, thursday, thursday, , AND thursday metoprolol succinate 200 mg tablet extended release 24 hr See Rx Instructions .ROUTE .COMPLEX Qty: 180 3RF Dose Instruction: TAKE ONE TABLET BY MOUTH TWICE DAILY FOR heart rhythm Rx Instructions: TAKE ONE TABLET BY MOUTH TWICE DAILY FOR heart rhythm spironolactone 25 mg tablet See Rx Instructions .ROUTE .COMPLEX Qty: 90 3RF Dose Instruction: TAKE ONE TABLET BY MOUTH EVERY DAY Rx Instructions: TAKE ONE TABLET BY MOUTH EVERY DAY rosuvastatin 10 mg tablet See Rx Instructions .ROUTE .COMPLEX Qty: 90 3RF Dose Instruction: TAKE ONE TABLET BY MOUTH EVERY DAY FOR cholesterol Rx Instructions: TAKE ONE TABLET BY MOUTH EVERY DAY FOR cholesterol potassium chloride 10 mEq capsule, extended release 10 meq PO BID Qty: 90 1RF cholecalciferol (vitamin D3) 25 mcg (1,000 unit) capsule See Rx Instructions .ROUTE .COMPLEX Qty: 30 3RF Dose Instruction: TAKE ONE CAPSULE BY MOUTH EVERY DAY Rx Instructions: TAKE ONE CAPSULE BY MOUTH EVERY DAY verapamil 120 mg capsule,ext rel. pellets 24 hr See Rx Instructions .ROUTE .COMPLEX Qty: 30 3RF Dose Instruction: TAKE ONE CAPSULE BY MOUTH EVERY DAY Rx Instructions: TAKE ONE CAPSULE BY MOUTH EVERY DAY aspirin 81 MG tablet,delayed release (DR/EC) 81 mg PO DAILY levothyroxine 200 MCG tablet 200 mcg PO DAILYDM PreserVision AREDS 2,148 mcg-113 mg-45 mg-17.4mg Tablet 1 tab PO BID TruBiotics 2 billion cell Capsule 1 cap PO DAILY Referrals Follow up/Referrals: Demetrio Mendosa MD [Primary Care Provider] - See instructions Activity Restrictions/Add. Instructions Additional Instructions/Restrictions: As discussed and displayed on bedside ultrasound you have a superficial hematoma but given the history of expansion and significant wound issues on your left lower extremity we had a risk-benefit discussion regarding holding your anticoagulation for a few days which does have some risk with it but is reasonable from my standpoint. Keep a petroleum based gauze on this and a pressure dressing for the next 12 to 24 hours and then subsequently I would keep a nonocclusive dressing on this until it is fully healed. Return with any significant worsening of her symptoms. Clinical Impressions Clinical Impression: Hematoma of lower leg Print Language Print Language: Yoruba Discharge ED Provider: Eddie Jensen General Adult HPI <KURT Monet - Last Filed: 10/21/24 18:45> General Chief complaint: Recheck/Abnormal Lab/Rx Stated complaint: AO 10/21/21 1444 injury right leg Time Seen by Provider: 10/21/24 15:53 History of Present Illness HPI narrative: Patient presents for evaluation of a hematoma. Patient had an injury striking her medial aspect of her right lower extremity in the medial calf. She developed a hematoma that is developed over the last hour or so. Patient is concerned is because she had a hematoma on the left lower extremity previously that ended up with skin breakdown requiring chronic wound care management. Patient currently is neurovascular intact distally without any evidence of neurovascular compromise including palpable pulses no edema with full range of motion. Patient is on a blood thinner due to chronic rate controlled atrial fibrillation. Related Data Home Medications ?Medication ?Instructions ?Recorded ?Confirmed aspirin 81 mg tablet,delayed 81 mg PO DAILY Heart [facility] 08/12/18 08/27/23 release levothyroxine 200 mcg tablet 200 mcg PO DAILYDM thyroid 02/28/22 08/26/23 clonazepam 0.5 mg tablet (Klonopin) 0.5 mg PO TID Anxiety 03/02/23 08/27/23 Lactobacillus 1 cap PO DAILY GI health 08/26/23 08/27/23 acidophilus-Bifidobac.animalis 2 billion cell capsule (TruBiotics) vitamins A,C,Q-bqdt-ziumye 2,148 1 tab PO BID 08/26/23 08/26/23 mcg-113 mg-45 mg-17.4 mg tablet (PreserVision AREDS) Previous Rx's ?Medication ?Instructions ?Recorded furosemide 40 mg tablet See Rx Instructions .Route 11/24/23 .COMPLEX #180 tabs rivaroxaban 20 mg tablet (Xarelto) 20 mg PO DAILY #30 tabs 04/20/24 digoxin 125 mcg (0.125 mg) tablet See Rx Instructions .Route 05/23/24 .COMPLEX #30 tabs metoprolol succinate 200 mg See Rx Instructions .Route 05/23/24 tablet,extended release 24 hr .COMPLEX #180 tabs spironolactone 25 mg tablet See Rx Instructions .Route 06/20/24 .COMPLEX #90 tabs rosuvastatin 10 mg tablet See Rx Instructions .Route 07/15/24 .COMPLEX #90 tabs potassium chloride 10 mEq 10 meq PO BID Supplement #90 caps 08/22/24 capsule,extended release cholecalciferol (vitamin D3) 25 See Rx Instructions .Route 09/20/24 mcg (1,000 unit) capsule .COMPLEX #30 ea verapamil 120 mg 24 hr See Rx Instructions .Route 09/20/24 capsule,extended release .COMPLEX #30 caps Allergies Allergy/AdvReac Type Severity Reaction Status Date / Time ciprofloxacin (From CIPRO) Allergy Mild I-RASH Verified 08/19/23 13:26 [facility] <KURT Monet - Last Filed: 10/21/24 18:45> [facility] Disclaimer: The information contained in this section may have been updated after the patient was seen, as this information can be updated by other users. Medical History (Updated 10/21/24 @ 16:46 by Eddie Jensen MD) Chills Hypokalemia Pleural effusion on right Lung collapse Elevated diaphragm Abnormality of lung on CXR Pleural effusion on right Acute respiratory failure with hypoxia Acute on chronic diastolic (congestive) heart failure Shortness of Breath Hyperlipidemia Bleeding from open wound of chest wall Combined congestive systolic and diastolic heart failure OZZIE (acute kidney injury) Duodenitis SIRS (systemic inflammatory response syndrome) UTI (urinary tract infection) Congestive heart failure Surgical History (Updated 08/31/23 @ 00:00 by Levy Blunt) History of colonoscopy Hx of cholecystectomy Cardiac pacemaker in situ Family History Other Diabetes Social History (Updated 08/26/23 @ 21:35 by Mile Godfrey RN) Smoking Status: Never smoker alcohol intake: never substance use type: denies use current occupational status: retired Travel in the last 8 weeks: None household members: none housing: house caffeine: No Other Medical History Have you received the Flu Vaccine for this season: No Have you received the Pneumonia Vaccine: No <KURT Monet - Last Filed: 10/21/24 18:45> ROS Obtained: Yes Systems reviewed as appropriate & no additional complaints except as documented Physical Exam <KURT Monet - Last Filed: 10/21/24 18:45> General General appearance: alert and in no apparent distress Respiratory Respiratory exam: Present normal lung sounds bilaterally Cardiovascular Cardiovascular exam: Present regular rate Neurological Exam Neurological exam: Present alert and oriented X3 Medical Decision Making <KURT Monet - Last Filed: 10/21/24 18:45> Medical Records Medical records reviewed: Yes I reviewed the patient's medical records. Screening: Per USPSTF and CDC recommendations, given the prevalence of disease in our region, it is our hospital?s policy to screen for HIV and viral Hepatitis for all patients aged 18 and over and those with ongoing risk factors. Leon Inquiry Pt receiving controlled substance: No Vital Signs: 10/21/24 15:45 10/21/24 16:12 10/21/24 16:51 Temperature 97.9 F 98.0 F Temperature Source Oral Oral Pulse Rate 69 71 Pulse Rate [Left Radial] 68 Respiratory Rate 20 18 Blood Pressure 128/82 Blood Pressure [Right Arm] 148/78 H Blood Pressure Mean [Right Arm] 101 Blood Pressure Source Automatic Cuff Blood Pressure Position Sitting 02 Sat by Pulse Oximetry 96 95 Oxygen Delivery Method Room Air Room Air Lab Data Lab results reviewed: Yes I reviewed the patient's lab results. Orders (Tests/Meds): ORDERS Category Date Time Status POCUS Point of Care (ER Only) Stat Exams 12/06/24 16:16 Completed Medical Decision Narrative: In summary patient is a 89-year-old female who presents to the emergency department for evaluation of right lower extremity hematoma. Patient is hemodynamically stable upon arrival, afebrile. Physical exam is remarkable for a 3 to 4 cm superficial hematoma in the medial aspect of her right calf there is no ecchymosis distally patient is neurovascularly intact distally.. Differential diagnosis includes simple hematoma versus expanding hematoma. Initial workup will be conducted with POCUS. Initial interventions were considered however will await [place] for now. Initial workup reviewed by me and POCUS only shows a superficial hematoma no active extravasation.. Given this patient reassured that there is no evidence of active bleeding currently. Interactive discussion was had with the patient with Dr. Jensen regarding discontinuation of her anticoagulation. We did not recommend discontinuation and left that up to be a patient decision between her self retail pricing coordinator and primary care. Thus patient is appropriate for discharge after compression dressing applied. Patient to follow-up with PCP within [address] Jensen working with Valeria this particular patient did a bedside ultrasound which demonstrated a superficial hematoma we had an extensive discussion regarding risk and benefits of holding anticoagulation however given the extensive wound issues she had a left lower extremity I told her the best way to prevent this from worsening and breaking the skin would be to do a pressure dressing and to hold her anticoagulation for 1 to 2 days although she does understand there is a risk of stroke if she is to hold this. She understood this and likely will proceed with that I performed a bedside ultrasound demonstrating to her that there is no deeper involvement we placed petroleum based gauze and a pressure dressing on top of this wound management was discussed return precautions emphasized and patient was discharged in stable condition. <Eddie Jensen MD - Last Filed: 10/21/24 16:48> Vital Signs: 10/21/24 15:45 10/21/24 16:12 10/21/24 16:51 Temperature 97.9 F 98.0 F Temperature Source Oral Oral Pulse Rate 69 71 Pulse Rate [Left Radial] 68 Respiratory Rate 20 18 Blood Pressure 128/82 Blood Pressure [Right Arm] 148/78 H Blood Pressure Mean [Right Arm] 101 Blood Pressure Source Automatic Cuff Blood Pressure Position Sitting 02 Sat by Pulse Oximetry 96 95 Oxygen Delivery Method Room Air Room Air Orders (Tests/Meds): ORDERS Category Date Time Status POCUS Point of Care (ER Only) Stat Exams 10/21/24 16:16 Completed Medical Decision Narrative: In summary patient is a [age, sex] who presents to the emergency department for evaluation of [complaint]. Patient is [hemodynamically stable/unstable] upon arrival, [febrile/afebrile]. [Unremarkable physical exam, nonfocal exam versus focal remarkable exam]. Differential diagnosis includes [DDx]. Initial workup will be conducted with [hematologic labs, imaging, respiratory swab, describe workup]. Initial interventions include [crystalloid bolus, medications, p.o. challenge, etc.] initial workup reviewed by me [hematologic labs are remarkable for... Imaging remarkable for... Urinalysis remarkable for]. Upon repeat evaluation [patient had acceptable resolution of symptoms, had persistent pain for which additional interventions were conducted (describe interventions), tolerated p.o., was ambulatory, etc.]. Given this [patient is appropriate for discharge at this time and will be discharged with a prescription for... The case was discussed with hospital medicine regarding management and they will admit the patient their service for continued evaluation at this time... Etc.] Places where you can increase complexity: I informally interpreted the patient's chest x-ray or CT read and is remarkable for... Documenting what the monitor worker shows with rate and rhythm Consideration of test but deferring. Ex: I considered chest x-ray on this patient however given that they have no oxygen requirement and are clear to auscultation all lung yap will be deferred. Social determinants of health: Given that patient is undomiciled increases complexity. Given that patient has polysubstance abuse compounds all aspects of care This is Dr. Jensen working with Valeria this particular patient did a bedside ultrasound which demonstrated a superficial hematoma we had an extensive discussion regarding risk and benefits of holding anticoagulation however given the extensive wound issues she had a left lower extremity I told her the best way to prevent this from worsening and breaking the skin would be to do a pressure dressing and to hold her anticoagulation for 1 to 2 days although she does understand there is a risk of stroke if she is to hold this. She understood this and likely will proceed with that I performed a bedside ultrasound demonstrating to her that there is no deeper involvement we placed petroleum based gauze and a pressure dressing on top of this wound management was discussed return precautions emphasized and patient was discharged in stable condition. Procedures <J Jordan Jensen MD - Last Filed: 10/21/24 16:48> Miscellaneous Procedure Procedure Performed: Limited soft tissue ultrasound Indication: Soft tissue swelling Identified structures: Location: Medial aspect of the right lower extremity Findings: Superficial soft tissue hematoma measuring 4 cm in length by half a centimeter in depth no evidence of deeper involvement Impression: Hematoma as above Images were saved to permanent archive The study was technically adequate Soft Tissue CPT Codes: CPT Neck: 24043-41 CPT Upper extremity: 47488-56 CPT Axilla: 06361-16 CPT Chest wall: 43937-61 CPT Breast: 43668-71-JU/LT (complete), 43176-34-PD/LT (limited), CPT Upper Back: 68474-76 CPT Lower Back: 26467-62 CPT Abdominal Wall: 46724-77 CPT Pelvic Wall: 48003-96 CPT Lower Extremity: 10234-10 CPT Other Soft Tissue: 22291-87 This study was performed by me, and I personally interpreted all images/videos. Based on my clinical judgement, these images were adequate and did not necessitate further imaging. Critical Care <KURT Monet - Last Filed: 10/21/24 18:45> Critical Care Time Critical Care Time: No
[2024-10-21 16:12] VITALS: PULSE 69; O2SAT 95
[2024-10-21 16:51] VITALS: BP 128/82; PULSE 71; RESP 18; TEMP 36.7; O2SAT 95
== END 2024-10-21 16:51 | disposition home or self-care (01) ==
PROVIDERS: Emergency Provider Student in an Organized Health Care Education/Training Program; PCP Internal Medicine Adolescent Medicine
DX: S80.10XA Contusion of unspecified lower leg, initial encounter (principal); R22.42 Localized swelling, mass and lump, left lower limb
CPT/HCPCS: 99283

== ENCOUNTER 2024-11-11 11:00 | Outpatient (RCR) | payer MEDICARE, SELFPAY ==
--- NOTE | 2024-08-15 11:42 | HMH.PTOPWND ---
Rehab Outpt Wound Evaluation Rehab OP Wound Evaluation Start: 08/15/24 11:26 Freq: Status: Active Protocol: Document 08/15/24 11:27 CHUCHO (Rec: 08/15/24 11:41 CHUCHO [id number]) E-signed By Byron Del Cid, PT Subjective/History History History This is the initial PT wound care eval for Vanessa Chávez, 88 yowf who presents with chronic L lower leg wound and new onset of a secondary lower leg woundc~3 wks ago. She reports no known injury prior to new wound onset. Maybe I scratched my leg, but I don't remember anything. She has no c/o pain at rest currently, but is tender to palpation in the sarah-wound skin. She has PMH of CHF with pacemaker and CVI. Subjective Subjective Pain currently 0/10. Edema: 2+ pitting edema to the L lower leg. TTP: 2/4 sarah wound skin. Minimal blanchable erythema noted. New diagnosis of cancer in past 12 No months? Wound Eval Wound Left Lower Medial Marques Wound Type Abrasion Is This a Chronic Wound Yes Wound Length (cm) 1.8 Wound Width (cm) 1.8 Wound Depth (cm) 0.1 Wound Bed Appearance Yellow,Eschar Percentage of Eschar (Yellow) (%) 100 Wound Margins Description Well Defined Surrounding Tissue Appearance [place] Edema Type Pitting Edema Degree 2+ Query Text:1+ Trace, Barely Detectable, Rebound 15-30 seconds 2+ Moderate, Slight Indentation, Rebound 10-20 seconds 3+ Deep, Deeper Indentation, Rebound > 30 seconds 4+ Very Deep, Rebound > 60 seconds Drainage Description Serous Drainage Amount Small Primary Dressing Silver Dressing Comment opticell Ag Wound Secondary Dressing Type Composite,Gauze Roll/Wrap, Adhering Gauze Roll Comment optifoam thin Wound Debridement Method Sharps,Forceps,Gauze, Mechanical Wound Debridement Amount of Tissue Moderate Removed Dressing Change Patient Tolerance Tolerated Well Left Upper Anterior Marques Wound Type Abrasion Is This a Chronic Wound Yes Wound Length (cm) 4.0 Wound Width (cm) 3.8 Wound Depth (cm) 0.1 Wound Bed Appearance Yellow Percentage of Eschar (Yellow) (%) 100 Wound Margins Description Well Defined Surrounding Tissue Appearance [place] Edema Type Pitting Edema Degree 2+ Query Text:1+ Trace, Barely Detectable, Rebound 15-30 seconds 2+ Moderate, Slight Indentation, Rebound 10-20 seconds 3+ Deep, Deeper Indentation, Rebound > 30 seconds 4+ Very Deep, Rebound > 60 seconds Drainage Description Serous Drainage Amount Small Primary Dressing Silver Dressing Comment opticell Ag Wound Secondary Dressing Type Composite,Gauze Roll/Wrap, Adhering Gauze Roll Comment optifoam thin Wound Debridement Method Sharps,Forceps,Gauze, Mechanical Wound Debridement Amount of Tissue Moderate Removed Wound Debridement Result Healthy Tissue Revealed Dressing Change Patient Tolerance Tolerated Well Wound Problems/Impairments Impairments Problems/Impairmments Palpation Tenderness,Impaired Walking,Impaired Standing, Impaired Shower/Bathing, Impaired Household Care, Increased Edema,Lymphedema Present,Wound Care Needs, Subjective C/O Pain,Impaired Self Care/Self Management Prognosis Rehab Potential Good Comment Skilled therapy is indicated to reduce overall wound surface area and return pt to PLOF. Clinical Impression Consistent with Diagnosis Yes Short Term Goals Number of Weeks 2 Decreased Palpation Tenderness Yes: 1/4 L marques Decrease Edema Yes: 1+ pitting edema L LE Decrease Wound Area Yes: by 25% Medical Imaging Technician Goals Number of Weeks 4 Decreased Palpation Tenderness Yes: 0/4 L marques Decrease Edema Yes: no pitting edema L LE Decrease Wound Area Yes: by 75% Patient to be Ind w/ HEP Yes Patient to be Ind w/ Home Wound Care/ Yes Dressing Changes Outpatient Therapy Plan of Care Treatment Plan May Include Therapeutic Exercise Including Home Yes Exercise Program Manual Therapy Techniques Yes Neuromuscular Re-education Yes Therapeutic Activities to Return to Yes Previous Functional/Work Level ADL/Self Care Education Yes Orthotics/Bracing/Splinting Yes Manual Lymphatic Drainage Yes Wound Care Yes Eval/Re-Eval Yes Frequency Times per week 1-2 Duration Number of Weeks 4 Addendums This patient is a candidate for social No or vocational rehab? Patient/Guardian verbally acknowledges Yes understanding of treatment program and consents to further treatment? Patient/Guardian verbally acknowledges Yes understanding of diagnosis, prognosis and goals for treatment? Eval Complexity PT Charges 96527 - High Complexity PHYSICIAN CERTIFICATION: I certify the specified therapy services for Vanessa Chávez are required, authorized, and reviewed every 30 days.
--- NOTE | 2024-09-13 16:12 | HMH.RHREAS ---
Rehab Reassessment Rehab OP Re-assessment Start: 08/15/24 11:26 Freq: Status: Active Protocol: Document 09/13/24 16:06 ARYAJhonKAIT (Rec: 09/13/24 16:11 PHORKAIT [id number]) E-signed By Byron Del Cid PT Rehab Re-assessment Subjective Subjective Pt reports she feels increased pain, described as a burning sensation, throughout her L lower leg. She reports pain 8/ 10 at worst. She continues to feel swollen and tender to palpation. Objective Objective Notes L superior anterior marques wound : L= 3.0 cm, W= 5.0 cm, D= 0.1 cm. 1% wound surface area healed vs initial eval. Total area of inflammation of tissue on L anterior marques is 11.0 cm x 10.0 cm. Edema: 2+ pitting edema throughout L lower leg. TTP: 2/4 throughout L lower leg with increased erythema. Assessment Progress Assessment Slower Than Expected Assessment Notes Pt has made very minimal progress towards goals at this time with increased pain and no reduction in edema. She continues to need skilled therapy to reduce overall wound size, reduce edema, and return to PLOF. Patient goals met ST/3 LT/5 Plan Plan Continue per initial POC. Frequency of Therapy 2-3 x/wk Duration of therapy 4 wks Time and Billing Re-Eval Time 11 Re-Eval Billing Units 1 PHYSICIAN CERTIFICATION: I certify the specified therapy services for Vanessa Chávez are required, authorized, and reviewed every 30 days.
--- NOTE | 2024-10-12 12:24 | HMH.RHREAS ---
Rehab Reassessment Rehab OP Re-assessment Start: 08/15/24 11:26 Freq: Status: Active Protocol: Document 10/12/24 12:19 CHUCHO (Rec: 10/12/24 12:24 PHORKAIT [id number]) E-signed By Byron Del Cid, PT Rehab Re-assessment Subjective Subjective Pt reports she continues to have increased itching on her L lower leg, but less pain. She remains concerned about her wounds not being completely healed yet. Objective Objective Notes L superior anterior marques wound : L= 1.3 cm, W= 1.7 cm, D= 0.1 cm. Wound now moved somewhat toward the medial side of her L calf. Edema: 1+ pitting edema throughout L lower leg. TTP: 1/4 throughout L lower leg with increased erythema. Assessment Progress Assessment Progressing as Expected Assessment Notes Pt has shown reduction in overall wound surface area and decreased overall edema in the L lower leg. She continues to need skilled therapy to reduce overall wound size, reduce edema, and return to PLOF. [ End ] Patient goals met ST/3 LT/5 Plan Plan Continue per initial POC. Frequency of Therapy 2-3 x/wk Duration of therapy 4 wks Time and Billing Re-Eval Time 9 Re-Eval Billing Units 0 Charge for PT reassessment? No PHYSICIAN CERTIFICATION: I certify the specified therapy services for Vanessa Chávez are required, authorized, and reviewed every 30 days.
== END 2024-11-11 23:59 | disposition home or self-care (01) ==
LOC: PT 11:00
PROVIDERS: Visit Provider Nurse Practitioner Family
DX: R60.9 Edema, unspecified (principal); S81.802A Unspecified open wound, left lower leg, initial encounter
CPT/HCPCS: 29580; 87070; 87077; 87186; 87205; 97140; 97163; 97597; 97598

== ENCOUNTER 2025-08-22 08:43 | Emergency (ER) | payer MEDICARE, SELFPAY ==
[2025-08-22 08:49] VITALS: BP 156/90; PULSE 70; O2SAT 94
[2025-08-22 08:50] VITALS: BP 156/90; PULSE 70; RESP 14; TEMP 36.6; O2SAT 96; BMI 25.0
--- OUTSIDE RECORDS SUMMARY | 2025-08-22 08:55 | XMS_ITS | Clinical Summary ---
Author Organization [facility] ([place], [place], [place], [place]) Address [address] [place] [address] Care Team Providers Care Fire Officer Name Role Phone Demetrio Mendosa MD Primary Care Provider [phone] Allergies Active Allergy Reactions Criticality Noted Date Comments Ciprofloxacin Hives High 08/27/2023 Medications digoxin (LANOXIN) 0.125 MG tablet Take 1 tablet (125 mcg total) by mouth as directed Thursday, Thursday, Thursday, and Thursday. On Week only. Active furosemide (LASIX) 40 MG tablet Take 1 tablet (40 mg total) by mouth 2 (two) times daily. Active levothyroxine (SYNTHROID, LEVOTHROID) 200 MCG tablet Take 1 tablet (200 mcg total) by mouth Every morning on an empty stomach. Active metoprolol succinate (TOPROL-XL) 200 MG 24 hr tablet Take 1 tablet (200 mg total) by mouth daily. Active rosuvastatin (CRESTOR) 10 MG tablet Take 1 tablet (10 mg total) by mouth nightly. Active spironolactone (ALDACTONE) 25 MG tablet Take 1 tablet (25 mg total) by mouth daily. Active verapamiL (CALAN-SR) 120 MG ER tablet Take 1 tablet (120 mg total) by mouth daily. Active rivaroxaban (XARELTO) 20 mg tablet Take 1 tablet (20 mg total) by mouth daily with dinner. Active potassium chloride SA (K-DUR,KLOR-CON -M) 10 MEQ tablet Take 1 tablet (10 mEq total) by mouth 2 (two) times daily. Active cholecalciferol , vitamin D3, (Vitamin D3) 25 mcg (1,000 unit) capsule Take 1 capsule (1,000 Units total) by mouth daily. Active clonazePAM (KlonoPIN) 0.5 MG tablet Take 0.5 tablets (0.25 mg total) by mouth every night as needed (sleep). Max Daily Amount: 0.25 mg Active Active Problems Problem Noted Date Diagnosed Date Compartment syndrome of left lower extremity, initial encounter 08/27/2023 Compartment syndrome of foot, left, initial enco unter 08/27/2023 Social History Tobacco Use Types Packs/Day Years Used Date Smoking Tobacco: Never Smokeless Tobacco: Never Tobacco Cessation:Counseling Given: No Alcohol Use Standard Drinks/Week Comments Not Currently 0 (1 standard drink = 0.6 oz pur e alcohol) PRAPARE - Transportation Answer Date Re corded In the past 12 months, has l ack of transportation kept you from medical appointments or from getting medications? No 08/27/2023 Lack of Transportation (Non-Medical) Not on file 08/27/2023 Food Insecurity Answer Date Recorded Food run out past 12 months Not on file 11/16 Food did not last past 12 months Not on file 11/27/2023 Employment Answer Date Recorded Help finding and keeping a job Not on file 0 11/27/2023 Family and Community Support Answer Durga e Recorded Help with Day to Day Activities Not on file 11/27/2023 Feeling Lonely or Isolated Not on file 11/27 Educational Attainment Answer Date Inderjit rded Speak language other than Iranian at home Not on file 11/27/2023 Want help with school or training Not on file 11/27/2023 Substance Use Answer Date Recorded Used prescription meds for non-medical reasons N ot on file 11/27/2023 Used illegal drugs past 12 months Not on file 11/27/2023 Comments Unknown Sex and Gender Information Value Date Recorded Sex Assigned at Not on file Legal Sex Female 2:26 PM CDT Gender Identity Not on file Sexual Orientation Not on file Last Filed Vital Signs Vital Sign Reading Time Taken Comments Blood Pressure 109/60 09/08/2023 2:19 PM EDT Pulse 70 09/08/2023 2:19 PM EDT Temperature 36.4 C (97.5 F) 09/08/2023 2:19 PM EDT Respiratory Rate 18 09/08/2023 2:19 PM EDT Oxygen Saturation 93% 09/08/2023 2:19 PM EDT Inhaled Oxygen Concentration - - Weight 60.3 kg (132 lb 15 oz) 09/03/2023 6:00 AM EDT Height 165 cm (5' 4.96 ) 08/27/2023 5:16 PM EDT Body Mass Index 22.15 08/27/2023 5:16 PM EDT Plan of Treatment Health Maintenance Due Date Last Done Comments Depression Screening (12+) 1949 DTAP/TDAP/TD VACCINES (1 - Tdap) 1956 Pneumococcal 50+ years (1 of 1 - PCV) 1987 Respiratory Syncytial Virus (RSV) Adult or (1 - 1-dose 75+ series) 2012 Shingles Vaccine (Zoster) (2 of 2) 11/18/20162015 Medicare Initial AWV [id number] 11/17/2023 Tobacco Cessation Counseling and Screening (12+) 08/27/2024 08/27/2023 Falls Risk Screening 11/16/2024 COVID-19 VACCINE ( season) 2025 10/01/2021, 01/23/2021, 12/26/2020 Influenza Vaccine (#1) 2025 Insurance MEDICARE ADVANTAGE Advance Directives For more information, please contact: [phone] * Full Code (Latest Code Status on File) Date Activated Date Inactivated Comments 08/27/2023 2:23 PM 09/08/2023 6:47 PM Care Teams Fire Officer Relationship Specialty Start Date End Date Demetrio Mendosa MD [address] [place] [address] [place] [address] PCP - General Adolescent Medicine 08/27/23
--- OUTSIDE RECORDS SUMMARY | 2025-08-22 08:55 | XMS_ITS | Referral Summary ---
Author Organization [facility] ([place], [place], [place], [place]) Address [address] [place] [address] Care Team Providers Care Regional Sales Director Name Role Phone Demetrio Mendosa MD Primary Care Provider [phone] Allergies Active Allergy Reactions Criticality Noted Date [...] Date Inderjit rded Speak language other than Vietnamese at home Not on file 11/27/2023 Want [...] 08/27/2023 5:16 PM EDT Plan of Treatment Not on file Insurance [facility] MEDICARE ADVANTAGE Advance Directives For more information, please contact: [phone] * Full Code (Latest Code Status on File) Date Activated Date Inactivated Comments 08/27/2023 2:23 PM 09/08/2023 6:47 PM Care Teams Regional Sales Director Relationship Specialty Start Date End Date Demetrio Menodsa MD [address] [place] [address] [place] [address] PCP - General Adolescent Medicine 08/27/23
--- OUTSIDE RECORDS SUMMARY | 2025-08-22 08:55 | XMS_ITS | Clinical Summary ---
Author Organization [facility] Address [address] [place] [address] Care Team Providers Care Regulatory Compliance Engineer Name Role Phone Unavailable Primary Care Provider Unavailabl e Social History Tobacco Use Types Packs/Day Years Used Date Smoking Tobacco: Never Assessed Comments Unknown Sex and Gender Information Value Date Recorded Sex Assigned at Not on file Legal Sex Female 8:20 PM EDT Gender Identity Not on file Sexual Orientation Not on file Plan of Treatment Health Maintenance Due Date Last Done Comments [facility]-Bone Density Scan 1937 [facility]-Depression Screening 1937 [facility]-/Child/Adol SDOH Screenings 1937 [facility]- SDOH Screenings 1955 [facility]-Adult SDOH Screenings 1955 [facility]-DTaP,Tdap,and Td Vaccines (1 - Tdap) 1956 [facility]-RSV Vaccine: 60+ Years or (1 - 1-dose 75+ series) 2012 [facility]-Zoster Vaccines (2 of 3) 11/18/2016 09/23/2016 [id number] Vaccine ( season) 2025 10/01/2021, 01/23/2021, 12/26/2020 [facility]-Influenza Vaccine (#1) 2025 [facility]-Hepatitis A Vaccines Aged Out 10/28/2018 No longer eligible based on patient's age to complete this topic [facility]-Pneumococcal Vaccine: 50+ Years Completed 09/03/2022 HPV Vaccines Aged Out No longer eligi ble based on patient's age to complete this topic [facility]-HIB Vaccines Aged Out No longer e ligible based on patient's age to complete this topic [facility]-IPV Vaccines Aged Out No longer e ligible based on patient's age to complete this topic [facility]-Rotavirus Vaccines Aged Out No lo nger eligible based on patient's age to complete this topic Insurance [facility] MEDICARE
--- OUTSIDE RECORDS SUMMARY | 2025-08-22 08:55 | XMS_ITS | Clinical Summary ---
Author Organization [facility] Address [address] [place] [address] Care Team Providers Care Pattern Mechanic Name Role Phone Demetrio Pettit MD Primary Care Provider + Allergies Active Allergy Reactions Criticality Noted Date Comments Ciprofloxacin Rash Low 02/04/2018 Medications levothyroxine (SYNTHROID, LEVOTHROID) 175 MCG tablet Take 175 mcg by mouth Every Other Day. Alternating with 150 mcg Active lisinopril (PRINIVIL,ZESTR IL) 10 MG tablet Take 10 mg by mouth Daily. Active aspirin 81 MG EC tablet Take 81 mg by mouth daily. Active cholecalciferol (VITAMIN D3) 1000 UNITS tablet Take 1,000 Units by mouth Daily. Active rosuvastatin (CRESTOR) 10 MG tablet Take 10 mg by mouth Daily. Active clonazePAM (KlonoPIN) 0.5 MG tablet Take 0.5 mg by mouth As Needed for Anxiety. 8 Active Probiotic Product (Dotspin PO) Take 1 capsule by mouth Daily. Active Multiple Vitamins-Minera ls (PRESERVISION AREDS 2 PO) Take 1 tablet by mouth 2 (Two) Times a Day. Active loratadine (CLARITIN) 10 MG tablet Take 10 mg by mouth Daily As Needed for Allergies. Active furosemide (LASIX) 20 MG tablet Take one tablet daily as needed for worsening SOB, wt gain, and swelling as directed 30 tablet 3 8 Active Additional Information Patient taking differently: 20 mg Daily, Take one tablet daily as needed for worsening SOB, wt gain, and swelling as directed, Reported on 09/04/2021 potassium chloride (K-DUR) 10 MEQ CR tablet TAKE 1 TABLET BY MOUTH ONCE DAILY ONLY WHEN TAKING FUROSEMIDE (LASIX) 30 tablet 3 8 Active bisoprolol (ZEBeta) 10 MG tablet TAKE 1 TABLET BY MOUTH TWICE DAILY 180 tablet 3 0 Active dilTIAZem CD (Cartia XT) 240 MG 24 hr capsule Take 1 capsule by mouth 2 (Two) Times a Day. 180 capsule 3 1 Active rivaroxaban (Xarelto) 20 MG tablet Take 1 tablet by mouth Daily. 30 tablet 11 1 Active Active Problems Problem Noted Date Diagnosed Date SSS (sick sinus syndrome) 04/14/2018 Permanent atrial fibrillation 02/08/2018 Atrial fibrillation 02/10/2017 CVA (cerebral vascular accident) 02/10/2017 Essential hypertension 02/10/2017 Family History Medical History Relation Name Comments Cancer Father No Known Problems Mother No Known Problems Sister 1 No Known Problems Sister 2 No Known Problems Sister 3 Relation Name Status Comments Father Mother Sister 1 Alive Sister 2 Alive Sister 3 Alive Social History Tobacco Use Types Packs/Day Years Used Date Smoking Tobacco: Never Smokeless Tobacco: Never Alcohol Use Standard Drinks/Week Comments Yes 1 (1 standard drink = 0.6 oz pur e alcohol) nightly Abuse Screen Answer Date Recorded Unsafe at Home or Work/School Not on file Feels Threatened by Someone? Not on file 07/2023 Does Anyone Keep You from Co ntacting Others or Doint Things Outside the Home? Not on file 2023 Physical Sign of Abuse Present Not on file 1 Housing Stability Answer Date Recorded Current Living Arrangements Not on file 07/2023 Potentially Unsafe Housing Conditions Not on parisa e 2023 Family and Community Support Answer Durga e Recorded Help with Day-to-Day Activities Not on file 2023 Lonely or Isolated Not on file 2023 Employment Answer Date Recorded Do you want help finding or keeping work or a rafy b? Not on file 2023 Disabilities Answer Date Recorded Concentrating, Remembering, or Making Decisions Difficulty Not on file 2023 Doing Errands Independently Difficulty Not on fi le 2023 Education Answer Date Recorded Help with school or training? Not on file Preferred Language Not on file 2023 Comments No Sex and Gender Information Value Date Recorded Sex Assigned at Not on file Legal Sex Female 10:24 AM EDT Gender Identity Not on file Sexual Orientation Not on file Last Filed Vital Signs Vital Sign Reading Time Taken Comments Blood Pressure 128/74 09/04/2021 1:36 PM EDT Pulse 73 09/04/2021 1:36 PM EDT Temperature 37 C (98.6 F) 07/25/2020 3:08 PM EDT Respiratory Rate 16 07/08/2018 12:59 PM EDT Oxygen Saturation 96% 09/04/2021 1:36 PM EDT Inhaled Oxygen Concentration - - Weight 78.5 kg (173 lb) 09/04/2021 1:36 PM EDT Height 166.4 cm (5' 5.5 ) 09/04/2021 1:36 PM EDT Body Mass Index 28.35 09/04/2021 1:36 PM EDT Plan of Treatment Health Maintenance Due Date Last Done Comments DXA SCAN 1937 TDAP/TD VACCINES (1 - Tdap) 1956 Pneumococcal Vaccine 50+ (1 of 1 - PCV) 1987 RSV Vaccine - Adults (1 - 1- dose 75+ series) 2012 ZOSTER VACCINE (2 of 3) 11/18/2016 09/23/2016 ANNUAL PHYSICAL 05/05/2017 INFLUENZA VACCINE 06/16/2025 COVID-19 Vaccine (3 - season) 07/17/202508/2021, 12/26/2020 Medical Devices Implanted Type Area Gusset Maker Device Identifier Shelf Expiration Date Model / Serial / Lot Pacemaker-2010 Implanted:06/04 (Quantity not on file) Pacemaker [employer] Insurance MEDICARE A & B [facility] OPTIONS Advance Directives Documents on File Type Date Recorded Patient Fiber Product Cutting Machine Operator Expl anation PATIENT ADVANCE DIRECTIVES - SCAN 09/04/2021 1:09 PM [id number] * Full Code (Latest Code Status on File) Date Activated Date Inactivated Comments 02/08/2018 10:50 AM 02/10/2018 7:11 PM Care Teams Pattern Mechanic Relationship Specialty Start Date End Date Demetrio Pettit MD PCP - General Family Medicine 01/15/18
--- NOTE | 2025-08-22 09:00 | CA_ITS ---
FINAL REPORT TECHNIQUE: Multiple transverse and longitudinal images were performed of right the femoral-popliteal deep venous system with augmentation and compression maneuvers. CLINICAL HISTORY: SEVERE BRUISING LATERAL RIGHT CALF THAT APPEARED THIS AM,NKI,PT ON XARELTO,PAIN RLE FINDINGS: Right lower extremity duplex ultrasound demonstrates normal flow in the deep venous system. There is no abnormal echogenicity to suggest thrombus. There is normal compression and augmentation. IMPRESSION: No evidence of right lower extremity DVT. Reviewed, Interpreted and Dictated by Roberta Clark MD Transcribed by Agatha Dailey Authenticated and [facility]
[2025-08-22 09:23] LABS: Hematocrit 43.5 % (37.0-47.0); Hemoglobin 14.1 g/dL (12.2-16.2); Immature Granulocytes % 0.3 %; Mean Corpuscular HGB Conc 32.4 g/dL (31.8-35.4); Mean Corpuscular Hemoglobin 29.6 pg (27.0-31.2); Mean Corpuscular Volume 91.4 fl (81-99); Nucleated Red Blood Cells % 0 %; Platelet Count 223 K/mm3 (142-424); Red Blood Count 4.76 M/mm3 (4.20-5.40); Red Cell Distribution Width-SD 56.2 fL; White Blood Count 6.6 K/mm3 (4.8-10.8)
[2025-08-22 09:39] LABS: INR 1.82 (0.9-1.1); Prothrombin Time 19.3 seconds (10.1-12.5)
--- NOTE | 2025-08-22 10:09 | CT_ITS ---
FINAL REPORT TECHNIQUE: Postcontrast imaging from the distal thigh through the foot of the right lower extremity were obtained. Extensive 3-D reconstruction images were performed. A CTA was performed. This study was performed with techniques to keep radiation doses as low as reasonably achievable (ALARA). Individualized dose reduction techniques using automated exposure control or adjustment of mA and/or kV according to the patient's size were employed. CLINICAL HISTORY: Expanding spontaneous hematoma lateral leg FINDINGS: Evaluation of the popliteal artery is limited at the level of the knee due to artifact related to arthroplasty hardware. There is no acute osseous abnormality of the right leg or imaged foot. There is three-vessel runoff in the calf through the foot. There is no evidence of occlusion or stenosis of the vessels. Cutaneous and subcutaneous collection is seen along the lateral aspect of the proximal leg measuring 4.4 x 1.8 cm in axial dimension which extends 4.5 cm in craniocaudad dimension. On the more delayed, postcontrast imaging is a curvilinear, increased density within this collection that equals the density within the arterial vessels of the lower extremity. This is consistent with active hemorrhage within the collection. A discrete feeding vessel is not confidently identified. Mild skin thickening is seen extending inferiorly to just above the ankle. IMPRESSION: Collection within the cutaneous and subcutaneous tissues of the lateral proximal leg which is likely a hematoma. This demonstrates active hemorrhage. No discrete feeding vessel is identified. Patent arterial system of the calf through the foot. Reviewed, Interpreted and Dictated by Roberta Clark MD Transcribed by Agatha Dailey [facility]hentic[facility]
--- NOTE | 2025-08-22 10:10 | ED_ITS ---
Discharge Plan Disposition Patient Disposition: Xfer Other Condition: Fair Prescriptions Prescriptions: No Action furosemide 40 mg tablet 40 mg PO BID Qty: 180 3RF metoprolol succinate 200 mg tablet extended release 24 hr 200 mg PO BID Qty: 180 3RF rosuvastatin 10 mg tablet See Rx Instructions .ROUTE .COMPLEX Qty: 90 3RF Dose Instruction: TAKE ONE TABLET BY MOUTH EVERY DAY FOR cholesterol Rx Instructions: TAKE ONE TABLET BY MOUTH EVERY DAY FOR cholesterol spironolactone 25 mg tablet 25 mg PO DAILY Qty: 90 3RF verapamil 120 mg capsule,ext rel. pellets 24 hr 120 mg PO DAILY Qty: 90 3RF Xarelto 20 mg tablet 20 mg PO DAILY Qty: 90 3RF Rx Instructions: must administer with evening meal digoxin 125 mcg (0.125 mg) tablet 0.125 mg PO DAILY Qty: 90 3RF cholecalciferol (vitamin D3) 25 mcg (1,000 unit) capsule See Rx Instructions .ROUTE .COMPLEX Qty: 30 3RF Dose Instruction: TAKE ONE CAPSULE BY MOUTH EVERY DAY Rx Instructions: TAKE ONE CAPSULE BY MOUTH EVERY DAY potassium chloride 10 mEq capsule, extended release See Rx Instructions .ROUTE .COMPLEX Qty: 90 3RF Dose Instruction: TAKE ONE CAPSULE BY MOUTH TWICE DAILY Rx Instructions: TAKE ONE CAPSULE BY MOUTH TWICE DAILY aspirin 81 MG tablet,delayed release (DR/EC) 81 mg PO DAILY levothyroxine 200 MCG tablet 200 mcg PO DAILYDM PreserVision AREDS 2,148 mcg-113 mg-45 mg-17.4mg Tablet 1 tab PO BID TruBiotics 2 billion cell Capsule 1 cap PO DAILY Referrals Follow up/Referrals: Regina Adan APRN [Primary Care Provider, Medical] - See instructions Clinical Impressions Clinical Impression: Arterial hemorrhage, Hematoma of right lower extremity Stand Alone Forms Stand Alone Forms: Work/School Release, Transfer Record - ED Print Language Print Language: [place] Irish Discharge ED Provider: Sloan Cervantes General Adult HPI General Chief complaint: PAIN Stated complaint: pain in Rt leg Time Seen by Provider: 08/22/25 08:48 Mode of Arrival: Ambulatory Source of Information: Patient Description of Symptoms (Recalled from ER Triage Doc. by RN): patient states lastnight she noticed a small quarter size place under her skin on right calf today the place has doubled. and painful to the touch and burning, she has bruising around site. 06/25 pain takes xarelto History of Present Illness HPI narrative: This is an 89-year-old female patient, with past medical history of hypertension, hyperlipidemia, heart failure, and atrial fibrillation anticoagulated on Xarelto, who is presenting to the emergency department today for evaluation of a right lower extremity hematoma. Patient has had multiple hematomas on her lower extremities in the past. 1 of these occasions she had active arterial extravasation with rapidly spreading hematoma formation on the left lower extremity. This required surgical intervention of the left lower extremity. She then was seen here in our emergency department on a separate occasion where she struck her medial lower extremity against a car door and had hematoma formation on the lower extremity. During this appointment she did not have any active extravasation and was discharged home with instructions to hold her anticoagulation for couple of days. Her hematoma did get significantly better. She now presents today with a hematoma on the lateral aspects of the right lower extremity below the knee. She states that she did not have any injury to the leg at this time and this hematoma formation is now spontaneous. She states initially when this hematoma began it was approximately the size of a quarter but it is now expanded inferiorly along the right lower extremity as well as somewhat more in the lateral direction. She has not had any lightheadedness or symptoms of anemia Related Data Home Medications ?Medication ?Instructions ?Recorded ?Confirmed aspirin 81 mg tablet,delayed 81 mg PO DAILY [facility] th 08/12/18 06/21/25 release Held on 08/27/23. Instructions: Resume on 08/31/23. levothyroxine 200 mcg tablet 200 mcg PO DAILYDM thyroi d 02/28/22 06/21/25 Lactobacillus 1 cap PO DAILY GI health 10/0806/21/25 acidophilus-Bifidobac.animalis 2 billion cell capsule (TruBiotics) vitamins A,C,L-agbr-uqdqor 2,148 1 tab PO BID 08/26/23 06/21/25 mcg-113 mg-45 mg-17.4 mg tablet (PreserVision AREDS) Previous Rx's ?Medication ?Instructions ?Recorded cholecalciferol (vitamin D3) 25 See Rx Instructions .R oute 01/16/25 mcg (1,000 unit) capsule .COMPLEX #30 ea potassium chloride 10 mEq See Rx Instructions .Route 0 02/14/25 capsule,extended release .COMPLEX #90 caps digoxin 125 mcg (0.125 mg) tablet 0.125 mg PO DAILY #9 0 tabs 06/21/25 furosemide 40 mg tablet 40 mg PO BID #180 tabs 06/21 metoprolol succinate 200 mg 200 mg PO BID #180 tabs tablet,extended release 24 hr rivaroxaban 20 mg tablet (Xarelto) 20 mg PO DAILY #90 tabs 06/21/25 rosuvastatin 10 mg tablet See Rx Instructions .Route 0 06/21/25 .COMPLEX #90 tabs spironolactone 25 mg tablet 25 mg PO DAILY #90 tabs verapamil 120 mg 24 hr 120 mg PO DAILY #90 caps 05/10 capsule,extended release Allergies Allergy/AdvReac Type Severity Reaction Status Date / Time ciprofloxacin (From CIPRO) Allergy Mild I-RASH Verified 06/21/25 11:43 [facility] Disclaimer: The information contained in this section may have been updated after the patient was seen, as this information can be updated by other users. Medical History Chills Hypokalemia Pleural effusion on right Lung collapse Elevated diaphragm Abnormality of lung on CXR Pleural effusion on right Acute respiratory failure with hypoxia Acute on chronic diastolic (congestive) heart failure Shortness of Breath Hyperlipidemia Bleeding from open wound of chest wall Combined congestive systolic and diastolic heart failure OZZIE (acute kidney injury) Duodenitis SIRS (systemic inflammatory response syndrome) UTI (urinary tract infection) Congestive heart failure Surgical History History of colonoscopy Hx of cholecystectomy Cardiac pacemaker in situ Family History Other Diabetes Social History Smoking Status: Never smoker alcohol intake: never substance use type: denies use current occupational status: retired Travel in the last 8 weeks?: None household members: none housing: house caffeine: No Have you lived/traveled outside [place] in past 30 days?: No Contact w/someone who lives/traveled outside US past 30 days?: No Exposure to someone with infectious disease in past 14 days?: No Do you have a fever (greater than 100.4 F or 38 C)?: No Have you tested positive for COVID-19?: No Exposed to someone with COVID-19 in past 14 days?: No Do you have a sore throat?: No Do you have a cough?: No Do you have any weakness?: No Do you have any diarrhea?: No Are you experiencing any unusual bleeding?: No Do you have any muscle aches/pain?: No Do you have any abdominal pain?: No Are you experiencing loss of taste or smell?: No Other Medical History Have you received the Flu Vaccine for this season: No Have you received the Pneumonia Vaccine: Yes ROS Obtained: Yes Systems reviewed as appropriate & no additional complaints except as documented Physical Exam General General appearance: other (See MDM) Respiratory Respiratory exam: Present other (See MDM) Cardiovascular Cardiovascular exam: Present other (See MDM) Neurological Exam Neurological exam: Present other (See MDM) Medical Decision Making Medical Records Medical records reviewed: Yes I reviewed the patient's medical records. Screening: Per USPSTF and CDC recommendations, given the prevalence of disease in our region, it is our hospital?s policy to screen for HIV and viral Hepatitis for all patients aged 18 and over and those with ongoing risk factors. Leon Inquiry Pt receiving controlled substance: No Leon was queried for this patient: No Vital Signs: 08/22/25 08:49 08/22/25 08:50 08/22/25 15:06 Temperature 97.8 F Temperature Source Oral Pulse Rate 70 71 Pulse Rate [Right Radial] 70 Respiratory Rate 14 16 Blood Pressure 156/90 H 141/77 H Blood Pressure [Right Arm] 156/90 H Blood Pressure Mean [Right Arm] 112 Blood Pressure Source Blood Pressure Source [Right Arm] Automatic Cuff Blood Pressure Position Blood Pressure Position [Right Arm] Supine 02 Sat by Pulse Oximetry 94 L 96 93 L Oxygen Delivery Method Room Air Room Air 08/22/25 15:53 Temperature 97.8 F Temperature Source Oral Pulse Rate 70 Pulse Rate [Right Radial] Respiratory Rate 15 Blood Pressure 159/80 H Blood Pressure [Right Arm] Blood Pressure Mean [Right Arm] Blood Pressure Source Automatic Cuff Blood Pressure Source [Right Arm] Blood Pressure Position Sitting Blood Pressure Position [Right Arm] 02 Sat by Pulse Oximetry Oxygen Delivery Method Room Air Lab Data Lab Results 08/22/25 09:16: WBC 6.6, RBC 4.76, Hgb 14.1, Hct 43.5, MCV 91.4, MCH 29.6, MCHC 32.4, RDW 16.8, Plt Count 223, MPV 9.7, Neut % (Auto) 66.9, Lymph % (Auto) 20.2, [place] % (Auto) 9.4 H, Eos % (Auto) 1.8, Baso % (Auto) 1.4, Neut # (Auto) 4.4, Lymph # (Auto) 1.3, [place] # (Auto) 0.6, Eos # (Auto) 0.1, Baso # (Auto) 0.1, PT 19.3 H, INR 1.82 H, Sodium 142, Potassium 4.4, Chloride 105, Carbon Dioxide 22, Anion Gap 19.4 H, BUN 26 H, Creatinine 0.80, Estimated Creat Clear 43, Estimated GFR 68, Est GFR ( Amer) 82, Glucose 126 H, Calcium 9.2, Total Bilirubin 2.6 H, AST 39 H, ALT 27, Alkaline Phosphatase 131 H, Total Protein 7.5, Albumin 4.4, Globulin 3.1, Albumin/Globulin Ratio 1.4, HCV Ab PHILLY w/Rflx PCR Qn Negative, HIV Ag/Ab Combo Qual Negative 08/22/25 09:16 08/22/25 09:16 Orders (Tests/Meds): ED MEDICATIONS Discontinued Medications Generic Name Dose Route Start Last Admin Trade Name Andryq PRN Reason Stop Dose Admin Acetaminophen 1,000 mg 08/22/25 12:14 08/22/25 12:16 Acetaminophen 500mg Tab PO 08/22/25 12:15 1,000 mg ONCE ONE Administration Iopamidol 100 ml 08/22/25 11:29 08/22/25 11:33 Iopamidol-370 (76%);100ml Bottle IV 08/22/25 11:30 100 ml ONCE ONE Administration Morphine Sulfate 4 mg 08/22/25 12:05 08/22/25 12:12 Morphine 4mg/Ml Syringe IV 08/22/25 12:06 Not Given ONCE ONE Ondansetron HCl 4 mg 08/22/25 12:05 08/22/25 12:12 Ondansetron 4mg/2ml Vial IV 08/22/25 12:06 Not Given ONCE ONE Sodium Chloride 10 ml 08/22/25 11:29 08/22/25 11:33 Sodium Chloride 0.9% 10ml Syr (Rad Only) IV 08/22/25 11:30 10 ml ONCE ONE Administration Sodium Chloride 50 ml 08/22/25 11:29 08/22/25 11:33 0.9 % Sodium Chloride 50 Ml Vial IV 08/22/25 11:30 50 ml ONCE ONE Administration ORDERS Category Date Time Status CT angio LE RT Stat Cat Scan 08/22/25 10:09 Completed CBC w/Auto Diff [Complete Blood Count Auto Diff] Stat Lab 08/22/25 09:16 Completed CMP [Comprehensive Metabolic Panel] Stat Lab 08/22/25 09:16 Completed HIV Combo Stat Lab 08/22/25 09:16 Completed Hepatitis C Ab Qual. W/ RFX Stat Lab 08/22/25 09:16 Completed PT INR [Prothrombin Time INR] Stat Lab 08/22/25 09:16 Completed CA venous doppler LE RT Stat Y 08/22/25 09:00 Completed Medical Decision Narrative: In summary, this is an 89-year-old female patient who is presenting to the emergency department today for evaluation of a spontaneous right lower extremity hematoma. Comorbidities include hypertension, hyperlipidemia, heart failure, and atrial fibrillation anticoagulated on Xarelto. 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 On initial evaluation of the patient they were resting comfortably in no acute distress and nontoxic in appearance. They are hemodynamically stable, saturating well room air, and are neurologically intact. On physical examination there is a hematoma just distal to the region of the fibular head on the lateral right lower extremity. There is ecchymosis that is spreading even further lateral and inferiorly down the leg. There is no open wound, no active external bleeding. She appears to have good color and no conjunctival pallor. Capillary refills good. Differential diagnosis includes ruptured subcutaneous varicose vein, arterial hemorrhage, subcutaneous hematoma, anemia, coagulopathy, among others. Workup was initiated with hematologic labs. There have also been studies that have demonstrated a higher rate of DVT in the lower extremity amongst people with bleeding from varicose veins. Therefore we will rule out a right lower extremity DVT with Doppler ultrasound. Additionally, she states that this lesion has significantly enlarged since onset which is likely being exacerbated by her anticoagulants however, we will rule out arterial extravasation with a CT angio of the right lower extremity. Throughout her stay in the emergency department she has had pretty rapid expansion of the hematoma along the right lower extremity. Right lower extremity Doppler was personally interpreted by me and demonstrates no acute Deep vein thrombosis. Official radiology read is in agreement Labs were personally interpreted by me and demonstrate no evidence of anemia, H&H is 14.1/43.5. INR is mildly elevated at 1.82. CMP shows no acute findings. Bilirubin is stably high from prior, and can also be seen from metabolism of large hematomas We did proceed with a CTA of the right lower extremity with runoff. The CTA was interpreted by radiology and demonstrates active arterial extravasation into the hematoma of her right lower extremity. We do not have access to vascular surgeon at our hospital. Therefore I had an interactive discussion with the [facility] transfer [place]. They have spoken with vascular surgery, Dr. Nelson, and have recommended compressive dressings and transfer to their facility.. I have had Vaseline gauze, 4 x 4's, and compressive awa wraps on the right lower extremity for period of 4 hours now. Patient remains hemodynamically stable. We have held her rivaroxaban while here in the emergency department. She was ultimately transferred to stable condition UPDATED DAILY MEDICATION LIST CONFIRMED WITH PHARMACY PRIOR TO DEPARTURE: Xarelto 20 mg daily Levothyrox 200 mcg once daily Digoxin 125 mcg once daily Spironolactone 125 once daily Vitamin D 1000 units once daily Toprol XL 200 mg twice daily Rosuvastatin 10 mg nightly Potassium 10 meq twice daily Verapamil ER 120 once daily Gabapentin 100 once daily Critical Care Critical Care Time Critical Care Time: No
[2025-08-22 11:03] LABS: Hepatitis C Ab Qual. W/ RFX NEGATIVE (Negative)
[2025-08-22] MEDS: IOPAMIDOL-370 (76%);100ML BOTTLE 100 ML IV (11:33)
[2025-08-22] MEDS: SODIUM CHLORIDE 0.9% 10ML SYR (RAD ONLY) 10 ML IV (11:33)
[2025-08-22] MEDS: 0.9 % SODIUM CHLORIDE 50 ML VIAL IV (11:33)
[2025-08-22] MEDS: ACETAMINOPHEN 500MG TAB 1000 MG PO (12:16)
[2025-08-22 12:24] LABS: Alanine Aminotransferase 27 U/L (12-78); Albumin Level 4.4 g/dl (3.5-5.0); Albumin/Globulin Ratio 1.4 (1.1-1.8); Alkaline Phosphatase 131 U/L (38-126); Anion Gap 19.4 mEq/L (5-15); Aspartate Amino Transferase 39 U/L (14-36); Bilirubin,Total 2.6 mg/dl (0.2-1.3); Blood Urea Nitrogen 26 mg/dl (7-17); Calcium 9.2 mg/dl (8.4-10.2); Carbon Dioxide 22 mmol/L (22.0-30.0); Chloride 105 mmol/L (98-107); Creatinine Clearance Estimated 43 mL/min (50-200); Creatinine,Serum 0.80 mg/dl (0.52-1.04); Estimated Glomerular Filt Rate 68 ml/min (>60); GFR (African American) 82 ML/MIN (>60); Globulin 3.1 g/dL (1.3-3.2); Glucose 126 mg/dl (74-100); Potassium 4.4 mmoL/L (3.5-5.1); Sodium 142 mmol/L (136-145); Total Protein,Serum 7.5 g/dl (6.3-8.2)
--- NOTE | 2025-08-22 14:46 | PC.NURSE ---
calling at this time.
--- NOTE | 2025-08-22 14:49 | PC.NURSE ---
calling [facility] at this time.
--- NOTE | 2025-08-22 14:50 | PC.NURSE ---
calling [facility] at this time.
--- NOTE | 2025-08-22 14:52 | PC.NURSE ---
Called Radiology to power share images to [facility]
[2025-08-22 15:06] VITALS: BP 141/77; PULSE 71; RESP 16; O2SAT 93
[2025-08-22 15:53] VITALS: BP 159/80; PULSE 70; RESP 15; TEMP 36.6; O2SAT 98
== END 2025-08-22 15:55 | disposition other institution (70) ==
PROVIDERS: Emergency Provider Student in an Organized Health Care Education/Training Program; PCP Nurse Practitioner Family
DX: S80.11XA Contusion of right lower leg, initial encounter (principal); R58 Hemorrhage, not elsewhere classified; I11.0 Hypertensive heart disease with heart failure; I50.9 Heart failure, unspecified; E78.5 Hyperlipidemia, unspecified; I48.91 Unspecified atrial fibrillation; Z79.01 Long term (current) use of anticoagulants
CPT/HCPCS: 73706; 80053; 85025; 85610; 86803; 87389; 93971; 99285; Q9967